=== PATIENT | female | born 1955 | race Caucasian/White ===

== ENCOUNTER 2022-12-10 22:02 | Inpatient (IN) | payer MEDICARE, OTHER ==
[2022-12-10] MEDS ORDERED: SODIUM CHLORIDE 0.9% 1,000 ML IV STA (23:37)
[2022-12-10] MEDS ORDERED: KETOROLAC 15 MG/ML 1 ML VIAL IVP STA (23:37)
[2022-12-10] MEDS ORDERED: ONDANSETRON 4 MG/2 ML VIAL IVP STA (23:37)
[2022-12-11 00:02] LABS: Basophils % (A) 0 %; Eosinophils # (A) 0.1 k/uL (0-0.7); Eosinophils % (A) 1 %; HGB 12.8 gm/dL (11.4-16.0); Lymphocytes # (A) 1.7 k/uL (1.0-4.8); Lymphocytes % (A) 17 %; MCH 31.6 pg (25.0-35.0); MCHC 35.6 g/dL (31.0-37.0); MCV 88.7 fL (80.0-100.0); Mean Platelet Volume 7.9; Monocytes # (A) 0.6 k/uL (0-1.0); Monocytes % (A) 6 %; Neutrophils # (A) 7.4 k/uL (1.3-7.7); Neutrophils % (A) 73 %; Platelet Count 206 k/uL (150-450); RBC 4.06 m/uL (3.80-5.40); RDW 13.2 % (11.5-15.5); WBC 10.2 k/uL (3.8-10.6)
[2022-12-11 00:10] LABS: Appearance,Urine Clear (Clear); Bilirubin,Urine Negative (Negative); Blood,Urine Negative (Negative); Color,Urine Colorless; Glucose,Urine (UA) Negative (Negative); Ketones,Urine Trace (Negative); Leukocyte Esterase,Urine Small (Negative); Nitrite,Urine Negative (Negative); PH, Urine 7.5 (5.0-8.0); Protein,Urine Negative (Negative); RBC,Urine 1 /hpf (0-5); Specific Gravity,Urine 1.004 (1.001-1.035); Urobilinogen,Urine <2.0 mg/dL (<2.0); WBC,Urine 8 /hpf (0-5)
[2022-12-11 00:19] LABS: ALT 17 U/L (4-34); AST 29 U/L (14-36); African American GFR (CKD) >90 (>60 ml/min/1.73 sqM); Alkaline Phosphatase 61 U/L (38-126); Anion Gap 11 mmol/L; Blood Urea Nitrogen 9 mg/dL (7-17); Calcium 8.7 mg/dL (8.4-10.2); Carbon Dioxide 21 mmol/L (22-30); Chloride 84 mmol/L (98-107); Glucose 99 mg/dL (74-99); Lipase 43 U/L (23-300); Non-African American GFR(CKD) >90 (>60 ml/min/1.73 sqM); Potassium 4.3 mmol/L (3.5-5.1); Total Bilirubin 0.8 mg/dL (0.2-1.3); Total Protein 6.4 g/dL (6.3-8.2)
[2022-12-11 00:34] LABS: Sodium 116 mmol/L (137-145)
[2022-12-11] MEDS ORDERED: SODIUM CHLORIDE 0.9% 1,000 ML IV STA (01:18)
--- NOTE | 2022-12-11 04:18 | US ---
EXAM: US Retroperitoneal Limited, Renal CLINICAL HISTORY: ITS.REASON US Reason: hyponatremia TECHNIQUE: Real-time limited ultrasound of the retroperitoneum with image documentation. COMPARISON: No relevant prior studies available. FINDINGS: Right Kidney: 9 x 4.3 x 4.9 cm Left Kidney: 9.5 x 4.6 x 4.1 cm Right Kidney: No hydronephrosis Left Kidney: No hydronephrosis Bladder: anechoic Jets seen: Left only. There is no evidence for hydronephrosis at this point in time. No nephrolithiasis is seen. IMPRESSION: There is no evidence for hydronephrosis at this point in time. No nephrolithiasis is seen.
[2022-12-11 04:55] LABS: ALT 15 U/L (4-34); AST 27 U/L (14-36); African American GFR (CKD) >90 (>60 ml/min/1.73 sqM); Albumin 3.6 g/dL (3.5-5.0); Alkaline Phosphatase 50 U/L (38-126); Anion Gap 7 mmol/L; Blood Urea Nitrogen 8 mg/dL (7-17); Calcium 8.3 mg/dL (8.4-10.2); Carbon Dioxide 23 mmol/L (22-30); Chloride 89 mmol/L (98-107); Glucose 93 mg/dL (74-99); Non-African American GFR(CKD) >90 (>60 ml/min/1.73 sqM); Potassium 4.1 mmol/L (3.5-5.1); Total Bilirubin 0.9 mg/dL (0.2-1.3); Total Protein 5.9 g/dL (6.3-8.2)
[2022-12-11 05:08] LABS: Sodium 119 mmol/L (137-145)
--- NOTE | 2022-12-11 05:24 | ED ---
Female Urogenital HPI - General Chief complaint: Urogenital Stated complaint: anxiety Time Seen by Provider: 12/10/22 23:30 Source: patient Mode of arrival: ambulatory Limitations: no limitations - History of Present Illness Initial comments: Patient is a 67-year-old female who presents to the emergency department for weakness. Patient states "she just doesn't feel good". States on 11/28 she had tumor removal in the bladder and right kidney with Dr. Bunn. States biopsy came back as bladder cancer. She has not been referred to an oncologist yet. S he reports nausea without vomiting and lightheadedness. No chest pain or shortness of breath. She reports mild pain in her right middle back, no injury. She denies fever, chills, abdominal pain, burning with urination, increased urinary frequency/hesitancy, blood in the urine. Patient does note she had a Barrow catheter removed on Sunday. - Related Data Allergies Allergy/AdvReac Type Severity Reaction Status Date / Time prednisone Allergy Rash/Hives Verified 12/10/22 22:23 propoxyphene [From Darvon] Allergy Rapid Verified 12/10/22 22:23 Heart Rate Review of Systems ROS Statement: Those systems with pertinent positive or pertinent negative responses have been documented in the HPI. ROS Other: All systems not noted in ROS Statement are negative. Past Medical History Past Medical History: Asthma, Cancer, COPD, Eye Disorder, Hearing Disorder / Deafness, Osteoarthritis (OA) History of Any Multi-Drug Resistant Organisms: None Reported Past Surgical History: Hysterectomy Additional Past Surgical History / Comment(s): tailbone removal, biopsy Past Psychological History: No Psychological Hx Reported Smoking Status: Current some day smoker Past Alcohol Use History: None Reported Past Drug Use History: None Reported General Exam Limitations: no limitations General appearance: alert, in no apparent distress Head exam: Present: atraumatic, normocephalic, normal inspection Eye exam: Present: normal appearance, PERRL, EOMI. Absent: scleral icterus, conjunctival injection, periorbital swelling Respiratory exam: Present: normal lung sounds bilaterally. Absent: respiratory distress, wheezes, rales, rhonchi, stridor Cardiovascular Exam: Present: regular rate, normal rhythm, normal heart sounds. Absent: systolic murmur, diastolic murmur, rubs, gallop, clicks GI/Abdominal exam: Present: soft, normal bowel sounds. Absent: distended, tenderness, guarding, rebound, rigid Extremities exam: Present: normal inspection, full ROM, tenderness, normal capillary refill. Absent: pedal edema Back exam: Present: normal inspection, full ROM, tenderness. Absent: CVA tenderness (R), CVA tenderness (L), paraspinal tenderness, vertebral tenderness Neurological exam: Present: alert, oriented X3, CN II-XII intact Psychiatric exam: Present: normal affect, normal mood Skin exam: Present: warm, dry, intact, normal color. Absent: rash Course Vital Signs 12/10/22 22:23 Temperature 98.9 F Pulse Rate 75 Respiratory 18 Rate Blood Pressure 164/92 O2 Sat by Pulse 95 Oximetry Medical Decision Making - Medical Decision Making Was pt. sent in by a medical professional or institution (OLAMIDE [place], DIGITAL ASSET COORDINATOR, urgent care, hospital, or care home...) When possible be specific @ -[No] Did you speak to anyone other than the patient for history (EMS, parent, family, police, friend...)? What history was obtained from this source @ -[No] Did you review nursing and triage notes (agree or disagree)? Why? @ -[I reviewed and agree with nursing and triage notes] Were old charts reviewed (outside hosp., previous admission, EMS record, old EKG, old radiological studies, urgent care reports/EKG's, care home records)? Report findings @ -[No old charts were reviewed] Differential Diagnosis (chest pain, altered mental status, abdominal pain women, abdominal pain men, vaginal bleeding, weakness, fever, dyspnea, syncope, headache, dizziness, GI bleed, back pain, seizure, CVA, palpatations, mental health)? @ -Differential Weakness: Hypoglycemia, shock, sepsis, hyponatremia, anemia, infection, VA, ETOH, adverse medicine reaction, overdose, stroke, this is not meant to be an all-inclusive list. EKG interpreted by me (3pts min.). @ -[As above] X-rays interpreted by me (1pt min.). @ -[None done] CT interpreted by me (1pt min.). @ -[None done] U/S interpreted by me (1pt. min.). @ -[None done] What testing was considered but not performed or refused? (CT, X-rays, U/S, labs)? Why? @ -[None] What meds were considered but not given or refused? Why? @ -Offered anxiety medication patient refused. Did you discuss the management of the patient with other professionals (professionals i.e. , PA, DIGITAL ASSET COORDINATOR, lab, RT, psych nurse, delinquency prevention social worker, range operator, teacher, chief medical officer, nurse case management)? Give summary @ -Yes, Dr. Rdz. See hospital course. Was smoking cessation discussed for >3mins.? @ -[No] Was critical care preformed (if so, how long)? @ -[No] Were there social determinants of health that impacted care today? How? (Homelessness, low income, unemployed, alcoholism, drug addiction, transportation, low edu. Level, literacy, decrease access to med. care, residential, rehab)? @ -[No] Was there de-escalation of care discussed even if they declined (Discuss DNR or withdrawal of care, Hospice)? DNR status @ -[No] What co-morbidities impacted this encounter? (DM, HTN, Smoking, COPD, CAD, Cancer, CVA, ARF, Chemo, Hep., AIDS, mental health diagnosis, sleep apnea, morbid obesity)? @ -[None] Was patient admitted / discharged? Hospital course, mention meds given and route, prescriptions, significant lab abnormalities, going to OR and other pertinent info. @ -Patient presenting for weakness and malaise with nausea after recent cancer diagnosis. A&O x 4. Physical exam unremarkable. Laboratory studies obtained and significant for hyponatremia at 116. Patient given normal saline bolus and placed on windows infrastructure engineer. I did speak with Dr. Rdz who recommended continuation of normal saline with fluid restriction. He requested a repeat sodium in 4-5 hours for disposition. Repeat sodium is 119. Patient does not have symptoms of hyponatremia she is hemodynamically stable and will be admitted to medical floor instead of the ICU. Case discussed with Dr. Agrawal who accepts admission. Undiagnosed new problem with uncertain prognosis? @ -[No] Drug Therapy requiring intensive monitoring for toxicity (Heparin, Nitro, Insulin, Cardizem)? @ -[No] Were any procedures done? @ -[No] Diagnosis/symptom? @ -hyponatremia Acute, or Chronic, or Acute on Chronic? @ -acute Uncomplicated (without systemic symptoms) or Complicated (systemic symptoms)? @ -[default] Side effects of treatment? @ -[No] Exacerbation, Progression, or Severe Exacerbation? @ -[No] Poses a threat to life or bodily function? How? (Chest pain, USA, VA, pneumonia, PE, COPD, DKA, ARF, appy, cholecystitis, CVA, Diverticulitis, Homicidal, Suicidal, threat to staff... and all critical care pts) @ -yes Dr. Mayen is by attending - Lab Data Result diagrams: 12/10/22 23:47 12/11/22 04:29 Lab Results 12/10/22 12/10/22 12/10/22 Range/Units 23:30 23:30 23:47 WBC 10.2 (3.8-10.6) k/uL RBC 4.06 (3.80-5.40) m/uL Hgb 12.8 (11.4-16.0) gm/dL Hct 36.0 (34.0-46.0) % MCV 88.7 (80.0-100.0) fL MCH 31.6 (25.0-35.0) pg MCHC 35.6 (31.0-37.0) g/dL RDW 13.2 (11.5-15.5) % Plt Count 206 (150-450) k/uL MPV 7.9 Neutrophils % 73 % Lymphocytes % 17 % Monocytes % 6 % Eosinophils % 1 % Basophils % 0 % Neutrophils # 7.4 (1.3-7.7) k/uL Lymphocytes # 1.7 (1.0-4.8) k/uL Monocytes # 0.6 (0-1.0) k/uL Eosinophils # 0.1 (0-0.7) k/uL Basophils # 0.0 (0-0.2) k/uL Sodium (137-145) mmol/L Potassium (3.5-5.1) mmol/L Chloride (98-107) mmol/L Carbon Dioxide (22-30) mmol/L Anion Gap mmol/L BUN (7-17) mg/dL Creatinine (0.52-1.04) mg/dL Est GFR (CKD-EPI)AfAm (>60 ml/min/1.73 sqM) Est GFR (CKD-EPI)NonAf (>60 ml/min/1.73 sqM) Glucose (74-99) mg/dL Osmolality (280-301) mosm/kg Plasma Lactic Acid George (0.7-2.0) mmol/L Calcium (8.4-10.2) mg/dL Total Bilirubin (0.2-1.3) mg/dL AST (14-36) U/L ALT (4-34) U/L Alkaline Phosphatase (38-126) U/L Total Protein (6.3-8.2) g/dL Albumin (3.5-5.0) g/dL Lipase (23-300) U/L Urine Color Colorless Urine Appearance Clear (Clear) Urine pH 7.5 (5.0-8.0) Ur Specific [place] 1.004 (1.001-1.035) Urine Protein Negative (Negative) Urine Glucose (UA) Negative (Negative) Urine Ketones Trace H (Negative) Urine Blood Negative (Negative) Urine Nitrite Negative (Negative) Urine Bilirubin Negative (Negative) Urine Urobilinogen <2.0 (<2.0) mg/dL Ur Leukocyte Esterase Small H (Negative) Urine RBC 1 (0-5) /hpf Urine WBC 8 H (0-5) /hpf Urine Osmolality 180 (50-1400) mosm/kg 12/10/22 12/10/22 12/10/22 Range/Units 23:47 23:47 23:47 WBC (3.8-10.6) k/uL RBC (3.80-5.40) m/uL Hgb (11.4-16.0) gm/dL Hct (34.0-46.0) % MCV (80.0-100.0) fL MCH (25.0-35.0) pg MCHC (31.0-37.0) g/dL RDW (11.5-15.5) % Plt Count (150-450) k/uL MPV Neutrophils % % Lymphocytes % % Monocytes % % Eosinophils % % Basophils % % Neutrophils # (1.3-7.7) k/uL Lymphocytes # (1.0-4.8) k/uL Monocytes # (0-1.0) k/uL Eosinophils # (0-0.7) k/uL Basophils # (0-0.2) k/uL Sodium 116 L* (137-145) mmol/L Potassium 4.3 (3.5-5.1) mmol/L Chloride 84 L (98-107) mmol/L Carbon Dioxide 21 L (22-30) mmol/L Anion Gap 11 mmol/L BUN 9 (7-17) mg/dL Creatinine 0.43 L (0.52-1.04) mg/dL Est GFR (CKD-EPI)AfAm >90 (>60 ml/min/1.73 sqM) Est GFR (CKD-EPI)NonAf >90 (>60 ml/min/1.73 sqM) Glucose 99 (74-99) mg/dL Osmolality 241 L* (280-301) mosm/kg Plasma Lactic Acid George 0.8 (0.7-2.0) mmol/L Calcium 8.7 (8.4-10.2) mg/dL Total Bilirubin 0.8 (0.2-1.3) mg/dL AST 29 (14-36) U/L ALT 17 (4-34) U/L Alkaline Phosphatase 61 (38-126) U/L Total Protein 6.4 (6.3-8.2) g/dL Albumin 4.0 (3.5-5.0) g/dL Lipase 43 (23-300) U/L Urine Color Urine Appearance (Clear) Urine pH (5.0-8.0) Ur Specific [place] (1.001-1.035) Urine Protein (Negative) Urine Glucose (UA) (Negative) Urine Ketones (Negative) Urine Blood (Negative) Urine Nitrite (Negative) Urine Bilirubin (Negative) Urine Urobilinogen (<2.0) mg/dL Ur Leukocyte Esterase (Negative) Urine RBC (0-5) /hpf Urine WBC (0-5) /hpf Urine Osmolality (50-1400) mosm/kg 12/11/22 Range/Units 04:29 WBC (3.8-10.6) k/uL RBC (3.80-5.40) m/uL Hgb (11.4-16.0) gm/dL Hct (34.0-46.0) % MCV (80.0-100.0) fL MCH (25.0-35.0) pg MCHC (31.0-37.0) g/dL RDW (11.5-15.5) % Plt Count (150-450) k/uL MPV Neutrophils % % Lymphocytes % % Monocytes % % Eosinophils % % Basophils % % Neutrophils # (1.3-7.7) k/uL Lymphocytes # (1.0-4.8) k/uL Monocytes # (0-1.0) k/uL Eosinophils # (0-0.7) k/uL Basophils # (0-0.2) k/uL Sodium 119 L* (137-145) mmol/L Potassium 4.1 (3.5-5.1) mmol/L Chloride 89 L (98-107) mmol/L Carbon Dioxide 23 (22-30) mmol/L Anion Gap 7 mmol/L BUN 8 (7-17) mg/dL Creatinine 0.44 L (0.52-1.04) mg/dL Est GFR (CKD-EPI)AfAm >90 (>60 ml/min/1.73 sqM) Est GFR (CKD-EPI)NonAf >90 (>60 ml/min/1.73 sqM) Glucose 93 (74-99) mg/dL Osmolality (280-301) mosm/kg Plasma Lactic Acid George (0.7-2.0) mmol/L Calcium 8.3 L (8.4-10.2) mg/dL Total Bilirubin 0.9 (0.2-1.3) mg/dL AST 27 (14-36) U/L ALT 15 (4-34) U/L Alkaline Phosphatase 50 (38-126) U/L Total Protein 5.9 L (6.3-8.2) g/dL Albumin 3.6 (3.5-5.0) g/dL Lipase (23-300) U/L Urine Color Urine Appearance (Clear) Urine pH (5.0-8.0) Ur Specific [place] (1.001-1.035) Urine Protein (Negative) Urine Glucose (UA) (Negative) Urine Ketones (Negative) Urine Blood (Negative) Urine Nitrite (Negative) Urine Bilirubin (Negative) Urine Urobilinogen (<2.0) mg/dL Ur Leukocyte Esterase (Negative) Urine RBC (0-5) /hpf Urine WBC (0-5) /hpf Urine Osmolality (50-1400) mosm/kg Disposition Clinical Impression: Hyponatremia Disposition: ADMITTED IP TO THIS HOSP Condition: Stable Referrals: Teresa Subramanian [Primary Care Provider] - 1-2 days
[2022-12-11] MEDS ORDERED: NALOXONE 0.4 MG/ML 1 ML VIAL IV PRN (05:42)
[2022-12-11] MEDS ORDERED: MELATONIN 3 MG TABLET PO PRN (08:42)
[2022-12-11] MEDS ORDERED: HYDROcodone/APAP 5-325MG 1 EACH TAB PO PRN (08:42)
[2022-12-11] MEDS ORDERED: ONDANSETRON 4 MG/2 ML VIAL IVP PRN (08:42)
--- NOTE | 2022-12-11 09:04 | P.HPIM ---
History of Present Illness H&P Date: 12/11/22 Patient is a 67-year-old female with asthma, osteoarthritis, and nicotine dependency who presented to the hospital with complaints of "not feeling good". She had a bladder tumor ressection and right kidney biopsy on 11/28/[address] Nova. In the ER she underwent an extensive evaluation. Initial vital signs were remarkable for hypertension with a blood pressure 164/92. Initial laboratory analysis was remarkable for sodium of 116, chloride 84, carbon dioxide 21, creatinine 0.43, and osmolality of 241. In the ER she was given 1 L of normal saline, Zofran, and Toradol. Renal ultrasound was performed which showed no hydronephrosis. Nephrology was contacted. Arrangements are made for admission. Patient seen and examined at bedside. She had a bladder tumor ressection and right kidney biopsy on 11/28/[address] Nova. She had baires removed on 12/08/22. She diens any difficulty with urination at home.Starting yesterday after breakfast she started to feel off and nauseated which increaed in intensity. Pain and tenderness in her abd and back. She was feeling very weak like she could not stand up. She was feeling dizzy as well. No chest pain or shortness of breath. No fever but did have some chills. She had been eating well till yesterday when she was so nauseated. On discharge home she was sent with toradol, zofran, and keflex. Has been using tylenol at home. Vital signs reviewed General: nontoxic, no distress, appears at stated age Derm: warm, dry Eyes: EOMI, no lid lag, anicteric sclera, pupils equal round reactive to light ENT: Nose and ears atraumatic, no thrush, no pharyngeal erythema Cardiovascular: S1S2 reg, no murmur, positive posterior tibial pulse bilateral, no edema, capillary refill less than 2 seconds Lungs: clear to auscultation bilateral, no rhonchi, no rales, no wheeze, no accessory muscle use Abdominal: soft, nontender to palpation, no guarding, no appreciable organomegaly, normal bowel sounds Ext: no gross muscle atrophy, muscle strength 5 out of 5 in all 4 extremities, no contractures Neuro: CN II-XII grossly intact, light touch intact all 4 extremities, finger to nose within normal limits, Psych: Alert, oriented, appropriate affect Assessment: Hyponatremia- undetermined etiology Bladder tumor with recent resection COPD without exacerbation Arthritis Nicotine dependency Imaging: Renal ultrasound was performed which showed no hydronephrosis. Data Review: Initial laboratory analysis was remarkable for sodium of 116, chloride 84, carbon dioxide 21, creatinine 0.43, and osmolality of 241. Urine Osmolality of 181. Plan: - Admit patient to , mix house tender notified - case discussed with Dr. Rdz and plan will be for fluid restriction, following labs - fall and seizure precautions - BMP now and in 6 hours - Resume home medications of calcium 600 mg daily, PPI, & Symbicort 1 puff twice daily - Maintain baires cath at this time - Dr. Nova notified of admission willdiscuss treatment options with patient regarding biopsy results. - Tylenol 650 mg 4 times daily - [place] 5/325 mg 4 times daily prn pain - BMP and CMC in AM The patient is admitted with an anticipated greater than 2 midnight stay for evaluation of Hyponatremia. Surrogate decision-maker: Son CODE STATUS:Full DVT prophylaxis: SCDs Discussed with: Patient, nursing, Dr. Rdz Anticipated discharge date: [facility] clinical course Anticipated discharge place: [facility] This dictation was prepared using [employer] voice recognition software. Though every attempt is made to correct errors during during dictation some may still exist. Past Medical History Past Medical History: Asthma, Cancer, COPD, Eye Disorder, Hearing Disorder / Deafness, Osteoarthritis (OA) Additional Past Medical History / Comment(s): Glaucoma History of Any Multi-Drug Resistant Organisms: None Reported Past Surgical History: Hysterectomy Additional Past Surgical History / Comment(s): tailbone removal, biopsy Past Psychological History: No Psychological Hx Reported Smoking Status: Current some day smoker Past Alcohol Use History: None Reported Past Drug Use History: None Reported Medications and Allergies Home Medications Medication Instructions Recorded Confirmed Type Acetaminophen [Tylenol Extra 500 mg PO Q6H PRN 12/11/22 12/11/22 History Strength] Brimonidine Tartrate [Alphagan P 1 drops BOTH EYES BID 12/11/22 12/11/22 History 0.2% Ophth Soln] Calcium Carbonate [Calcium] 600 mg PO DAILY 12/11/22 12/11/22 History Cholecalciferol [Vitamin D3 (25 25 mcg PO DAILY 12/11/22 12/11/22 History Mcg = 1000 Iu)] Esomeprazole Magnesium [NexIUM] 40 mg PO DAILY 12/11/22 12/11/22 History Fluticasone Propion/Salmeterol 1 puff INHALATION RT-BID 12/11/22 12/11/22 History [Advair Hfa 45-21 Mcg Inhaler] Latanoprost/Pf [Latanoprost 0.005% 1 drop BOTH EYES HS 12/11/22 12/11/22 History Eye Drop] Multivitamins, Thera [Multivitamin 1 tab PO DAILY 12/11/22 12/11/22 History (formulary)] Ondansetron [Zofran] 4 mg PO Q6H PRN 12/11/22 12/11/22 History Allergies Allergy/AdvReac Type Severity Reaction Status Date / Time prednisone Allergy Rash/Hives Verified 12/11/22 08:13 propoxyphene [From Darvon] Allergy Rapid Verified 12/11/22 08:13 Heart Rate Physical Exam Osteopathic Statement: *. No significant issues noted on an osteopathic structural exam other than those noted in the History and Physical/Consult. Vitals: Vital Signs Temp Pulse Resp BP Pulse Ox 12/11/22 06:00 69 16 147/90 95 12/11/22 05:00 98.8 F 66 16 145/86 96 12/11/22 01:00 73 17 143/100 95 12/10/22 22:23 98.9 F 75 18 164/92 95 Intake and Output 12/10/22 12/11/22 12/11/22 22:59 06:59 14:59 Output Total 1200 Balance -1200 Output: Urine 1200 Uretheral (Baires) 1200 Other: Weight 53.524 kg Results CBC & Chem 7: 12/10/22 23:47 12/11/22 04:29 Labs: Abnormal Lab Results - Last 24 Hours (Table) 12/10/22 12/10/22 12/10/22 Range/Units 23:30 23:47 23:47 Sodium 116 L* (137-145) mmol/L Chloride 84 L (98-107) mmol/L Carbon Dioxide 21 L (22-30) mmol/L Creatinine 0.43 L (0.52-1.04) mg/dL Osmolality 241 L* (280-301) mosm/kg Calcium (8.4-10.2) mg/dL Total Protein (6.3-8.2) g/dL Urine Ketones Trace H (Negative) Ur Leukocyte Esterase Small H (Negative) Urine WBC 8 H (0-5) /hpf 12/11/22 Range/Units 04:29 Sodium 119 L* (137-145) mmol/L Chloride 89 L (98-107) mmol/L Carbon Dioxide (22-30) mmol/L Creatinine 0.44 L (0.52-1.04) mg/dL Osmolality (280-301) mosm/kg Calcium 8.3 L (8.4-10.2) mg/dL Total Protein 5.9 L (6.3-8.2) g/dL Urine Ketones (Negative) Ur Leukocyte Esterase (Negative) Urine WBC (0-5) /hpf
[2022-12-11] MEDS: CALCIUM CARBONATE 500 MG CHEWABLE PO SCH (09:21)
[2022-12-11] MEDS: PANTOPRAZOLE 40 MG TABLET PO SCH (09:21)
[2022-12-11] MEDS: MULTIVITAMINS, THERA 1 EACH TAB PO SCH (09:21)
[2022-12-11] MEDS: BRIMONIDINE TARTRATE 0.2% DROPS 5 ML BTL BOTH EYES SCH ×2 (09:53→22:17)
--- NOTE | 2022-12-11 10:39 | P.NPCON ---
History of Present Illness - Reason for Consult hyponatremia - History of Present Illness Reason for consultation: Hyponatremia History of present illness: Patient is a 67-year-old female seen in consultation for hyponatremia. Patient's sodium level on admission 12/10/2022 at 11:47 PM was 116. Patient was started on normal saline at 75 mL an hour and repeat sodium at 4:30 in the morning was 119. Repeat labs are pending. Patient presented to the hospital due to generalized weakness and not feeling well. Patient states she's been nauseous since yesterday. Patient states she was recently diagnosed with bladder cancer and underwent removal of tumor. Patient's is a 40 catheter was removed on Sunday. This admission Barrow catheter was reinserted. Patient was not noted to have urinary retention. Patient states she also had a kidney biopsy done which came back positive for malignancy. She's being followed by urology for potential treatment options. No hydronephrosis was noted. Patient does admit to taking Toradol for pain. Denies vomiting or diarrhea. Denies history of diabetes. No history of coronary artery disease. Denies personal or family history of renal disease. Not on diuretics. Denies excessive fluid intake. She does admit to back pain. Mild dizziness but denies any falls. No fever or chills. Vital signs are stable. General: No acute distress. HEENT: Head exam is unremarkable. LUNGS: No audible rhonchi or wheezes. HEART: Rate and Rhythm are regular. ABDOMEN: Nontender. EXTREMITITES: No edema. Past Medical History Past Medical History: Asthma, Cancer, COPD, Eye Disorder, Hearing Disorder / Deafness, Osteoarthritis (OA) Additional Past Medical History / Comment(s): Glaucoma History of Any Multi-Drug Resistant Organisms: None Reported Past Surgical History: Hysterectomy Additional Past Surgical History / Comment(s): tailbone removal, biopsy Past Psychological History: No Psychological Hx Reported Smoking Status: Current some day smoker Past Alcohol Use History: None Reported Past Drug Use History: None Reported Medications and Allergies Home Medications Medication Instructions Recorded Confirmed Type Acetaminophen [Tylenol Extra 500 mg PO Q6H PRN 12/11/22 12/11/22 History Strength] Brimonidine Tartrate [Alphagan P 1 drops BOTH EYES BID 12/11/22 12/11/22 History 0.2% Ophth Soln] Calcium Carbonate [Calcium] 600 mg PO DAILY 12/11/22 12/11/22 History Cholecalciferol [Vitamin D3 (25 25 mcg PO DAILY 12/11/22 12/11/22 History Mcg = 1000 Iu)] Esomeprazole Magnesium [NexIUM] 40 mg PO DAILY 12/11/22 12/11/22 History Fluticasone Propion/Salmeterol 1 puff INHALATION RT-BID 12/11/22 12/11/22 History [Advair Hfa 45-21 Mcg Inhaler] Latanoprost/Pf [Latanoprost 0.005% 1 drop BOTH EYES HS 12/11/22 12/11/22 History Eye Drop] Multivitamins, Thera [Multivitamin 1 tab PO DAILY 12/11/22 12/11/22 History (formulary)] Ondansetron [Zofran] 4 mg PO Q6H PRN 12/11/22 12/11/22 History Allergies Allergy/AdvReac Type Severity Reaction Status Date / Time prednisone Allergy Rash/Hives Verified 12/11/22 08:13 propoxyphene [From Darvon] Allergy Rapid Verified 12/11/22 08:13 Heart Rate Physical Exam Vitals: Vital Signs Temp Pulse Resp BP Pulse Ox 12/11/22 06:00 69 16 147/90 95 12/11/22 05:00 98.8 F 66 16 145/86 96 12/11/22 01:00 73 17 143/100 95 12/10/22 22:23 98.9 F 75 18 164/92 95 Intake and Output 12/10/22 12/11/22 12/11/22 22:59 06:59 14:59 Output Total 1200 Balance -1200 Output: Urine 1200 Uretheral ([place]) 1200 Other: Weight 53.524 kg Results - Lab Results Most recent lab results Calcium 8.3 mg/dL (8.4-10.2) L 12/11/22 04:29 12/10/22 23:47 12/11/22 04:29 Assessment and Plan Plan: Assessment: 1. Hypovolemic hyponatremia improving with normal saline. 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 Urine sodium 25 and urine osmolality 180. 2. Bladder cancer status post resection and kidney biopsy. Per patient kidney biopsy was positive for malignancy. She is following with urology. 3. Nausea. Now on Zofran. Plan: Maintain IV fluids. Follow-up repeat labs. Check TSH. 1500 mL fluid restriction. Encourage oral intake, especially protein. Pain control. Thank you for the consultation. I will continue to follow the patient with you during her hospital stay.
[2022-12-11 11:22] LABS: African American GFR (CKD) >90 (>60 ml/min/1.73 sqM); Anion Gap 9 mmol/L; Blood Urea Nitrogen 7 mg/dL (7-17); Calcium 8.3 mg/dL (8.4-10.2); Carbon Dioxide 23 mmol/L (22-30); Chloride 92 mmol/L (98-107); Glucose 119 mg/dL (74-99); Non-African American GFR(CKD) >90 (>60 ml/min/1.73 sqM); Potassium 4.5 mmol/L (3.5-5.1); Sodium 124 mmol/L (137-145)
[2022-12-11] MEDS ORDERED: SODIUM CHLORIDE 0.9% 1,000 ML IV SCH (12:45)
--- NOTE | 2022-12-11 13:02 | P.GSCN ---
History of Present Illness Reason for Consult: Bladder cancer History of present illness: This is a 67 yo female admitted to the hospital with hyponatremia, sodium 116. She had a recent transurethral resection of a bladder tumor on November 26, and biopsy of the right-sided renal pelvis mass. Biopsy of the bladder tumor came back as high-grade T1 bladder cancer, biopsy of the renal pelvis tumor came back as transitional cell carcinoma. She was seen in the office on December 08 catheter was removed at that time. She indicated since the follow-up she has not been feeling well. She indicated she's voiding without any issues, denies any gross hematuria or dysuria. Had a renal bladder ultrasound that showed no hy dronephrosis or abnormality within the bladder. Review of Systems - Constitutional Denies fever, Denies weight loss - EENT Ears, nose, mouth and throat: Denies dysphagia - Cardiovascular Denies chest pain, Denies shortness of breath - Respiratory Denies cough, Denies 7 - Gastrointestinal Reports as per HPI - Neurological Denies headaches, Denies syncope Past Medical History Past Medical History: Asthma, Cancer, COPD, Eye Disorder, Hearing Disorder / Deafness, Osteoarthritis (OA) Additional Past Medical History / Comment(s): Glaucoma History of Any Multi-Drug Resistant Organisms: None Reported Past Surgical History: Hysterectomy Additional Past Surgical History / Comment(s): tailbone removal, biopsy Past Psychological History: No Psychological Hx Reported Smoking Status: Current some day smoker Past Alcohol Use History: None Reported Past Drug Use History: None Reported Medications and Allergies Home Medications Medication Instructions Recorded Confirmed Type Acetaminophen [Tylenol Extra 500 mg PO Q6H PRN 12/11/22 12/11/22 History Strength] Brimonidine Tartrate [Alphagan P 1 drops BOTH EYES BID 12/11/22 12/11/22 History 0.2% Ophth Soln] Calcium Carbonate [Calcium] 600 mg PO DAILY 12/11/22 12/11/22 History Cholecalciferol [Vitamin D3 (25 25 mcg PO DAILY 12/11/22 12/11/22 History Mcg = 1000 Iu)] Esomeprazole Magnesium [NexIUM] 40 mg PO DAILY 12/11/22 12/11/22 History Fluticasone Propion/Salmeterol 1 puff INHALATION RT-BID 12/11/22 12/11/22 History [Advair Hfa 45-21 Mcg Inhaler] Latanoprost/Pf [Latanoprost 0.005% 1 drop BOTH EYES HS 12/11/22 12/11/22 History Eye Drop] Multivitamins, Thera [Multivitamin 1 tab PO DAILY 12/11/22 12/11/22 History (formulary)] Ondansetron [Zofran] 4 mg PO Q6H PRN 12/11/22 12/11/22 History Allergies Allergy/AdvReac Type Severity Reaction Status Date / Time prednisone Allergy Rash/Hives Verified 12/11/22 08:13 propoxyphene [From Darvon] Allergy Rapid Verified 12/11/22 08:13 Heart Rate Surgical - Exam Vital Signs Temp Pulse Resp BP Pulse Ox 98.9 F 75 18 164/92 95 12/10/22 22:23 12/10/22 22:23 12/10/22 22:23 12/10/22 22:23 12/10/22 22:23 - General no distress, no pain - Eyes normal ocular movement, no pale - ENT normal nares, normal mucosa - Respiratory normal expansion, normal respiratory effort - Abdomen Abdomen: soft, non tender - Psychiatric oriented to time, oriented to person, oriented to place Results - Labs 12/10/22 23:47 12/11/22 10:40 Abnormal Lab Results - Last 24 Hours (Table) 12/10/22 12/10/22 12/10/22 Range/Units 23:30 23:30 23:47 Sodium 116 L* (137-145) mmol/L Chloride 84 L (98-107) mmol/L Carbon Dioxide 21 L (22-30) mmol/L Creatinine 0.43 L (0.52-1.04) mg/dL Osmolality (280-301) mosm/kg Calcium (8.4-10.2) mg/dL Total Protein (6.3-8.2) g/dL Urine Ketones Trace H (Negative) Ur Leukocyte Esterase Small H (Negative) Urine WBC 8 H (0-5) /hpf Ur Random Sodium 25 L (40-220) mmol/L 12/10/22 12/11/22 Range/Units 23:47 04:29 Sodium 119 L* (137-145) mmol/L Chloride 89 L (98-107) mmol/L Carbon Dioxide (22-30) mmol/L Creatinine 0.44 L (0.52-1.04) mg/dL Osmolality 241 L* (280-301) mosm/kg Calcium 8.3 L (8.4-10.2) mg/dL Total Protein 5.9 L (6.3-8.2) g/dL Urine Ketones (Negative) Ur Leukocyte Esterase (Negative) Urine WBC (0-5) /hpf Ur Random Sodium (40-220) mmol/L Diabetes panel 12/10/22 12/11/22 Range/Units 23:47 04:29 Sodium 116 L* 119 L* (137-145) mmol/L Potassium 4.3 4.1 (3.5-5.1) mmol/L Chloride 84 L 89 L (98-107) mmol/L Carbon Dioxide 21 L 23 (22-30) mmol/L BUN 9 8 (7-17) mg/dL Creatinine 0.43 L 0.44 L (0.52-1.04) mg/dL Glucose 99 93 (74-99) mg/dL Calcium 8.7 8.3 L (8.4-10.2) mg/dL AST 29 27 (14-36) U/L ALT 17 15 (4-34) U/L Alkaline Phosphatase 61 50 (38-126) U/L Total Protein 6.4 5.9 L (6.3-8.2) g/dL Albumin 4.0 3.6 (3.5-5.0) g/dL Calcium panel 12/10/22 12/11/22 Range/Units 23:47 04:29 Calcium 8.7 8.3 L (8.4-10.2) mg/dL Albumin 4.0 3.6 (3.5-5.0) g/dL Pituitary panel 12/10/22 12/11/22 Range/Units 23:47 04:29 Sodium 116 L* 119 L* (137-145) mmol/L Potassium 4.3 4.1 (3.5-5.1) mmol/L Chloride 84 L 89 L (98-107) mmol/L Carbon Dioxide 21 L 23 (22-30) mmol/L BUN 9 8 (7-17) mg/dL Creatinine 0.43 L 0.44 L (0.52-1.04) mg/dL Glucose 99 93 (74-99) mg/dL Calcium 8.7 8.3 L (8.4-10.2) mg/dL Adrenal panel 12/10/22 12/11/22 Range/Units 23:47 04:29 Sodium 116 L* 119 L* (137-145) mmol/L Potassium 4.3 4.1 (3.5-5.1) mmol/L Chloride 84 L 89 L (98-107) mmol/L Carbon Dioxide 21 L 23 (22-30) mmol/L BUN 9 8 (7-17) mg/dL Creatinine 0.43 L 0.44 L (0.52-1.04) mg/dL Glucose 99 93 (74-99) mg/dL Calcium 8.7 8.3 L (8.4-10.2) mg/dL Total Bilirubin 0.8 0.9 (0.2-1.3) mg/dL AST 29 27 (14-36) U/L ALT 17 15 (4-34) U/L Alkaline Phosphatase 61 50 (38-126) U/L Total Protein 6.4 5.9 L (6.3-8.2) g/dL Albumin 4.0 3.6 (3.5-5.0) g/dL Assessment and Plan Assessment: 67-year-old female with history of high-grade T1 bladder cancer, 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 She status post TURBT on November 26. The hospital with hyponatremia. From urology standpoint she is voiding well without any issues. Renal U/S WNL -rediscussed the pathology with her and her daughter, she has a follow-up arranged for December 18, advised her to keep follow up at that point we'll make definitive decesion on how to proceed with treatment of her bladder and renal tumor
[2022-12-11 15:08] LABS: African American GFR (CKD) >90 (>60 ml/min/1.73 sqM); Anion Gap 6 mmol/L; Blood Urea Nitrogen 8 mg/dL (7-17); Calcium 8.4 mg/dL (8.4-10.2); Carbon Dioxide 25 mmol/L (22-30); Chloride 93 mmol/L (98-107); Glucose 92 mg/dL (74-99); Non-African American GFR(CKD) >90 (>60 ml/min/1.73 sqM); Potassium 4.5 mmol/L (3.5-5.1); Sodium 124 mmol/L (137-145)
[2022-12-11] MEDS ORDERED: SODIUM CHLORIDE 0.45% 1,000 ML IV SCH (15:15)
[2022-12-11] MEDS: ACETAMINOPHEN TAB 325 MG TAB PO PRN (16:14)
[2022-12-11] MEDS: SYMBICORT 80-4.5 MCG INHALER INHALATION SCH (21:09)
[2022-12-11] MEDS ORDERED: DEXTROSE 5% IN WATER 250 ML IV ONE (22:10)
[2022-12-11] MEDS: LATANOPROST 0.005% OPHTH DROPS 2.5 ML BTL BOTH EYES SCH (22:17)
[2022-12-11] MEDS: DEXTROSE 5% IN WATER 1,000 ML IV SCH (22:18)
[2022-12-12] MEDS ORDERED: DESMOPRESSIN ACETATE 4 MCG/ML VIAL (MDV) SQ STA (02:46)
[2022-12-12] MEDS: ACETAMINOPHEN TAB 325 MG TAB PO PRN (03:24)
[2022-12-12] MEDS: DEXTROSE 5% IN WATER 1,000 ML IV SCH (03:30)
[2022-12-12 06:32] LABS: African American GFR (CKD) >90 (>60 ml/min/1.73 sqM); Anion Gap 6 mmol/L; Blood Urea Nitrogen 8 mg/dL (7-17); Calcium 7.9 mg/dL (8.4-10.2); Carbon Dioxide 27 mmol/L (22-30); Chloride 93 mmol/L (98-107); Glucose 125 mg/dL (74-99); Non-African American GFR(CKD) >90 (>60 ml/min/1.73 sqM); Potassium 4.2 mmol/L (3.5-5.1); Sodium 126 mmol/L (137-145)
[2022-12-12] MEDS: SYMBICORT 80-4.5 MCG INHALER INHALATION SCH ×2 (08:07→21:26)
[2022-12-12] MEDS: MULTIVITAMINS, THERA 1 EACH TAB PO SCH (08:34)
[2022-12-12] MEDS: CALCIUM CARBONATE 500 MG CHEWABLE PO SCH (08:34)
[2022-12-12] MEDS: BRIMONIDINE TARTRATE 0.2% DROPS 5 ML BTL BOTH EYES SCH ×2 (08:34→20:10)
[2022-12-12] MEDS: PANTOPRAZOLE 40 MG TABLET PO SCH (08:34)
[2022-12-12 09:04] LABS: HCT 37.4 % (37.2-46.3); HGB 12.6 g/dL (12.0-15.0); MCH 30.3 pg (27.0-32.0); MCHC 33.7 g/dL (32.0-37.0); MCV 89.9 fL (80.0-97.0); Mean Platelet Volume 9.9 fL (9.5-12.2); NRBC Per 100 WBC 0 /100 WBCS (0.0-0.0); Platelet Count 198 X 10*3/uL (140-440); RBC 4.16 X 10*6/uL (4.10-5.20); RDW 13.2 % (11.5-14.5); WBC 6.27 X 10*3/uL (4.50-10.00)
--- NOTE | 2022-12-12 10:12 | P.PN ---
Subjective Patient is seen in follow-up for hyponatremia. Received a dose of DDAVP as well as D5W last night was filled rapid correction of hyponatremia. Sodium level 125 as of this morning. Oral intake is good. No nausea vomiting. Vital signs are stable. General: No acute distress. HEENT: Head exam is unremarkable. LUNGS: No audible rhonchi or wheezes. HEART: Rate and Rhythm are regular. ABDOMEN: Nontender. EXTREMITITES: No edema. Objective - Vital Signs Vital signs: Vital Signs Temp 97.9 F 12/12/22 07:09 Pulse 63 12/12/22 07:09 Resp 18 12/12/22 07:09 BP 128/81 12/12/22 07:09 Pulse Ox 94 L 12/12/22 07:09 FiO2 Intake & Output 12/11/22 12/12/22 12/12/22 18:59 06:59 18:59 Intake Total 450 Output Total 980 2350 Balance -530 -2350 Weight 53.524 kg Intake: Oral 450 Output: Urine 980 2350 Uretheral (Barrow) 2200 Other: Voiding Method Indwelling Catheter - Labs CBC & Chem 7: 12/12/22 05:39 12/12/22 07:21 Labs: Abnormal Lab Results - Last 24 Hours (Table) 12/11/22 12/11/22 12/11/22 Range/Units 10:40 14:40 19:42 Sodium 124 L 124 L 127 L (137-145) mmol/L Chloride 92 L 93 L (98-107) mmol/L Creatinine 0.51 L (0.52-1.04) mg/dL Glucose 119 H (74-99) mg/dL Calcium 8.3 L (8.4-10.2) mg/dL 12/11/22 12/12/22 12/12/22 Range/Units 23:54 02:00 05:39 Sodium 126 L 129 L 126 L (137-145) mmol/L Chloride 93 L (98-107) mmol/L Creatinine 0.47 L (0.52-1.04) mg/dL Glucose 125 H (74-99) mg/dL Calcium 7.9 L (8.4-10.2) mg/dL 12/12/22 Range/Units 07:21 Sodium 125 L (137-145) mmol/L Chloride (98-107) mmol/L Creatinine (0.52-1.04) mg/dL Glucose (74-99) mg/dL Calcium (8.4-10.2) mg/dL Assessment and Plan Plan: Assessment: 1. Hypovolemic hyponatremia improved with normal saline. 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 Urine sodium 25 and urine osmolality 180. TSH normal. Received DDAVP and D5W overnight. Sodium rapid correction of hypon atremia. Sodium level 125 this morning. 2. Bladder cancer status post TURBT and kidney biopsy. Per patient kidney biopsy was positive for malignancy. Urology following. 3. Nausea. Now on Zofran. Resolved. Plan: Encourage oral intake, especially protein. Repeat labs in the morning. Okay to DC Barrow catheter from nephrology standpoint.
--- NOTE | 2022-12-12 10:34 | P.PN ---
Subjective Patient is a 67-year-old female with asthma, osteoarthritis, and nicotine dependency who presented to the hospital with complaints of "not feeling good". She had a bladder tumor ressection and right kidney biopsy on 11/28/[address] Nova. In the ER she underwent an extensive evaluation. Initial vital signs were remarkable for hypertension with a blood pressure 164/92. Initial laboratory analysis was remarkable for sodium of 116, chloride 84, carbon dioxide 21, creatinine 0.43, and osmolality of 241. In the ER she was given 1 L of normal saline, Zofran, and Toradol. Renal ultrasound was performed which showed no hydronephrosis. Nephrology was contacted. Arrangements are made for admission. Her fluids were optimized and sodium was closely monitored. She was seen by Dr. Nova who will follow in the outapatient seeting to determined a course of action for her transitional cell carcinoma of the right renal pelvis. Patient seen and examined at bedside. No chest pain, SOB, nausea, or vomiting. Feeling much better than yesterday. Vital signs reviewed General: nontoxic, no distress, appears at stated age Cardiovascular: S1S2 reg, no murmur, positive posterior tibial pulse bilateral, Lungs: CTA bilateral, no rhonchi, no rales , no accessory muscle use Ext: no gross muscle atrophy, no edema, no contractures Neuro: CN II-XI grossly intact, no focal neuro deficits Psych: Alert, oriented, appropriate affect Assessment: Hyponatremia- undetermined etiology Bladder tumor with recent TURBT and transitional cell carcinoma of the right renal pelvis COPD without exacerbation Arthritis Nicotine dependency Imaging: No new imaging Data Review: Labs reviewed and remarkable for sodium of 125, chloride 93, Cr 0.47, glucose 125 VS reviewed - Temp 97.9, pulse 63, respirations 18, and blood pressure 128/82 and 94% on RA Plan: - await further nephrology recs - consider D/C of baires if okay with nephrology, it is okay with urology - She received 1 dose of DDAP - off IV fluids - Follow sodium closely - D/C seizure precautions - Conitnue with symbicort, tums, MVI DVT prophylaxis: SCDs Discussed with: Patient, nursing Anticipated discharge date: Pending clincial course Anticipated discharge place: Pending clinical course This dictation was prepared using [employer] voice recognition software. Though every attempt is made to correct errors during during dictation some may still exist. Objective - Vital Signs Vital signs: Vital Signs Temp 97.9 F 12/12/22 07:09 Pulse 63 12/12/22 07:09 Resp 18 12/12/22 07:09 BP 128/81 12/12/22 07:09 Pulse Ox 94 L 12/12/22 07:09 FiO2 Intake & Output 12/11/22 12/12/22 12/12/22 18:59 06:59 18:59 Intake Total 450 Output Total 980 2350 Balance -530 -2350 Weight 53.524 kg Intake: Oral 450 Output: Urine 980 2350 Uretheral (Baires) 2200 Other: Voiding Method Indwelling Catheter - Labs CBC & Chem 7: 12/12/22 05:39 12/12/22 07:21 Labs: Abnormal Lab Results - Last 24 Hours (Table) 12/11/22 12/11/22 12/11/22 Range/Units 10:40 14:40 19:42 Sodium 124 L 124 L 127 L (137-145) mmol/L Chloride 92 L 93 L (98-107) mmol/L Creatinine 0.51 L (0.52-1.04) mg/dL Glucose 119 H (74-99) mg/dL Calcium 8.3 L (8.4-10.2) mg/dL 12/11/22 12/12/22 12/12/22 Range/Units 23:54 02:00 05:39 Sodium 126 L 129 L 126 L (137-145) mmol/L Chloride 93 L (98-107) mmol/L Creatinine 0.47 L (0.52-1.04) mg/dL Glucose 125 H (74-99) mg/dL Calcium 7.9 L (8.4-10.2) mg/dL 12/12/22 Range/Units 07:21 Sodium 125 L (137-145) mmol/L Chloride (98-107) mmol/L Creatinine (0.52-1.04) mg/dL Glucose (74-99) mg/dL Calcium (8.4-10.2) mg/dL
[2022-12-12] MEDS: LATANOPROST 0.005% OPHTH DROPS 2.5 ML BTL BOTH EYES SCH (20:11)
[2022-12-13 06:38] LABS: African American GFR (CKD) >90 (>60 ml/min/1.73 sqM); Anion Gap 8 mmol/L; Blood Urea Nitrogen 12 mg/dL (7-17); Calcium 8.4 mg/dL (8.4-10.2); Carbon Dioxide 26 mmol/L (22-30); Chloride 95 mmol/L (98-107); Glucose 96 mg/dL (74-99); Magnesium 1.8 mg/dL (1.6-2.3); Non-African American GFR(CKD) >90 (>60 ml/min/1.73 sqM); Potassium 4.8 mmol/L (3.5-5.1); Sodium 129 mmol/L (137-145)
[2022-12-13] MEDS: PANTOPRAZOLE 40 MG TABLET PO SCH (06:53)
[2022-12-13] MEDS: CALCIUM CARBONATE 500 MG CHEWABLE PO SCH (06:53)
[2022-12-13] MEDS: MULTIVITAMINS, THERA 1 EACH TAB PO SCH (06:53)
[2022-12-13] MEDS: BRIMONIDINE TARTRATE 0.2% DROPS 5 ML BTL BOTH EYES SCH (06:53)
[2022-12-13] MEDS: SYMBICORT 80-4.5 MCG INHALER INHALATION SCH (08:05)
[2022-12-13 09:26] VITALS: BP 133/82; PULSE 63; RESP 18; TEMP 97.7
--- NOTE | 2022-12-13 10:16 | P.DS ---
Providers Date of admission: 12/11/22 07:40 Expected date of discharge: 12/13/22 Attending physician: Harish Agrawal MD Consults: 12/11/22 07:04 Consult Physician Routine Consulting Provider: Pollo Rdz Consult Reason/Comments: Hyponatremia Do you want consulting provider notified?: Yes 12/11/22 09:01 Consult Physician Routine Consulting Provider: Vinny Nova Consult Reason/Comments: Bladder Tumor Do you want consulting provider notified?: Yes Primary care physician: [facility] Course: Discharge Diagnosis: Hyponatremia, due to hypovolemia and SIADH from pain and nausea Bladder tumor with recent TURBT and transitional cell carcinoma of the right renal pelvis COPD without exacerbation Arthritis Nicotine dependency Hospital Course: Patient is a 67-year-old female with asthma, osteoarthritis, and nicotine dependency who presented to the hospital with complaints of "not feeling good". She had a bladder tumor ressection and right kidney biopsy on 11/28/[address] Nova. In the ER she underwent an extensive evaluation. Initial vital signs were remarkable for hypertension with a blood pressure 164/92. Initial laboratory analysis was remarkable for sodium of 116, chloride 84, carbon dioxide 21, creatinine 0.43, and osmolality of 241. In the ER she was given 1 L of normal saline, Zofran, and Toradol. Renal ultrasound was performed which showed no hydronephrosis. Nephrology was contacted. Arrangements are made for admission. Her fluids were optimized and sodium was closely monitored. She was seen by Dr. Nova who will follow in the outapatient seeting to determined a course of action for her transitional cell carcinoma of the right renal pelvis. Her sodium improved and she was determined stable for discharge. Follow-up: Dr. Rdz in 2 weeks, Dr. Nova on 12/18/22, Dr. Alysa JOSÉ in 2-3 days, repeat labs in 3 days. Sodium chlorid tabe 1 gram daily. Patient seen and examined at bedside. Doing well, no pain, nausea is resolved. She is worried about recurrence with he next procedure for the cancer. We discussed makeing sure anesthersia is aware of what happened and discussing with her primary to determine if a repeat sodium level 1-2 days after the procedure is appropriate. Vital signs reviewed and stable. General: nontoxic, no distress, appears at stated age Derm: warm, dry Head: atraumatic, normocephalic, symmetric Cardiovascular: S1S2 reg, no murmur, positive posterior tibial pulse bilateral, Lungs: CTA bilateral, no rhonchi, no rales , no accessory muscle use Abdominal: soft, nontender to palpation, no guarding, no appreciable organomegaly Ext: no gross muscle atrophy, no edema, no contractures Psych: Alert, oriented, appropriate affect A total of 35 minutes of time were spent preparing this complex discharge summary. Patient was discharged on 12/13/22. This dictation was prepared using [employer] voice recognition software. Though every attempt is made to correct errors during during dictation some may still exist. Patient Condition at Discharge: Stable Plan - Discharge Summary Discharge Rx Participant: No New Discharge Prescriptions: New RX: Sodium Chloride Tab 1 gm PO DAILY #30 tablet Continue RX: Latanoprost/Pf [Latanoprost 0.005% Eye Drop] 1 drop BOTH EYES HS RX: Esomeprazole Magnesium [NexIUM] 40 mg PO DAILY RX: Acetaminophen [Tylenol Extra Strength] 500 mg PO Q6H PRN PRN Reason: Fever And/ Or Pain RX: Brimonidine Tartrate [Alphagan P 0.2% Ophth Soln] 1 drops BOTH EYES BID RX: Multivitamins, Thera [Multivitamin (formulary)] 1 tab PO DAILY RX: Cholecalciferol [Vitamin D3 (25 Mcg = 1000 Iu)] 25 mcg PO DAILY RX: Ondansetron [Zofran] 4 mg PO Q6H PRN PRN Reason: Nausea And Vomiting RX: Fluticasone Propion/Salmeterol [Advair Hfa 45-21 Mcg Inhaler] 1 puff INHALATION RT-BID RX: Calcium Carbonate [Calcium] 600 mg PO DAILY Discharge Medication List RX: Acetaminophen [Tylenol Extra Strength] 500 mg PO Q6H PRN 12/11/22 [History] RX: Brimonidine Tartrate [Alphagan P 0.2% Ophth Soln] 1 drops BOTH EYES BID 12/11/22 [History] RX: Calcium Carbonate [Calcium] 600 mg PO DAILY 12/11/22 [History] RX: Cholecalciferol [Vitamin D3 (25 Mcg = 1000 Iu)] 25 mcg PO DAILY 12/11/22 [History] RX: Esomeprazole Magnesium [NexIUM] 40 mg PO DAILY 12/11/22 [History] RX: Fluticasone Propion/Salmeterol [Advair Hfa 45-21 Mcg Inhaler] 1 puff INHALATION RT-BID 12/11/22 [History] RX: Latanoprost/Pf [Latanoprost 0.005% Eye Drop] 1 drop BOTH EYES HS 12/11/22 [History] RX: Multivitamins, Thera [Multivitamin (formulary)] 1 tab PO DAILY 12/11/22 [History] RX: Ondansetron [Zofran] 4 mg PO Q6H PRN 12/11/22 [History] RX: Sodium Chloride Tab 1 gm PO DAILY #30 tablet 12/13/22 [Rx] Follow up Appointment(s)/Referral(s): Vinny Nova MD [STAFF PHYSICIAN] - 12/18/22 (as scheduled) Pollo Rdz DO [STAFF PHYSICIAN] - 2 Weeks (office not asnwering Please call to schedule appointment ) Teresa Subramanian [Primary Care Provider] - 12/15/22 9:45 am Ambulatory/Diagnostic Orders: Basic Metabolic Panel [LAB.AMB] Time Frame: 3 Days, Location: None Selected Patient Instructions/Handouts: Hyponatremia (DC) Activity/Diet/Wound Care/Special Instructions: Activity: as tolerated Diet: regular Special Instructions: Blood work in 2-3 days please to recheck your sodium level Discharge Disposition: HOME SELF-CARE
--- NOTE | 2022-12-13 11:01 | P.PN ---
Subjective Patient is seen in follow-up for hyponatremia. Received a dose of DDAVP as well as D5W last night was filled rapid correction of hyponatremia. Sodium level 129 as of this morning. Oral intake is good. No nausea vomiting. Vital signs are stable. General: No acute distress. HEENT: Head exam is unremarkable. LUNGS: No audible rhonchi or wheezes. HEART: Rate and Rhythm are regular. ABDOMEN: Nontender. EXTREMITITES: No edema. Objective - Vital Signs Vital signs: Vital Signs Temp 97.7 F 12/13/22 08:05 Pulse 63 12/13/22 08:05 Resp 18 12/13/22 08:05 BP 133/82 12/13/22 08:05 Pulse Ox 95 12/13/22 08:05 FiO2 Intake & Output 12/12/22 12/13/22 12/13/22 18:59 06:59 18:59 Output Total 300 Balance -300 Output: Urine 300 Uretheral (Barrow) 300 Other: Voiding Method Indwelling Catheter # Voids 1 - Labs CBC & Chem 7: 12/12/22 05:39 12/13/22 06:20 Labs: Abnormal Lab Results - Last 24 Hours (Table) 12/13/22 Range/Units 06:20 Sodium 129 L (137-145) mmol/L Chloride 95 L (98-107) mmol/L Creatinine 0.50 L (0.52-1.04) mg/dL Assessment and Plan Plan: Assessment: 1. Hypovolemic hyponatremia improved with normal saline. 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 Urine sodium 25 and urine osmolality 180. TSH normal. Received DDAVP and D5W overnight. Sodium rapid correction of hyponatremia. Sodium level 129 this morning. 2. Bladder cancer status post TURBT and kidney biopsy. Per patient kidney biopsy was positive for malignancy. Urology following. 3. Nausea. Now on Zofran. Resolved. Plan: Encourage oral intake, especially protein. Add sodium chloride tab once daily. Repeat BMP in 2-3 days postdischarge. Follow up outpatient in 1 week.
== END 2022-12-13 11:17 | disposition home or self-care (01) | DRG 644 ==
LOC: EC 22:02 → 5NMEDONC 12-11 07:40 → 3SCARD 12-11 08:42 → 4SSUR 12-11 18:23
PROVIDERS: ADMIT Internal Medicine; ATTEND Internal Medicine
DX: E22.2 Syndrome of inappropriate secretion of antidiuretic hormone (principal); C65.1 Malignant neoplasm of right renal pelvis; C67.9 Malignant neoplasm of bladder, unspecified; E86.1 Hypovolemia; F17.210 Nicotine dependence, cigarettes, uncomplicated; F41.1 Generalized anxiety disorder; T39.395A Adverse effect of other nonsteroidal anti-inflammatory drugs [NSAID], initial encounter; J44.9 Chronic obstructive pulmonary disease, unspecified; M19.90 Unspecified osteoarthritis, unspecified site; H91.90 Unspecified hearing loss, unspecified ear; H40.9 Unspecified glaucoma; I10 Essential (primary) hypertension; R53.1 Weakness; F41.9 Anxiety disorder, unspecified; Z79.51 Long term (current) use of inhaled steroids; Z90.710 Acquired absence of both cervix and uterus; Z88.8 Allergy status to other drugs, medicaments and biological substances; X58.XXXA Exposure to other specified factors, initial encounter
CPT/HCPCS: 36415; 76770; 80048; 80053; 81001; 83605; 83690; 83735; 83930; 83935; 84132; 84295; 84300; 84443; 85025; 85027; 94640; 96361; 96374; 96375; 96376; 99285

== ENCOUNTER → 2023-01-02 | Outpatient (CLI) | payer MEDICARE, OTHER ==
[2023-01-02 15:06] LABS: Basophils # (A) 0.08 X 10*3/uL (0.00-0.10); Basophils % (A) 0.9 %; Eosinophils # (A) 0.17 X 10*3/uL (0.04-0.35); Eosinophils % (A) 1.8 %; HCT 42.6 % (37.2-46.3); HGB 13.7 g/dL (12.0-15.0); Immature Grans, Automated 0.4 %; Lymphocytes # (A) 2.03 X 10*3/uL (0.90-5.00); Lymphocytes % (A) 22.1 %; MCH 30.7 pg (27.0-32.0); MCHC 32.2 g/dL (32.0-37.0); MCV 95.5 fL (80.0-97.0); Mean Platelet Volume 10.2 fL (9.5-12.2); Monocytes % (A) 8.7 %; NRBC Per 100 WBC 0 /100 WBCS (0.0-0.0); Neutrophils # (A) 6.08 X 10*3/uL (1.80-7.70); Neutrophils % (A) 66.1 %; Platelet Count 226 X 10*3/uL (140-440); RBC 4.46 X 10*6/uL (4.10-5.20)
[2023-01-02 15:31] LABS: African American GFR (CKD) 103.7 (60.0-200.0); BUN/Creat Ratio 23.97 Ratio (12.00-20.00); Blood Urea Nitrogen 16.8 mg/dL (9.0-27.0); Calcium 9.3 mg/dL (8.7-10.3); Carbon Dioxide 27.7 mmol/L (20.0-27.5); Non-African American GFR(CKD) 89.5 (60.0-200.0); Potassium 4.6 mmol/L (3.5-5.5)
[2023-01-02 15:32] LABS: Appearance,Urine Clear (Clear); Bilirubin,Urine Negative (Negative); Blood,Urine Negative (Negative); Color,Urine Yellow (Yellow); Ketones,Urine Negative (Negative); Nitrite,Urine Negative (Negative); Specific Gravity,Urine 1.007 (1.001-1.030); Urobilinogen,Urine 0.2 (0.2,1.0)
[2023-01-02 15:36] LABS: Bacteria,Urine None Seen /HPF (None Seen)
== END | disposition home or self-care (01) ==
LOC: LABPAT 09:16
PROVIDERS: ATTEND Urology
DX: Z01.812 Encounter for preprocedural laboratory examination (principal); C67.9 Malignant neoplasm of bladder, unspecified; C64.1 Malignant neoplasm of right kidney, except renal pelvis; R31.29 Other microscopic hematuria
CPT/HCPCS: 80048; 81001; 85025; 87086

== ENCOUNTER → 2023-01-04 | Outpatient (CLI) | payer MEDICARE, OTHER | END | disposition home or self-care (01) | LOC: LABWHC1 08:12 | PROVIDERS: ATTEND Urology | DX: Z01.818 Encounter for other preprocedural examination (principal) | CPT/HCPCS: 93005 ==

== ENCOUNTER 2023-01-09 10:55 | Day surgery (SDC) | payer MEDICARE, OTHER ==
[2023-01-03 09:30] VITALS: BMI 20.2
--- NOTE | 2023-01-09 08:35 | P.HPIHPCON ---
History of Present Illness H&P Date: 01/09/23 This is a 67-year-old female with history of bladder cancer, right sided transitional cell carcinoma involving a right-sided renal pelvis. She underwent TURBT back in November, pathology came back as high-grade T1 bladder cancer. Discussed with her given this finding I recommend proceeding with a repeat resection. Discussed with her the risk which includes but not limited to bleeding, infection, and bladder perforation. Of note at time of TURBT retrograde pyelogram was performed which showed evidence of a right-sided renal pelvis mass, biopsy of the mass showed transitional cell carcinoma. I discussed with her option for that include nephroureterectomy versus laser ablation. She agreed to proceed with laser ablation of the renal pelvis tumor. Aware of the risk of bleeding infection, and high risk of recurrence. I discussed also risk of renal pelvis perforation injury to the kidney. Discussed also the need of close surveillance postoperatively. She understood all the risk and agreed to proceed Consent for Procedure: I have explained the operation/procedure to the patient, including the risks, benefits, side effects, alternative therapies (including not receiving the proposed treatment or service), the likelihood of the patient achieving his/her goals, and potential recuperation problems for the procedure/sedation/analgesia, as well as any blood products, if indicated. I also explained to the patient the risks, benefits and side effects of the alternatives, as well as the risks related to not receiving the proposed procedure, care, treatment, or services. Past Medical History Past Medical History: Asthma, Cancer, COPD, Eye Disorder, GERD/Reflux, Hearing Disorder / Deafness, Musculoskeletal Disorder, Osteoarthritis (OA) Additional Past Medical History / Comment(s): Glaucoma, Cataracts. hard of hearing. Recent bladder cancer, had surgery. Current right kidney tumor. Osteoporosis, Degenerative Disc Disease. Migraines. History of Any Multi-Drug Resistant Organisms: None Reported Past Surgical History: Hysterectomy Additional Past Surgical History / Comment(s): Tailbone removal, biopsy of kidney and bladder tumor removal. Past Anesthesia/Blood Transfusion Reactions: Postoperative Nausea & Vomiting (PONV) Additional Past Anesthesia/Blood Transfusion Reaction / Comment(s): Severe PONV, which lead to hyponatremia after last surgery. Past Psychological History: Anxiety Smoking Status: Former smoker Past Alcohol Use History: None Reported Additional Past Alcohol Use History / Comment(s): Quit smoking 11/07/2022, had smoked for 50 yrs, 1-2 cigarettes daily, if that. Past Drug Use History: None Reported - Past Family History Sister(s) Family Medical History: Cancer Additional Family Medical History / Comment(s): Lung cancer, . Medications and Allergies Home Medications Medication Instructions Recorded Confirmed Type Acetaminophen [Tylenol Extra 500 mg PO Q6H PRN 12/11/22 01/03/23 History Strength] Brimonidine Tartrate [Alphagan P 1 drops BOTH EYES BID 12/11/22 01/03/23 History 0.2% Ophth Soln] Calcium Carbonate [Calcium] 600 mg PO DAILY 12/11/22 01/03/23 History Cholecalciferol [Vitamin D3 (25 25 mcg PO DAILY 12/11/22 01/03/23 History Mcg = 1000 Iu)] Esomeprazole Magnesium [NexIUM] 40 mg PO QAM 12/11/22 01/03/23 History Fluticasone Propion/Salmeterol 1 puff INHALATION BID 12/11/22 01/03/23 History [Advair Hfa 45-21 Mcg Inhaler] Latanoprost/Pf [Latanoprost 0.005% 1 drop BOTH EYES HS 12/11/22 01/03/23 History Eye Drop] Multivitamins, Thera [Multivitamin 1 tab PO DAILY 12/11/22 01/03/23 History (formulary)] Ondansetron [Zofran] 4 mg PO Q6H PRN 12/11/22 01/03/23 History Sodium Chloride Tab 1 gm PO TID 01/03/23 01/03/23 History Allergies Allergy/AdvReac Type Severity Reaction Status Date / Time prednisone Allergy Rash/Hives Verified 01/03/23 09:04 propoxyphene [From Darvon] Allergy Rapid Verified 01/03/23 09:04 Heart Rate Surgical - Exam - General no distress, no pain - ENT normal nares, normal mucosa - Respiratory normal expansion, normal respiratory effort - Abdomen Abdomen: soft, non tender Assessment and Plan Assessment: OR for TURBT with right-sided ureteroscopy, laser ablation and stent insertion
[~2023-01-09 10:55] MED LIST: HYDROmorphone 0.5 MG/0.5 ML SYRINGE IVP PRN; LIDOCAINE 1% (10MG/ML) FOR IV START INTRADERMA PRN; MIDAZOLAM 2 MG/2 ML VIAL IV PRN; ONDANSETRON 4 MG/2 ML VIAL IVP ONE
[2023-01-09 11:57] VITALS: RESP 16
[2023-01-09] MEDS: LACTATED RINGERS 1,000 ML IV SCH (12:05)
[2023-01-09] MEDS ORDERED: NEOSTIGMINE 1 MG/ML 10 ML VIAL ONE (12:47)
[2023-01-09] MEDS ORDERED: LIDOCAINE 2% INJ 20 MG/ML (2 ML VIAL) ONE (12:47)
[2023-01-09] MEDS ORDERED: SUCCINYLCHOLINE CHLORIDE 200 MG/10 ML VIAL IV ONE (12:47)
[2023-01-09] MEDS ORDERED: PHENYLEPHRINE-0.9% NACL SYG 1,000 MCG/10 ML SYRINGE ONE (12:47)
[2023-01-09] MEDS ORDERED: ROCURONIUM 10 MG/ML (5 ML VIAL) IV ONE (12:47)
[2023-01-09] MEDS ORDERED: GLYCOPYRROLATE 0.2 MG/ML 2 ML VIAL ONE (12:47)
[2023-01-09] MEDS ORDERED: PROPOFOL 10 MG/ML 20 ML VIAL IV ONE (12:47)
[2023-01-09] MEDS ORDERED: MIDAZOLAM 2 MG/2 ML VIAL ONE (12:47)
[2023-01-09] MEDS ORDERED: fentaNYL (PF) 50 MCG/ML 2 ML AMP ONE (12:47)
[2023-01-09] MEDS ORDERED: HYDROcodone/APAP 5-325MG 1 EACH TAB PO PRN (12:52)
[2023-01-09] MEDS ORDERED: IOPAMIDOL-370 100ML BTL MISCELLANE ONE (13:16)
--- NOTE | 2023-01-09 14:02 | P.OP ---
Date of Procedure: 01/09/23 Preoperative Diagnosis: Bladder cancer, right-sided transitional cell carcinoma Postoperative Diagnosis: Same Procedure(s) Performed: Cystoscopy, TURBT (large), right-sided ureteroscopy, biopsy of the right renal pelvis tumor, laser ablation renal pelvis tumor and stent insertion Implants: 6-Equatorial [place]an by 24 cm stent in the right ureter Anesthesia: MAXIME Surgeon: Vinny Nova Estimated Blood Loss (ml): 25 Pathology: other (Bladder mass, right-sided renal cytology, right-sided renal tumor) Condition: stable Disposition: PACU Indications for Procedure: This is a 67-year-old female with history of bladder cancer, right sided transitional cell carcinoma involving a right-sided renal pelvis. She underwent TURBT back in November, pathology came back as high-grade T1 bladder cancer. Discussed with her given this finding I recommend proceeding with a repeat resection. Discussed with her the risk which includes but not limited to bleeding, infection, and bladder perforation. Of note at time of TURBT retrograde pyelogram was performed which showed evidence of a right-sided renal pelvis mass, biopsy of the mass showed transitional cell carcinoma. I discussed with her option for that include nephroureterectomy versus laser ablation. She agreed to proceed with laser ablation of the renal pelvis tumor. Aware of the risk of bleeding infection, and high risk of recurrence. I discussed also risk of renal pelvis perforation injury to the kidney. Discussed also the need of close surveillance postoperatively. She understood all the risk and agreed to proceed Operative Findings: Right-sided renal pelvis tumor, no evidence of recurrence within the bladder Description of Procedure: Patient brought to the operating room, general anesthesia was induced. She was prepped and draped in sterile fashion a placement dorsal lithotomy position. Resectoscope fitted with 25-Equatorial [place]an sheath was inserted per urethra, cystoscopy was performed which showed no evidence of any papillary lesions within the bladder. Using the bipolar resectoscope the previous scar along the left lateral wall was resected down to muscle. The area of resection was thoroughly fulgurated. Total area of resection was 5 cm. The specimen was irrigated out and sent to pathology. There was no evidence of bleeding or bladder perforation. At this time attention was carried to the right ureteral orifice, the right ureteral orifice was intubated with a a sensor wire. Next under fluoroscopy 1113 Equ[place] access sheath was passed over the wire into the proximal ureter. Next a flexible ureteroscope was inserted through the access sheath, I attempted to advance the scope into the kidney but there was evidence of looping of the ureter. I advanced a wire through the scope, and I was able to navigate the scope over the wire into the kidney. renoscopy was performed which showed a large tumor involving the renal pelvis. Using the stone basket and multiple biopsies were taken of the tumor, renal cytology was also obtained. Using the holmium laser the tumor was ablated down completely. There was no evidence of any additional lesions, or evidence of renal pelvis perforation. Pullback ureteroscopy was performed which showed no injury to the ureter or any ureteral tumors, as ureteroscope was withdrawn and a sensor wire was advanced through. Next a ureteral stent was passed over the wire, the proximal curl was visualized on fluoroscopy and the distal curl was was was using the cystoscope. A 20-Equ[place] B[place] was placed with return of clear urine. Patient tolerated procedure well was taken to recovery in stable condition
[2023-01-09] MEDS ORDERED: droPERidol 5 MG/2 ML VIAL IVP ONE (14:21)
[2023-01-09] MEDS ORDERED: LACTATED RINGERS 1,000 ML IV ONE (14:47)
[2023-01-09] MEDS: SODIUM CHLORIDE 0.9% 1,000 ML IV SCH ×2 (15:42→15:49)
[2023-01-09] MEDS: ACETAMINOPHEN TAB 325 MG TAB PO PRN ×2 (15:47→19:56)
[2023-01-09] MEDS: SODIUM CHLORIDE TAB 1 GM TAB PO SCH ×2 (15:48→21:04)
--- NOTE | 2023-01-09 15:51 | FL ---
Intraoperative/procedural fluoroscopic services were provided. Total fluoroscopy time is 3.29 minutes with a total of 3 submitted images to PACS. Please see the operative/procedural note for further det ails. DAP: [id number] mGym2
[2023-01-09] MEDS: ONDANSETRON 4 MG TAB PO PRN (18:22)
[2023-01-09] MEDS: SYMBICORT 80-4.5 MCG INHALER INHALATION SCH (20:17)
[2023-01-09] MEDS ORDERED: LATANOPROST 0.005% OPHTH DROPS 2.5 ML BTL BOTH EYES SCH (21:00)
[2023-01-09] MEDS: BRIMONIDINE TARTRATE 0.2% DROPS 5 ML BTL BOTH EYES SCH (21:04)
[2023-01-10] MEDS: ONDANSETRON 4 MG TAB PO PRN (04:54)
[2023-01-10] MEDS: ACETAMINOPHEN TAB 325 MG TAB PO PRN ×2 (04:54→08:48)
[2023-01-10] MEDS ORDERED: PANTOPRAZOLE 40 MG TABLET PO SCH (07:30)
[2023-01-10] MEDS: LACTATED RINGERS 1,000 ML IV SCH (07:38)
[2023-01-10 07:49] VITALS: BP 107/67; PULSE 63; TEMP 98.2
[2023-01-10 07:53] LABS: African American GFR (CKD) >90 (>60 ml/min/1.73 sqM); Anion Gap 7 mmol/L; Blood Urea Nitrogen 16 mg/dL (7-17); Carbon Dioxide 23 mmol/L (22-30); Chloride 102 mmol/L (98-107); Glucose 69 mg/dL (74-99); Non-African American GFR(CKD) >90 (>60 ml/min/1.73 sqM); Potassium 4.5 mmol/L (3.5-5.1); Sodium 132 mmol/L (137-145)
[2023-01-10] MEDS: SODIUM CHLORIDE TAB 1 GM TAB PO SCH (08:01)
[2023-01-10] MEDS: SODIUM CHLORIDE 0.9% 1,000 ML IV SCH (08:06)
[2023-01-10] MEDS: SYMBICORT 80-4.5 MCG INHALER INHALATION SCH (08:09)
--- NOTE | 2023-01-10 09:10 | P.DS ---
Providers Date of admission: The patient is 67. She underwent cystoscopy, rebiopsy of a previous bladder tumor site, right ureteroscopy with laser ablation of a renal pelvic tumor and stent insertion. The patient had postoperative nausea and was kept in the hospital overnight. She feels better this morning. Her nausea is diminished. She has taken Tylenol for pain. She has a history of hyponatremia. Her sodium this morning was 132. She does take oral sodium at home. He feels well enough to go home. She is given a prescription of Zofran. She'll take Tylenol for pain. She'll go home with an indwelling catheter. She'll follow-up with next week for catheter, stent removal and pathology discussion. Her condition is good Attending physician: Vinny Nova MD Primary care physician: Teresa Subramanian Plan - Discharge Summary Discharge Rx Participant: Yes New Discharge Prescriptions: No Action Latanoprost/Pf [Latanoprost 0.005% Eye Drop] 1 drop BOTH EYES HS Esomeprazole Magnesium [NexIUM] 40 mg PO QAM Acetaminophen [Tylenol Extra Strength] 500 mg PO Q6H PRN PRN Reason: Fever And/ Or Pain Brimonidine Tartrate [Alphagan P 0.2% Ophth Soln] 1 drops BOTH EYES BID Multivitamins, Thera [Multivitamin (formulary)] 1 tab PO DAILY Cholecalciferol [Vitamin D3 (25 Mcg = 1000 Iu)] 25 mcg PO DAILY Ondansetron [Zofran] 4 mg PO Q6H PRN PRN Reason: Nausea And Vomiting Fluticasone Propion/Salmeterol [Advair Hfa 45-21 Mcg Inhaler] 1 puff INHALATION BID Calcium Carbonate [Calcium] 600 mg PO DAILY Sodium Chloride Tab 1 gm PO TID Discharge Medication List Acetaminophen [Tylenol Extra Strength] 500 mg PO Q6H PRN 12/11/22 [History] Brimonidine Tartrate [Alphagan P 0.2% Ophth Soln] 1 drops BOTH EYES BID 12/11/22 [History] Calcium Carbonate [Calcium] 600 mg PO DAILY 12/11/22 [History] Cholecalciferol [Vitamin D3 (25 Mcg = 1000 Iu)] 25 mcg PO DAILY 12/11/22 [History] Esomeprazole Magnesium [NexIUM] 40 mg PO QAM 12/11/22 [History] Fluticasone Propion/Salmeterol [Advair Hfa 45-21 Mcg Inhaler] 1 puff INHALATION BID 12/11/22 [History] Latanoprost/Pf [Latanoprost 0.005% Eye Drop] 1 drop BOTH EYES HS 12/11/22 [History] Multivitamins, Thera [Multivitamin (formulary)] 1 tab PO DAILY 12/11/22 [History] Ondansetron [Zofran] 4 mg PO Q6H PRN 12/11/22 [History] Sodium Chloride Tab 1 gm PO TID 01/03/23 [History] Follow up Appointment(s)/Referral(s): Vinny Nova MD [STAFF PHYSICIAN] - 1 Week Discharge Disposition: HOME SELF-CARE
[2023-01-10] MEDS: BRIMONIDINE TARTRATE 0.2% DROPS 5 ML BTL BOTH EYES SCH (10:45)
== END 2023-01-10 12:09 | disposition home or self-care (01) ==
LOC: OR 10:55 → 5NMEDONC 14:10 → OR 01-10 12:09
PROVIDERS: ATTEND Urology
DX: C65.1 Malignant neoplasm of right renal pelvis (principal); Z85.51 Personal history of malignant neoplasm of bladder; N30.00 Acute cystitis without hematuria; J44.9 Chronic obstructive pulmonary disease, unspecified; M19.90 Unspecified osteoarthritis, unspecified site; H91.90 Unspecified hearing loss, unspecified ear; Z86.69 Personal history of other diseases of the nervous system and sense organs; M81.0 Age-related osteoporosis without current pathological fracture; G43.909 Migraine, unspecified, not intractable, without status migrainosus; Z98.890 Other specified postprocedural states; F41.9 Anxiety disorder, unspecified; Z87.891 Personal history of nicotine dependence; Z79.899 Other long term (current) drug therapy; Z88.8 Allergy status to other drugs, medicaments and biological substances; Z88.6 Allergy status to analgesic agent
CPT/HCPCS: 94640 ×2; 88108; 88305; 80048; 88342; 88341; 52356; C2625; C1758 ×4; C1769 ×3; J2250; J0330; J2710; J0690 ×3; J2405; J3010; J2370; J2704; Q9967; J1790; J2001

== ENCOUNTER → 2023-05-29 | Outpatient (CLI) | payer MEDICARE, OTHER ==
[2023-05-29 16:18] LABS: Basophils # (A) 0.06 X 10*3/uL (0.00-0.10); Basophils % (A) 0.7 %; Eosinophils # (A) 0.08 X 10*3/uL (0.04-0.35); HCT 41.6 % (37.2-46.3); HGB 13.2 d/dL (12.0-15.0); Lymphocytes # (A) 1.68 X 10*3/uL (0.90-5.00); Lymphocytes % (A) 20.5 %; MCH 29.7 pg (27.0-32.0); MCHC 31.7 d/dL (32.0-37.0); MCV 93.7 FL (80.0-97.0); Mean Platelet Volume 10.3 FL (9.5-12.2); Monocytes # (A) 0.66 X 10*3/uL (0.20-1.00); Monocytes % (A) 8.1 %; NRBC Per 100 WBC 0 X 10*3/uL (0.00-0.01); Neutrophils # (A) 5.68 X 10*3/uL (1.80-7.70); Neutrophils % (A) 69.5 %; Platelet Count 218 X 10*3/uL (140-440); RBC 4.44 X 10*6/uL (4.10-5.20); RDW 13.7 % (11.5-14.5); WBC 8.18 X 10*3/uL (4.50-10.00)
[2023-05-29 17:39] LABS: Appearance,Urine Clear (Clear); Bilirubin,Urine Negative (Negative); Blood,Urine Negative (Negative); Color,Urine Yellow (Yellow); Ketones,Urine Negative (Negative); Nitrite,Urine Negative (Negative); PH, Urine 7.5; Specific Gravity,Urine 1.007 (1.001-1.030); Urobilinogen,Urine 0.2 E.U./DL
[2023-05-29 17:49] LABS: BUN/Creat Ratio 18.75 Ratio (12.00-20.00); Calcium 9.7 mg/dL (8.7-10.3); Carbon Dioxide 27.7 mmol/L (21.6-31.8); Chloride 101 mmol/L (96-109); Glucose 116 mg/dL (70-110); Potassium 5.1 mmol/L (3.5-5.5); Sodium 139 mmol/L (135-145)
== END | disposition home or self-care (01) ==
LOC: LABPAT 09:12
PROVIDERS: ATTEND Urology
DX: Z01.812 Encounter for preprocedural laboratory examination (principal); C67.9 Malignant neoplasm of bladder, unspecified; R31.29 Other microscopic hematuria
CPT/HCPCS: 36415; 80048; 81003; 85025; 87086

== ENCOUNTER 2023-06-05 10:53 | Day surgery (SDC) | payer MEDICARE, OTHER ==
--- NOTE | 2023-06-04 17:07 | P.HPIHPCON ---
History of Present Illness H&P Date: 06/04/23 Chief Complaint: Bladder cancer, right-sided transitional cell carcinoma This is a 68-year-old female with history of high-grade T1 bladder cancer diagnosed back in November 2022 underwent transurethral resection of a bladder tumor, at that time on ureteroscopy there was also evidence of a right sided transitional cell carcinoma lesion involving the renal pelvis, she is status post laser ablation of the tumor on December 2022. She subsequently underwent BCG. Underwent a surveillance cystoscopy which showed evidence of multiple recurrences within the bladder. Discussed that given this finding the next step would be to proceed with surgical resection of a bladder tumor. Aware of the risk which includes but not limited to bleeding, infection, bladder perforation. Discussed with him we'll also do a right-sided ureteroscopy at the same time to evaluate the ureter and the renal collecting system for any residual tumors. She understood all the risk and agreed proceed Consent for Procedure: I have explained the operation/procedure to the patient, including the risks, benefits, side effects, alternative therapies (including not receiving the proposed treatment or service), the likelihood of the patient achieving his/her goals, and potential recuperation problems for the procedure/sedation/analgesia, as well as any blood products, if indicated. I also explained to the patient the risks, benefits and side effects of the alternatives, as well as the risks related to not receiving the proposed procedure, care, treatment, or services. Past Medical History Past Medical History: Asthma, Cancer, COPD, Eye Disorder, Hearing Disorder / Deafness, Osteoarthritis (OA) Additional Past Medical History / Comment(s): Glaucoma, bladder and rt kidney ca History of Any Multi-Drug Resistant Organisms: None Reported Past Surgical History: Hysterectomy, Orthopedic Surgery Additional Past Surgical History / Comment(s): tailbone removal, biopsy of kidney and tumor removal on the bladder. polyps from colon, cyst aspirated on breast, lymph nodes and nodule from rt breast, lft knee arthroscopy x2, Past Anesthesia/Blood Transfusion Reactions: Postoperative Nausea & Vomiting (PONV) Additional Past Anesthesia/Blood Transfusion Reaction / Comment(s): Severe PONV, which lead to hyponatremia after last surgery. family hx of problems with bp after anesthesia Smoking Status: Current some day smoker, Former smoker - Past Family History Sister(s) Family Medical History: Cancer Additional Family Medical History / Comment(s): Lung cancer, . Medications and Allergies Home Medications Medication Instructions Recorded Confirmed Type Acetaminophen [Tylenol Extra 500 mg PO Q6H PRN 12/11/22 05/31/23 History Strength] Brimonidine Tartrate [Alphagan P 1 drops BOTH EYES BID 12/11/22 05/31/23 History 0.2% Ophth Soln] Calcium Carbonate [Calcium] 600 mg PO DAILY 12/11/22 05/31/23 History Cholecalciferol [Vitamin D3 (25 25 mcg PO DAILY 12/11/22 05/31/23 History Mcg = 1000 Iu)] Esomeprazole Magnesium [NexIUM] 40 mg PO QAM 12/11/22 05/31/23 History Fluticasone Propion/Salmeterol 1 puff INHALATION BID 12/11/22 05/31/23 History [Advair Hfa 45-21 Mcg Inhaler] Latanoprost/Pf [Latanoprost 0.005% 1 drop BOTH EYES HS 12/11/22 05/31/23 History Eye Drop] Multivitamins, Thera [Multivitamin 1 tab PO DAILY 12/11/22 05/31/23 History (formulary)] Ondansetron [Zofran] 4 mg PO Q6H PRN 12/11/22 05/31/23 History Sodium Chloride Tab 1 gm PO TID 01/03/23 05/31/23 History Albuterol Nebulized [Ventolin 2.5 mg INHALATION BID 05/31/23 05/31/23 History Nebulized] Ventolin (Unk) 2 puff INHALATION BID PRN 05/31/23 05/31/23 History Melatonin 3 mg PO HS 06/01/23 06/01/23 History Allergies Allergy/AdvReac Type Severity Reaction Status Date / Time prednisone Allergy Rash/Hives Verified 05/31/23 08:37 propoxyphene [From Darvon] Allergy Rapid Verified 05/31/23 08:37 Heart Rate Surgical - Exam - General no distress, no pain - Eyes normal ocular movement, no pale - ENT normal nares, normal mucosa - Respiratory normal expansion, normal respiratory effort - Abdomen Abdomen: soft, non tender Assessment and Plan Assessment: OR for TURBT, right-sided ureteroscopy, possible laser ablation of tumor and stent insertion
[~2023-06-05 10:53] MED LIST changes: -MIDAZOLAM 2 MG/2 ML VIAL IV PRN
[2023-06-05] MEDS: LACTATED RINGERS 1,000 ML IV SCH (11:24)
[2023-06-05] MEDS ORDERED: LIDOCAINE 1% INJ 10MG/ML (20 ML MDV) ONE (12:39)
[2023-06-05] MEDS ORDERED: PHENYLEPHRINE-0.9% NACL SYG 1,000 MCG/10 ML SYRINGE ONE (12:39)
[2023-06-05] MEDS ORDERED: PROPOFOL 10 MG/ML 20 ML VIAL IV ONE (12:39)
[2023-06-05] MEDS ORDERED: fentaNYL (PF) 50 MCG/ML 2 ML AMP ONE (12:39)
[2023-06-05] MEDS ORDERED: MIDAZOLAM 2 MG/2 ML VIAL ONE (12:39)
[2023-06-05] MEDS ORDERED: ePHEDrine 50 MG/ML 1 ML VIAL ONE (12:39)
[2023-06-05] MEDS ORDERED: ACETAMINOPHEN TAB 500 MG TAB PO PRN (14:06)
[2023-06-05] MEDS ORDERED: ONDANSETRON 4 MG TAB PO PRN (14:06)
[2023-06-05] MEDS ORDERED: ALBUTEROL NEBULIZED 2.5 MG/3 ML INHALATION PRN (14:06)
--- NOTE | 2023-06-05 14:06 | P.OP ---
Date of Procedure: 06/05/23 Preoperative Diagnosis: Bladder cancer, right transitional cell carcinoma Postoperative Diagnosis: Same Procedure(s) Performed: Cystoscopy, TURBT(large), right retrograde pyelogram, ureteroscopy, laser ablation of a renal tumor, stent insertion Implants: 6-Macedonian by 24 cm stent left on a string and taped to the catheter Anesthesia: MAXIME Surgeon: Vinny Nova Estimated Blood Loss (ml): 25 Pathology: other (Bladder tumor, right renal cytology) Condition: stable Disposition: PACU Indications for Procedure: This is a 68-year-old female with history of high-grade T1 bladder cancer diagnosed back in November 2022 underwent transurethral resection of a bladder tumor, at that time on ureteroscopy there was also evidence of a right sided transitional cell carcinoma lesion involving the renal pelvis, she is status post laser ablation of the tumor on December 2022. She subsequently underwent BCG. Underwent a surveillance cystoscopy which showed evidence of multiple recurrences within the bladder. Discussed that given this finding the next step would be to proceed with surgical resection of a bladder tumor. Aware of the risk which includes but not limited to bleeding, infection, bladder perforation. Discussed with him we'll also do a right-sided ureteroscopy at the same time to evaluate the ureter and the renal collecting system for any residual tumors. She understood all the risk and agreed proceed Operative Findings: More than 10 papillary tumors throughout the bladder were resected. Total area of resection was greater than 8 cm. Half a centimeter tumor in the right renal pelvis that was laser ablated Description of Procedure: Patient brought to the operating room, general anesthesia was induced. She was prepped and draped in sterile fashion and placed a dorsal lithotomy position. Resectoscope fitted the 25-Macedonian sheath was inserted per urethra, cystoscopy was performed which showed greater than 10 papillary tumors in the bladder. The papillary tumors were resected down to muscle, total area of resection was 8 cm, the tumor edges was fulgurated, repeat cystoscopy showed no additional tumors, any evidence of bleeding or evidence of bladder perforation, the tumors were i rrigated out and sent to pathology. At this time attention was carried to the right ureteral orifice, a cystoscope fitted with 22-Macedonian sheath was inserted per urethra, the right ureteral orifice was intubated with an open-ended catheter, retrograde pyelogram was performed which showed no filling defect along the ureter or the collecting system. At this time a sensor wire was advanced through the catheter and the catheter was removed with the wire in place. Next a 1113 [place] access sheath was passed over the wire into the proximal ureter. Flexible ureteroscope was inserted through the access sheath, renoscopy was performed which showed a half a centimeter tumor in the renal pelvis and no additional tumors within the kidney. Renal cytology was obtained. Using the holmium laser the tumor was ablated. Repeat renoscopy showed no evidence of bleeding or any additional tumors, pullback ureteroscopy was performed which showed no tumor was along the ureter. As the ureteroscope was w ithdrawn and a sensor wire was advanced through. Next a ureteral stent was passed over the wire, the proximal curl was visualized on fluoroscopy and the distal curl was incised using cystoscope. Stent was left on a string and taped to the patient catheter. Catheter was irrigated without any difficulty. Patient tolerated procedure was taken to recovery stable condition
[2023-06-05] MEDS ORDERED: Acetaminophen-Codeine 300-30mg TAB PO PRN (14:07)
[2023-06-05] MEDS ORDERED: ONDANSETRON 4 MG/2 ML VIAL IVP ONE (14:13)
--- NOTE | 2023-06-05 14:26 | FL ---
Intraoperative/procedural fluoroscopic services were provided for right-sided cysto with mural stent placement. Total fluoroscopy time is 18 seconds with a total of 8 submitted images to PACS. Total DAP [id number] mGym2. Please see the operative note for further details.
[2023-06-05] MEDS ORDERED: droPERidol 5 MG/2 ML VIAL IVP ONE (14:34)
[2023-06-05] MEDS ORDERED: LACTATED RINGERS 1,000 ML IV ONE (14:51)
[2023-06-05] MEDS: SODIUM CHLORIDE 0.9% 1,000 ML IV SCH (15:26)
[2023-06-05] MEDS: SODIUM CHLORIDE TAB 1 GM TAB PO SCH ×2 (16:23→23:47)
[2023-06-05] MEDS ORDERED: SCOPOLAMINE 1 MG/72 HR PATCH TRANSDERM STA (17:31)
[2023-06-05] MEDS ORDERED: KETOROLAC 15 MG/ML 1 ML VIAL IVP PRN (17:31)
[2023-06-05] MEDS: BRIMONIDINE TARTRATE 0.2% DROPS 5 ML BTL BOTH EYES SCH (20:45)
[2023-06-05] MEDS ORDERED: LATANOPROST 0.005% OPHTH DROPS 2.5 ML BTL BOTH EYES SCH (21:00)
[2023-06-05] MEDS ORDERED: MELATONIN 3 MG TABLET PO SCH (21:00)
[2023-06-05] MEDS: SYMBICORT 80-4.5 MCG INHALER INHALATION SCH (22:13)
[2023-06-05] MEDS: ALBUTEROL NEBULIZED 2.5 MG/3 ML INHALATION SCH (22:13)
[2023-06-06 06:27] LABS: African American GFR (CKD) >90 (>60 ml/min/1.73 sqM); Anion Gap 4 mmol/L; Blood Urea Nitrogen 18 mg/dL (7-17); Calcium 8.4 mg/dL (8.4-10.2); Carbon Dioxide 26 mmol/L (22-30); Chloride 107 mmol/L (98-107); Glucose 82 mg/dL (74-99); Non-African American GFR(CKD) >90 (>60 ml/min/1.73 sqM); Potassium 4.3 mmol/L (3.5-5.1); Sodium 137 mmol/L (137-145)
[2023-06-06] MEDS ORDERED: PANTOPRAZOLE 40 MG TABLET PO SCH (07:30)
[2023-06-06] MEDS: ALBUTEROL NEBULIZED 2.5 MG/3 ML INHALATION SCH (07:38)
[2023-06-06] MEDS: SYMBICORT 80-4.5 MCG INHALER INHALATION SCH (07:38)
[2023-06-06 08:03] VITALS: BP 102/68; PULSE 55; RESP 17; TEMP 98
[2023-06-06] MEDS: LACTATED RINGERS 1,000 ML IV SCH (08:26)
[2023-06-06] MEDS: BRIMONIDINE TARTRATE 0.2% DROPS 5 ML BTL BOTH EYES SCH (08:48)
[2023-06-06] MEDS: SODIUM CHLORIDE TAB 1 GM TAB PO SCH (08:50)
--- NOTE | 2023-06-06 09:12 | P.DS ---
Providers Attending physician: Vinny Nova MD Primary care physician: [place] Hospital Course: This patient underwent a turbt and a ureteroscopy with laser destruction of a small right ureteral tumor by Dr nova yesterday. She had an uneventful post operative course. She will be d/cd and fu with Dr nova in the office Her condition is good Patient Condition at Discharge: Good Plan - Discharge Summary Discharge Rx Participant: No New Discharge Prescriptions: No Action Latanoprost/Pf [Latanoprost 0.005% Eye Drop] 1 drop BOTH EYES HS Esomeprazole Magnesium [NexIUM] 40 mg PO QAM Acetaminophen [Tylenol Extra Strength] 500 mg PO Q6H PRN PRN Reason: Fever And/ Or Pain Brimonidine Tartrate [Alphagan P 0.2% Ophth Soln] 1 drops BOTH EYES BID Albuterol Nebulized [Ventolin Nebulized] 2.5 mg INHALATION BID Ventolin (Unk) 2 puff INHALATION BID PRN PRN Reason: Wheezing Melatonin 3 mg PO HS Multivitamins, Thera [Multivitamin (formulary)] 1 tab PO DAILY Cholecalciferol [Vitamin D3 (25 Mcg = 1000 Iu)] 25 mcg PO DAILY Ondansetron [Zofran] 4 mg PO Q6H PRN PRN Reason: Nausea And Vomiting Fluticasone Propion/Salmeterol [Advair Hfa 45-21 Mcg Inhaler] 1 puff INHALATION BID Calcium Carbonate [Calcium] 600 mg PO DAILY Sodium Chloride Tab 1 gm PO TID Discharge Medication List Acetaminophen [Tylenol Extra Strength] 500 mg PO Q6H PRN 12/11/22 [History] Brimonidine Tartrate [Alphagan P 0.2% Ophth Soln] 1 drops BOTH EYES BID 12/11/22 [History] Calcium Carbonate [Calcium] 600 mg PO DAILY 12/11/22 [History] Cholecalciferol [Vitamin D3 (25 Mcg = 1000 Iu)] 25 mcg PO DAILY 12/11/22 [History] Esomeprazole Magnesium [NexIUM] 40 mg PO QAM 12/11/22 [History] Fluticasone Propion/Salmeterol [Advair Hfa 45-21 Mcg Inhaler] 1 puff INHALATION BID 12/11/22 [History] Latanoprost/Pf [Latanoprost 0.005% Eye Drop] 1 drop BOTH EYES HS 12/11/22 [History] Multivitamins, Thera [Multivitamin (formulary)] 1 tab PO DAILY 12/11/22 [History] Ondansetron [Zofran] 4 mg PO Q6H PRN 12/11/22 [History] Sodium Chloride Tab 1 gm PO TID 01/03/23 [History] Albuterol Nebulized [Ventolin Nebulized] 2.5 mg INHALATION BID 05/31/23 [H istory] Ventolin (Unk) 2 puff INHALATION BID PRN 05/31/23 [History] Melatonin 3 mg PO HS 06/01/23 [History] Follow up Appointment(s)/Referral(s): Vinny Nova MD [STAFF PHYSICIAN] - 1 Week Discharge Disposition: HOME SELF-CARE
[2023-06-06] MEDS: SODIUM CHLORIDE 0.9% 1,000 ML IV SCH (11:40)
== END 2023-06-06 13:35 | disposition home or self-care (01) ==
LOC: OR 10:53 → 5NMEDONC 14:08 → OR 06-06 13:35
PROVIDERS: ATTEND Urology
DX: N30.90 Cystitis, unspecified without hematuria (principal); J44.9 Chronic obstructive pulmonary disease, unspecified; M19.90 Unspecified osteoarthritis, unspecified site; Z98.890 Other specified postprocedural states; Z90.710 Acquired absence of both cervix and uterus; Z87.891 Personal history of nicotine dependence; Z80.1 Family history of malignant neoplasm of trachea, bronchus and lung; Z79.51 Long term (current) use of inhaled steroids; Z79.899 Other long term (current) drug therapy; Z88.0 Allergy status to penicillin
CPT/HCPCS: 94640 ×4; 88108; 88305; 80048; 88312; 88307; 52240; 52332; C2625; C1758; C1769; J0690; J2405; J1885; J1790

== ENCOUNTER → 2023-09-13 | Outpatient (CLI) | payer MEDICARE, OTHER ==
[2023-09-13 10:47] LABS: African American GFR (CKD) >90 (>60 ml/min/1.73 sqM); Blood Urea Nitrogen 17 mg/dL (7-17); Non-African American GFR(CKD) >90 (>60 ml/min/1.73 sqM)
--- NOTE | 2023-09-14 14:57 | CT ---
EXAMINATION TYPE: CT chest w con DATE OF EXAM: 09/13/2023 COMPARISON: 03/03/2023 PET/CT HISTORY: nodule, history of bladder CA CT DLP: 128.8 mGycm, Automated exposure control for dose reduction was used. CONTRAST: Performed injected with 100 mL of Isovue 300. TECHNIQUE: Axial images were obtained at 5 mm thick sections. Reconstructed images are reviewed on [employer] computer in the coronal plane. FINDINGS: Portion of the thyroid visualized is normal. There is a groundglass opacity measuring 2.6 cm in the posterior lateral superior segment right lower lobe. This is enlarged from 2.1 cm on the PET/CT of 03/03/2023. Tiny central nodule may be developing measuring 0.3 cm. Neoplasm cannot be excluded. This would likely be below the threshold of detectabi lity by PET CT. No enlarged mediastinal or hilar adenopathy is evident. The ascending aorta diameter at the level o f the main pulmonary artery is 3.6 cm. The main pulmonary artery diameter at the bifurcation is 2.[address] sections are obtained through the upper abdomen. There is a 2 cm cyst within the right lob e liver IMPRESSION: 1. Suspicious enlarging groundglass opacity posterolateral right lung. Tiny nodule may be developing centrally. Metastatic disease should be considered.
== END | disposition home or self-care (01) ==
LOC: RADCTMAIN 09:57
PROVIDERS: ATTEND Internal Medicine Hematology & Oncology
DX: R91.8 Other nonspecific abnormal finding of lung field (principal); C50.411 Malignant neoplasm of upper-outer quadrant of right female breast; C65.1 Malignant neoplasm of right renal pelvis; C67.9 Malignant neoplasm of bladder, unspecified; E11.9 Type 2 diabetes mellitus without complications; M12.9 Arthropathy, unspecified; M10.9 Gout, unspecified; Z71.3 Dietary counseling and surveillance
CPT/HCPCS: 82565; 84520; 71260; 36415; Q9967

== ENCOUNTER → 2023-11-06 | Outpatient (CLI) | payer MEDICARE, OTHER ==
[2023-11-06 11:35] LABS: African American GFR (CKD) >90 (>60 ml/min/1.73 sqM); Blood Urea Nitrogen 23 mg/dL (7-17); Non-African American GFR(CKD) >90 (>60 ml/min/1.73 sqM)
--- NOTE | 2023-11-12 15:54 | CT ---
EXAMINATION TYPE: CT urogram wo/w con CT DLP: 1443 mGycm, Automated exposure control for dose reduction was used. DATE OF EXAM: 11/07/2023 9:14 AM COMPARISON: . PET/CT skull to mid thigh from 03/03/2023 CLINICAL INDICATION:Female, 68 years old with history of C67.9 MALIGNANT NEOPLASM OF BLADDER, UNSPECI FIED; PHH, bladder and kidney cancer TECHNIQUE: Urogram with imaging of the abdomen and pelvis. Coronal and sagittal reformats were performed. 2D and 3D reconstructions are performed to assist visualization of the urinary tract on a separate workstat ion. Contrast used:100 mL of Isovue 300 with IV Contrast, Oral contrast used: None. FINDINGS: LOWER CHEST: No significant findings on today's exam. GENITOURINARY: RIGHT KIDNEY AND URETER: No calculi. No hydronephrosis or hydroureter. No renal mass or other lesions . No urothelial lesions: no filling defect, dilation, stricture or wall thickening. LEFT KIDNEY AND URETER: No calculi. No hydronephrosis or hydroureter. No renal mass or other lesions. No urothelial lesions: no filling defect, dilation, stricture or wall thickening. URINARY BLADDER: Unremarkable. No masses are identified. Bilateral ureteral jets are demonstrated. P hleboliths are seen in the pelvis. REPRODUCTIVE: Unremarkable. ABDOMEN LIVER: Simple liver cyst, otherwise unremarkable.. GALLBLADDER AND BILE DUCTS: Unremarkable PANCREAS: Unremarkable. SPLEEN: Unremarkable. ADRENAL GLANDS: Unremarkable. STOMACH AND BOWEL: PICC line. No evidence of bowel obstruction. PERITONEUM: No evidence of pneumoperitoneum, free fluid, or adenopathy. VASCULATURE: No evidence of aortic aneurysm. MUSCULOSKELETAL: No acute osseous abnormalities LYMPH NODES: No gross evidence for lymphadenopathy. SOFT TISSUE/ABDOMINAL WALL: Unremarkable 3-D images confirm the 2-D findings. IMPRESSION: 1. No evidence of urolithiasis or renal/urothelial neoplasm.
== END | disposition home or self-care (01) ==
LOC: RADCTMAIN 10:50
PROVIDERS: ATTEND Urology
DX: C67.9 Malignant neoplasm of bladder, unspecified (principal); C64.9 Malignant neoplasm of unspecified kidney, except renal pelvis
CPT/HCPCS: 82565; 84520; 74178; 36415; 74400; Q9967

== ENCOUNTER → 2024-01-11 | Outpatient (CLI) | payer MEDICARE, OTHER ==
[2024-01-11 12:27] LABS: African American GFR (CKD) >90 (>60 ml/min/1.73 sqM); Blood Urea Nitrogen 35 mg/dL (7-17); Non-African American GFR(CKD) >90 (>60 ml/min/1.73 sqM)
--- NOTE | 2024-01-11 13:56 | CT ---
FINDINGS: Lung bases are clear. On the pre-IV contrast images, there are no renal calcifications or ureteral calcifications. There a re no gallstones. The gallbladder is normal and there is no distention or biliary ductal dilatation. There are no focal masses within the liver, pancreas, spleen or adrenal glands and there is no organo megaly. Kidneys excrete contrast promptly and symmetrically and there is no solid renal mass. There is a sugg estion of mild chronic left-sided hydronephrosis. There is a filling defect within the posterior and medial aspect of the left renal pelvis suspicious for neoplasm possibly a transitional cell carcinoma. There are no right-sided filling defects or fill ing defects within the urinary bladder. The bowel loops are normal in caliber and there is no dilatation or obstruction. No inflammatory silverio ges are identified in the bowel wall or mesentery. There is no free intraperitoneal air or fluid. There is no pelvic mass, free fluid, abscess or adenopathy. The osseous structures are intact. IMPRESSION: Filling defect within the medial and posterior aspect of the left renal pelvis suspicious for neoplas m. Further evaluation is warranted.
== END | disposition home or self-care (01) ==
LOC: RADCTMAIN 11:57
PROVIDERS: ATTEND Urology
DX: R93.41 Abnormal radiologic findings on diagnostic imaging of renal pelvis, ureter, or bladder (principal); R31.0 Gross hematuria
CPT/HCPCS: 82565; 84520; 74178; 74400; Q9967

== ENCOUNTER → 2024-01-22 | Outpatient (CLI) | payer MEDICARE, OTHER ==
[2024-01-22 14:54] LABS: Basophils # (A) 0.06 X 10*3/uL (0.00-0.10); Basophils % (A) 0.6 %; Eosinophils # (A) 0.08 X 10*3/uL (0.04-0.35); Eosinophils % (A) 0.8 %; HCT 41.7 % (37.2-46.3); HGB 13.7 g/dL (12.0-15.0); Lymphocytes # (A) 1.66 X 10*3/uL (0.90-5.00); Lymphocytes % (A) 17.2 %; MCH 30.6 pg (27.0-32.0); MCHC 32.9 g/dL (32.0-37.0); MCV 93.3 FL (80.0-97.0); Monocytes # (A) 0.83 X 10*3/uL (0.20-1.00); Monocytes % (A) 8.6 %; NRBC Per 100 WBC 0 X 10*3/uL (0.00-0.01); Neutrophils # (A) 6.98 X 10*3/uL (1.80-7.70); Neutrophils % (A) 72.4 %; Platelet Count 218 X 10*3/uL (140-440); RBC 4.47 X 10*6/uL (4.10-5.20); RDW 14.6 % (11.5-14.5); WBC 9.65 X 10*3/uL (4.50-10.00)
[2024-01-22 15:01] LABS: BUN/Creat Ratio 36.57 Ratio (12.00-20.00); Blood Urea Nitrogen 25.6 mg/dL (9.0-27.0); Calcium 9.6 mg/dL (8.7-10.3); Carbon Dioxide 26.1 mmol/L (21.6-31.8); Chloride 100 mmol/L (96-109); Glucose 128 mg/dL (70-110); Potassium 4.6 mmol/L (3.5-5.5); Sodium 138 mmol/L (135-145)
[2024-01-22 16:46] LABS: Appearance,Urine Clear (Clear); Bilirubin,Urine Negative (Negative); Blood,Urine Negative (Negative); Color,Urine Yellow (Yellow); Ketones,Urine Negative (Negative); Nitrite,Urine Negative (Negative); PH, Urine 5.5; Specific Gravity,Urine 1.008 (1.001-1.030); Urobilinogen,Urine 0.2 E.U./DL
== END | disposition home or self-care (01) ==
LOC: LABWHC1 09:34
PROVIDERS: ATTEND Urology
DX: Z01.812 Encounter for preprocedural laboratory examination (principal); C67.9 Malignant neoplasm of bladder, unspecified
CPT/HCPCS: 36415; 80048; 81003; 85025; 87086

== ENCOUNTER 2024-01-29 10:08 | Day surgery (SDC) | payer MEDICARE, OTHER ==
[2024-01-25 14:15] VITALS: BMI 19.7
--- NOTE | 2024-01-28 08:00 | P.HPIHPCON ---
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 had recurrence in May 2023 underwent subsequent laser ablation the left side. She did develop a recurrence post BCG in the bladder, subsequently underwent repeat inducation BCG surveillance cystoscopy showed no recurrence. CT urogram showed evidence of a filling defect in the left renal pelvis. Discussed with her given this finding I do recommend proceeding with a bilateral ureteroscopy to evaluate the left and the right kidney given her previous history of right TCC. Discussed also if there is recurrence in the bladder we will proceed with TURBT. She is aware of the risk which includes but not limited to bleeding, infection, bladder perforation, injury to the ureter, cancer recurrence and the need for additional treatment. Consent for Procedure: I have explained the operation/procedure to the patient, including the risks, benefits, side effects, alternative therapies (including not receiving the proposed treatment or service), the likelihood of the patient achieving his/her goals, and potential recuperation problems for the procedure/sedation/analgesia, as well as any blood products, if indicated. I also explained to the patient the risks, benefits and side effects of the alternatives, as well as the risks related to not receiving the proposed procedure, care, treatment, or services. Past Medical History Past Medical History: Asthma, Cancer, COPD, Eye Disorder, Hearing Disorder / Deafness, Osteoarthritis (OA) Additional Past Medical History / Comment(s): Glaucoma, kidney and bladder cancer with BCG tx History of Any Multi-Drug Resistant Organisms: None Reported Past Surgical History: Hysterectomy Additional Past Surgical History / Comment(s): tailbone removal, right kidney tumor removed x1 and bladder tumor removed x2 Past Anesthesia/Blood Transfusion Reactions: No Reported Reaction Additional Past Anesthesia/Blood Transfusion Reaction / Comment(s): Severe PONV, which leads to hyponatremia Past Psychological History: Anxiety Smoking Status: Former smoker Past Alcohol Use History: None Reported Additional Past Alcohol Use History / Comment(s): Quit smoking 11/07/2022, had smoked for 50 yrs, 1-2 cigarettes daily, if that. Past Drug Use History: None Reported - Past Family History Sister(s) Family Medical History: Cancer Additional Family Medical History / Comment(s): Lung cancer, . Medications and Allergies Home Medications Medication Instructions Recorded Confirmed Type Brimonidine Tartrate [Alphagan P 1 drops BOTH EYES BID 12/11/22 01/25/24 History 0.2% Ophth Soln] Esomeprazole Magnesium [NexIUM] 40 mg PO QAM 12/11/22 01/25/24 History Fluticasone Propion/Salmeterol 2 puff INHALATION BID 12/11/22 01/25/24 History [Advair Hfa 45-21 Mcg Inhaler] Latanoprost/Pf [Latanoprost 0.005% 1 drop BOTH EYES HS 12/11/22 01/25/24 History Eye Drop] Ondansetron [Zofran] 4 mg PO Q6H PRN 12/11/22 01/25/24 History Sodium Chloride Tab 1 gm PO TID 01/03/23 01/25/24 History Ventolin (Unk) 2 puff INHALATION BID PRN 05/31/23 01/25/24 History Allergies Allergy/AdvReac Type Severity Reaction Status Date / Time prednisone Allergy Rash/Hives Verified 01/25/24 14:04 propoxyphene [From Darvon] Allergy Rapid Verified 01/25/24 14:04 Heart Rate Surgical - Exam - General no distress, no pain - Eyes normal ocular movement, no pale - ENT normal nares, normal mucosa - Respiratory normal expansion, normal respiratory effort - Abdomen Abdomen: soft, non tender Assessment and Plan Assessment: OR for cysto, bilateral ureteroscopy, possible laser ablation, possible TURBT
[2024-01-29] MEDS: IV FLUID CONTINUATION 1,000 ML IV ONE (10:45)
[2024-01-29] MEDS: LACTATED RINGERS 1,000 ML BAG IV STA (10:50)
[2024-01-29] MEDS: ONDANSETRON 4 MG/2 ML VIAL IVP STA (10:57)
[2024-01-29] MEDS: DEXAMETHASONE SOD PHOSPHATE 4 MG/ML 1 ML VIAL IVP STA (11:00)
[2024-01-29] MEDS ORDERED: WATER FOR INJECTION, STERILE 10 ML VIAL IV ONE (11:20)
[2024-01-29] MEDS ORDERED: ePHEDrine 50 MG/ML 1 ML VIAL ONE (11:20)
[2024-01-29] MEDS ORDERED: fentaNYL (PF) 50 MCG/ML 2 ML AMP ONE (11:20)
[2024-01-29] MEDS ORDERED: diphenhydrAMINE 50 MG/ML 1 ML VIAL ONE (11:20)
[2024-01-29] MEDS ORDERED: PROPOFOL 10 MG/ML 20 ML VIAL IV ONE (11:20)
[2024-01-29] MEDS ORDERED: MIDAZOLAM 2 MG/2 ML VIAL ONE (11:20)
[2024-01-29] MEDS ORDERED: LIDOCAINE 1% INJ 10MG/ML (20 ML MDV) ONE (11:20)
[2024-01-29] MEDS ORDERED: ONDANSETRON 4 MG TAB PO PRN (11:24)
[2024-01-29] MEDS: IOPAMIDOL-370 100ML BTL MISCELLANE ONE (12:32)
--- NOTE | 2024-01-29 13:23 | FL ---
Fluoroscopy INDICATION: Pain FINDINGS: Fluoroscopy time: 80.6 seconds. Total dose area product (DAP) in uGy*m?, mGy*cm? (or similar): 0.34408 Images obtained: 8. IMPRESSION: 1. Documentation of fluoroscopy.
[2024-01-29] MEDS: SODIUM CHLORIDE 0.9% 1,000 ML IV SCH (13:49)
[2024-01-29] MEDS: droPERidol 5 MG/2 ML VIAL IVP ONE (14:00)
--- NOTE | 2024-01-29 14:08 | P.OP ---
Date of Procedure: 01/29/24 Preoperative Diagnosis: Bladder cancer, bilateral transitional cell carcinoma Postoperative Diagnosis: Same Procedure(s) Performed: Cystoscopy, bilateral ureteroscopy, retrograde pyelogram, tumor laser ablation, stent insertion and vaginal mass biopsy Implants: 6 Anguillan by 24 cm stents in the bilateral ureters Anesthesia: MAXIME Surgeon: Vinny Nova Estimated Blood Loss (ml): 10 Pathology: other (Left renal pelvic mass biopsy, left renal cytology, vaginal mass) Condition: stable Disposition: PACU Indications for Procedure: This is a 69-year-old female with history of high-grade T1 bladder cancer diagnosed back in November 2022 underwent transurethral resection of a bladder tumor, at that time on ureteroscopy there was also evidence of a right sided transitional cell carcinoma lesion involving the renal pelvis, she is status post laser ablation of the tumor on December 2022. had recurrence in May 2023 underwent subsequent laser ablation the left side. She did develop a recurrence post BCG in the bladder, subsequently underwent repeat inducation BCG surveillance cystoscopy showed no recurrence. CT urogram showed evidence of a filling defect in the left renal pelvis. Discussed with her given this finding I do recommend proceeding with a bilateral ureteroscopy to evaluate the left and the right kidney given her previous history of right TCC. Discussed also if there is recurrence in the bladder we will proceed with TURBT. She is aware of the risk which includes but not limited to bleeding, infection, bladder perforation, injury to the ureter, cancer recurrence and the need for additional treatment. Operative Findings: Large mass within the left renal pelvis, measured approximately 2 cm, 2 satellite lesions in the right lower pole each measuring approximately half a centimeter along the posterior vaginal canal at the vaginal introitus papillary appearing lesion was biopsied that measured 2 cm Description of Procedure: Patient brought to the operating room, general anesthesia was induced. She was prepped and draped in sterile fashion placed in dorsolithotomy position. Cystoscopy fitted with a 21 Anguillan sheath was inserted per urethra, cystoscopy was performed showed no abnormality within the bladder, attention was then carried to the left ureteral orifice which was intubated with an open-ended catheter, retrograde pyelogram was performed which showed a filling defect in the left renal pelvis. At this time a sensor wire was advanced through the catheter and the catheter was removed with the wire in place. Next under fluoroscopy 1113 Anguillan access sheath was passed over the wire and into the proximal ureter. Next a flexible ureteroscope was inserted through the access sheath, renoscopy was performed which showed a large mass in the renal pelvis that measured 2 centimeters, this was a solitary lesion, no additional lesions were seen within the rest of the kidney.. Mass was edematous in feature with evidence of hypervascularity. Using the Piranha forceps multiple biopsies was taken of the mass, renal cytology was also obtained. At this time using the holmium laser the tumor was completely ablated. At this time a sensor wire was advanced through the ureteroscope, pullback ureteroscopy was performed which showed no evidence of any additional lesions along the course of the ureter or injury to the ureter. As ureteroscope was withdrawn a sensor wire was advanced through. Next a ureteral stent was passed over the wire, the proximal curl was visualized on fluoroscopy and the distal curl was sized using the cystoscope. Attention was then carried to the right side, this cystoscope was reinserted, the right ureteral first was in identified and intubated with an open-ended catheter, retrograde pyelogram was performed showed no filling defect along the course of the ureter or any filling defects in the renal pelvis of the calyces. At this time a sensor wire was advanced through the catheter and the catheter was removed with the wire in place. Of note the right kidney was low-lying kidney in the pelvis . At this time the flexible ureteroscope was advanced over the wire and into the kidney, renoscopy was performed which showed 2 small papillary lesion along the right lower pole of the kidney, both lesions were ablated using the holmium laser, repeat renoscopy showed no additional lesions or evidence of any other abnormality within the kidney. Pullback ureteroscopy was performed showed no injury to the ureter or any ureteral lesions, as ureteroscope was withdrawn a sensor wire was advanced through. Next ureteral stent was passed over the wire, the proximal curl was visualized on fluoroscopy and the distal curl was visualized using the cystoscope. The bladder was emptied at the end of the case. At this time it was noticed along the posterior vaginal canal at the vaginal introitus 2 cm papillary appearing lesion was seen, it was not completely consistent with transitional cell carcinoma, but did appear abnormal. In addition there was the significant vaginal atrophy which limited evaluation slightly. using the Metzenbaum scissors, a portion of the lesion was excised and sent to pathology. Area of biopsy was closed using 2-0 Vicryl in [id number] fashion. There was no evidence of bleeding at the conclusion of the biopsy. At this point the patient was awakened from anesthesia and taken to recovery in stable condition
[2024-01-29] MEDS: SODIUM CHLORIDE TAB 1 GM TAB PO SCH (18:36)
[2024-01-29] MEDS: SYMBICORT 80-4.5 MCG INHALER INHALATION SCH (19:51)
[2024-01-29] MEDS: HYDROcodone/APAP 5-325MG 1 EACH TAB PO PRN (20:41)
[2024-01-29] MEDS: BRIMONIDINE TARTRATE 0.2% DROPS 5 ML BTL BOTH EYES SCH (20:42)
[2024-01-29] MEDS: LATANOPROST 0.005% OPHTH DROPS 2.5 ML BTL BOTH EYES SCH (20:42)
[2024-01-30] MEDS: ALBUTEROL HFA INHALER INHALATION PRN (08:31)
[2024-01-30] MEDS: PANTOPRAZOLE 40 MG TABLET PO SCH (08:51)
[2024-01-30] MEDS: ACETAMINOPHEN TAB 325 MG TAB PO PRN (10:02)
[2024-01-30 10:26] LABS: BUN/Creat Ratio 23.57 Ratio (12.00-20.00); Blood Urea Nitrogen 16.5 mg/dL (9.0-27.0); Calcium 8.8 mg/dL (8.7-10.3); Chloride 102 mmol/L (96-109); Glucose 81 mg/dL (70-110); Potassium 4.3 mmol/L (3.5-5.5); Sodium 138 mmol/L (135-145)
[2024-01-30 13:37] VITALS: BP 102/65; PULSE 65; RESP 18; TEMP 97.8
--- NOTE | 2024-01-30 20:58 | P.DS ---
Providers Attending physician: Vinny Nova MD Primary care physician: [facility] Course: This is 69 yo female that underwent bilateral ureteroscopy with laser ablation, see op note dated 01/28 for surgery details. Patient was admitted to the hospital post operatively due to nausea. She did well post operatively. She was discharged home on POD #1, At time of discharge he was tolerating a diet, ambulating and pain was controlled. Patient Condition at Discharge: Good Plan - Discharge Summary Discharge Rx Participant: No New Discharge Prescriptions: New Cephalexin [Keflex] 500 mg PO Q6HR 1 Days #4 cap No Action Latanoprost/Pf [Latanoprost 0.005% Eye Drop] 1 drop BOTH EYES HS Esomeprazole Magnesium [NexIUM] 40 mg PO QAM Brimonidine Tartrate [Alphagan P 0.2% Ophth Soln] 1 drops BOTH EYES BID Ventolin (Unk) 2 puff INHALATION BID PRN PRN Reason: Wheezing Ondansetron [Zofran] 4 mg PO Q6H PRN PRN Reason: Nausea And Vomiting Fluticasone Propion/Salmeterol [Advair Hfa 45-21 Mcg Inhaler] 2 puff INHALATION BID Sodium Chloride Tab 1 gm PO TID Discharge Medication List Brimonidine Tartrate [Alphagan P 0.2% Ophth Soln] 1 drops BOTH EYES BID 12/11/22 [History] Esomeprazole Magnesium [NexIUM] 40 mg PO QAM 12/11/22 [History] Fluticasone Propion/Salmeterol [Advair Hfa 45-21 Mcg Inhaler] 2 puff INHALATION BID 12/11/22 [History] Latanoprost/Pf [Latanoprost 0.005% Eye Drop] 1 drop BOTH EYES HS 12/11/22 [History] Ondansetron [Zofran] 4 mg PO Q6H PRN 12/11/22 [History] Sodium Chloride Tab 1 gm PO TID 01/03/23 [History] Ventolin (Unk) 2 puff INHALATION BID PRN 05/31/23 [History] Cephalexin [Keflex] 500 mg PO Q6HR 1 Days #4 cap 01/30/24 [Rx] Follow up Appointment(s)/Referral(s): Vinny Nova MD [STAFF PHYSICIAN] - 02/06/24 3:20 pm Patient Instructions/Handouts: *Surgery [facility] - Cystoscopy Discharge Instructions Discharge Disposition: HOME SELF-CARE
== END 2024-01-30 14:40 | disposition home or self-care (01) ==
LOC: OR 10:08 → 6NMEDSUR 12:55 → OR 01-30 14:40
PROVIDERS: ATTEND Urology
DX: C67.9 Malignant neoplasm of bladder, unspecified (principal); C64.2 Malignant neoplasm of left kidney, except renal pelvis; D28.1 Benign neoplasm of vagina; N76.1 Subacute and chronic vaginitis; J44.9 Chronic obstructive pulmonary disease, unspecified; Z88.8 Allergy status to other drugs, medicaments and biological substances; Z79.51 Long term (current) use of inhaled steroids; Z79.899 Other long term (current) drug therapy; Z87.891 Personal history of nicotine dependence; Z88.3 Allergy status to other anti-infective agents; Z88.5 Allergy status to narcotic agent
CPT/HCPCS: 94640 ×3; 88108; 88305; 80048; 74420; 52354; 52332; 57100; C2625; C1758; C1769; J1100; J0690; J2405; Q9967; J1790

== ENCOUNTER → 2024-05-26 | Outpatient (CLI) | payer MEDICARE, OTHER ==
[2024-05-26 19:05] LABS: Basophils # (A) 0.03 X 10*3/uL (0.00-0.10); Basophils % (A) 0.5 %; Eosinophils # (A) 0.09 X 10*3/uL (0.04-0.35); Eosinophils % (A) 1.4 %; HCT 43.6 % (37.2-46.3); HGB 14.2 g/dL (12.0-15.0); Lymphocytes % (A) 17.4 %; MCH 30.9 pg (27.0-32.0); MCHC 32.6 g/dL (32.0-37.0); Mean Platelet Volume 10.4 FL (9.5-12.2); Monocytes # (A) 0.57 X 10*3/uL (0.20-1.00); NRBC Per 100 WBC 0 X 10*3/uL (0.00-0.01); Neutrophils # (A) 4.52 X 10*3/uL (1.80-7.70); Neutrophils % (A) 71.2 %; Platelet Count 216 X 10*3/uL (140-440); RBC 4.59 X 10*6/uL (4.10-5.20); RDW 14.1 % (11.5-14.5); WBC 6.34 X 10*3/uL (4.50-10.00)
[2024-05-26 19:21] LABS: BUN/Creat Ratio 37.57 Ratio (12.00-20.00); Blood Urea Nitrogen 26.3 mg/dL (9.0-27.0); Chloride 102 mmol/L (96-109); Glucose 103 mg/dL (70-110); Sodium 142 mmol/L (135-145)
[2024-05-26 19:22] LABS: Calcium 9.6 mg/dL (8.7-10.3)
[2024-05-26 20:28] LABS: Appearance,Urine Clear (Clear); Bilirubin,Urine Negative (Negative); Blood,Urine Negative (Negative); Color,Urine Yellow (Yellow); Ketones,Urine Negative (Negative); Nitrite,Urine Negative (Negative); PH, Urine 6.5; Specific Gravity,Urine 1.015 (1.001-1.030); Urobilinogen,Urine 0.2 E.U./DL
== END | disposition home or self-care (01) ==
LOC: LABPAT 12:55
PROVIDERS: ATTEND Urology
DX: Z01.812 Encounter for preprocedural laboratory examination (principal); C67.1 Malignant neoplasm of dome of bladder; C64.1 Malignant neoplasm of right kidney, except renal pelvis; C64.2 Malignant neoplasm of left kidney, except renal pelvis
CPT/HCPCS: 36415; 80048; 81003; 85025; 87086

== ENCOUNTER 2024-06-03 12:29 | Day surgery (SDC) | payer MEDICARE, OTHER ==
--- NOTE | 2024-06-03 08:33 | P.HPIHPCON ---
History of Present Illness H&P Date: 06/03/24 Chief Complaint: Bladder cancer, bilateral transitional cell carcinoma This is a 69-year-old female with history of high-grade T1 bladder cancer diagnosed back in November 2022 underwent transurethral resection of a bladder tumor, at that time on ureteroscopy there was also evidence of a right sided transitional cell carcinoma lesion involving the renal pelvis, she is status post laser ablation of the tumor on December 2022. had recurrence in May 2023 underwent subsequent laser ablation that side. She did develop a recurrence post BCG in the bladder, subsequently underwent repeat inducation BCG surveillance cystoscopy showed no recurrence, he has not had any further rec urrences within the bladder. She subsequently developed another recurrence in the kidney on the right side in January, an additional 2 cm left-sided renal pelvis tumor. She was referred to [facility] and evaluated by Dr. Trevino, patient was not interested in proceeding with bilateral nephro ureterectomy. She also was evaluated by Dr. Simsm with medical oncology, and seemed not a candidate for any chemo or immunotherapy at this time. Discussed with her at this point I recommend continued upper tract surveillance with ureteroscopy's. At this time she presents with bilateral diagnostic ureteroscopy with possible laser ablation and stent placement. Discussed we will also evaluate the bladder and if there is evidence of tumor within the bladder then we will proceed with a TURBT. She is aware of the risk which includes but not limited to bleeding, infection, bladder perforation, injury to the ureter, cancer recurrence and the need for additional treatment. Consent for Procedure: I have explained the operation/procedure to the patient, including the risks, benefits, side effects, alternative therapies (including not receiving the proposed treatment or service), the likelihood of the patient achieving his/her goals, and potential recuperation problems for the procedure/sedation/analgesia, as well as any blood products, if indicated. I also explained to the patient the risks, benefits and side effects of the alternatives, as well as the risks related to not receiving the proposed procedure, care, treatment, or services. Past Medical History Past Medical History: Asthma, Cancer, COPD, Eye Disorder, Hearing Disorder / Deafness, Osteoarthritis (OA), Renal Disease Additional Past Medical History / Comment(s): Glaucoma, bladder and kidney cancer History of Any Multi-Drug Resistant Organisms: None Reported Past Surgical History: Hysterectomy, Orthopedic Surgery Additional Past Surgical History / Comment(s): tailbone removal, biopsy of kidney and tumor removal on the bladder. lft knee arthrosopy Past Anesthesia/Blood Transfusion Reactions: Postoperative Nausea & Vomiting (PONV) Additional Past Anesthesia/Blood Transfusion Reaction / Comment(s): Severe PONV, which lead to hyponatremia after last surgery. no blood tx hx Smoking Status: Current some day smoker, Former smoker - Past Family History Sister(s) Family Medical History: Cancer Additional Family Medical History / Comment(s): Lung cancer, . Medications and Allergies Home Medications Medication Instructions Recorded Confirmed Type RX: Brimonidine Tartrate [Alphagan 1 drops BOTH EYES BID 12/11/22 05/28/24 History P 0.2% Ophth Soln] RX: Esomeprazole Magnesium [NexIUM] 40 mg PO QAM 12/11/22 05/28/24 History RX: Fluticasone Propion/Salmeterol 2 puff INHALATION BID 12/11/22 05/28/24 History [Advair Hfa 45-21 Mcg Inhaler] RX: Latanoprost/Pf [Latanoprost 1 drop BOTH EYES HS 12/11/22 05/28/24 History 0.005% Eye Drop] RX: Sodium Chloride Tab 1 gm PO TID 01/03/23 05/28/24 History Ventolin (Unk) 2 puff INHALATION BID PRN 05/31/23 05/28/24 History Calcium Vit D3 (Unk) 1 tab PO DAILY 05/28/24 05/28/24 History Calcium(Unk) 1 tab PO DAILY 05/28/24 05/28/24 History Multivitamins, Thera [Multivitamin 1 tab PO DAILY 05/28/24 05/28/24 History (formulary)] Allergies Allergy/AdvReac Type Severity Reaction Status Date / Time prednisone Allergy Rash/Hives Verified 05/28/24 14:12 propoxyphene [From Darvon] Allergy Rapid Verified 05/28/24 14:12 Heart Rate Assessment and Plan Assessment: OR for cystoscopy, bilateral ureteroscopy, possible laser ablation, with stent insertion and possible TURBT
[~2024-06-03 12:29] MED LIST changes: -ONDANSETRON 4 MG/2 ML VIAL IVP ONE; +fentaNYL (PF) 50 MCG/ML 2 ML AMP IV PRN
[2024-06-03] MEDS: IV FLUID CONTINUATION 1,000 ML IV ONE (12:47)
[2024-06-03] MEDS: DEXAMETHASONE SOD PHOSPHATE 4 MG/ML 1 ML VIAL IV ONE (13:20)
[2024-06-03] MEDS: ONDANSETRON 4 MG/2 ML VIAL IVP ONE (13:21)
[2024-06-03] MEDS: LACTATED RINGERS 1,000 ML IV SCH (13:21)
[2024-06-03] MEDS ORDERED: MIDAZOLAM 2 MG/2 ML VIAL ONE (13:59)
[2024-06-03] MEDS ORDERED: LIDOCAINE 1% INJ 10MG/ML (20 ML MDV) ONE (13:59)
[2024-06-03] MEDS ORDERED: SUCCINYLCHOLINE CHLORIDE 200 MG/10 ML VIAL IV ONE (13:59)
[2024-06-03] MEDS ORDERED: PROPOFOL 10 MG/ML 20 ML VIAL IV ONE (13:59)
[2024-06-03] MEDS ORDERED: fentaNYL (PF) 50 MCG/ML 2 ML AMP ONE (13:59)
[2024-06-03] MEDS ORDERED: ePHEDrine 50 MG/ML 1 ML VIAL ONE (13:59)
[2024-06-03] MEDS ORDERED: PHENYLEPHRINE-0.9% NACL SYG 1,000 MCG/10 ML SYRINGE ONE (13:59)
[2024-06-03] MEDS ORDERED: ALBUTEROL NEBULIZED 2.5 MG/3 ML INHALATION PRN (14:05)
[2024-06-03] MEDS ORDERED: HYDROcodone/APAP 5-325MG 1 EACH TAB PO PRN (14:05)
--- NOTE | 2024-06-03 15:16 | P.OP ---
Date of Procedure: 06/03/24 Preoperative Diagnosis: bilateral transational cell carcinoma, bladder cancer Postoperative Diagnosis: Same Procedure(s) Performed: TURBT (small), bilateral ureteroscopy with laser ablation of renal tumor Implants: none Anesthesia: MAXIME Surgeon: Vinny Nova Estimated Blood Loss (ml): 5 Pathology: other (bladder tumor) Condition: stable Disposition: PACU Indications for Procedure: This is a 69-year-old female with history of high-grade T1 bladder cancer diagnosed back in November 2022 underwent transurethral resection of a bladder tumor, at that time on ureteroscopy there was also evidence of a right sided transitional cell carcinoma lesion involving the renal pelvis, she is status post laser ablation of the tumor on December 2022. had recurrence in May 2023 underwent subsequent laser ablation that side. She did develop a recurrence post BCG in the bladder, subsequently underwent repeat inducation BCG surveillance cystoscopy showed no recurrence, he has not had any further recurrences within the bladder. She subsequently developed another recurrence in the kidney on the right side in January, an additional 2 cm left-sided renal pelvis tumor. She was referred to [facility] and evaluated by Dr. Trevino, patient was not interested in proceeding with bilateral nephro ureterectomy. She also was evaluated by Dr. Simms with medical oncology, and seemed not a candidate for any chemo or immunotherapy at this time. Discussed with her at th is point I recommend continued upper tract surveillance with ureteroscopy's. At this time she presents with bilateral diagnostic ureteroscopy with possible laser ablation and stent placement. Discussed we will also evaluate the bladder and if there is evidence of tumor within the bladder then we will proceed with a TURBT. She is aware of the risk which includes but not limited to bleeding, infection, bladder perforation, injury to the ureter, cancer recurrence and the need for additional Operative Findings: 1 cm tumor along the bladder dome, half a centimeter tumor in the right renal pelvis, half a centimeter tumor in the left upper fall Description of Procedure: Brought to the operating room, general anesthesia was induced patient was prepped and draped in sterile fashion placed in dorsolithotomy position. Ostomy for the 22 Malay sheath was inserted per urethra, cystoscopy was performed which showed a 1 cm tumor along the bladder dome, no additional abnormalities within the bladder. At this time I switched to the resectoscope. Using the bipolar resectoscope the tumor was resected down, the area of resection was thoroughly fulgurated, total area of resection was 1 cm. The tumor specimen was irrigated out and sent to pathology. There was no evidence of bladder perforation. At this point attention was carried to the left ureteral orifice which was intubated with a sensor wire, the wire was advanced under fluoroscopy into the kidney. Next a flexible ureteroscope was advanced over the wire, a complete renoscopy was performed which showed a half a centimeter papillary lesion along the left upper pole. Using the holmium laser the lesion was ablated, repeat renoscopy showed no additional tumors or any other abnor malities. Pullback ureteroscopy was performed which showed no tumors along the ureter or any injury to the ureter. This time the cystoscope was reinserted and a sensor wire was advanced through the cystoscope and up the right ureteral orifice, the wire was advanced under fluoroscopy into the kidney. Next a flexible ureteroscope was backloaded over the wire and advanced over the wire into the kidney, renoscopy was performed which showed a half a centimeter papillary tumor along the renal pelvis, using the holmium laser that lesion was ablated, repeat renoscopy showed no additional tumors or injury to the kidney or any other abnormalities within the kidney. Pullback ureteroscopy was performed showed no injury to the ureter or any ureteral tumors, there was no ureteral edema on either side thus a stent was not placed. The bladder was emptied at the end of the case. Patient tolerated procedure well and taken to recovery in stable condition
--- NOTE | 2024-06-03 15:30 | FL ---
EXAMINATION TYPE: FL guidance operating room DATE OF EXAM: 06/03/2024 3:15 PM COMPARISON: Pre Operative Images if available both CT/MRI or plain film CLINICAL INDICATION: Female, 69 years old with history of Cysto for bilateral kidney stones; TECHNIQUE: FL guidance operating room, multiple fluoroscopic images provided for procedure. Total fluoroscopy time: 22.1 seconds Total submitted images to PACS: 3 DAP: 0.6276 mGym2 Gycm2 uGym2 cGycm2 or equivalent. FINDINGS: Multiple intraoperative fluoroscopic images were taken during cystogram. No immediate intraoperative complication. Multilevel degeneration changes throughout the spine. IMPRESSION: 1. No evidence for intraoperative complication. 2. Please see the operative/procedural note for further details. [facility], , 06/03/2024 3:27 PM
[2024-06-03] MEDS: SODIUM CHLORIDE 0.9% 1,000 ML IV SCH (17:00)
[2024-06-03] MEDS: SODIUM CHLORIDE TAB 1 GM TAB PO SCH (17:45)
[2024-06-03] MEDS: SYMBICORT 80-4.5 MCG INHALER INHALATION SCH (21:12)
[2024-06-03] MEDS: HEPARIN SODIUM,PORCINE 5,000 UNIT/ML 1 ML VIAL SQ SCH (21:28)
[2024-06-03] MEDS: LATANOPROST 0.005% OPHTH DROPS 2.5 ML BTL BOTH EYES SCH (21:49)
[2024-06-03] MEDS: BRIMONIDINE TARTRATE 0.2% DROPS 5 ML BTL BOTH EYES SCH (21:49)
[2024-06-03] MEDS: ACETAMINOPHEN TAB 325 MG TAB PO PRN (21:49)
[2024-06-04 02:36] VITALS: RESP 18
[2024-06-04] MEDS: PANTOPRAZOLE 40 MG TABLET PO SCH (06:41)
[2024-06-04] MEDS: MULTIVITAMINS, THERA 1 EACH TAB PO SCH (08:33)
[2024-06-04 08:37] VITALS: BP 131/84; PULSE 72; TEMP 98
[2024-06-04 08:48] LABS: Blood Urea Nitrogen 16.8 mg/dL (9.0-27.0); Calcium 8.3 mg/dL (8.7-10.3); Chloride 106 mmol/L (96-109); Glucose 100 mg/dL (70-110); Potassium 4.3 mmol/L (3.5-5.5); Sodium 140 mmol/L (135-145)
== END 2024-06-04 12:37 | disposition home or self-care (01) ==
LOC: OR 12:29 → 4SSUR 16:29 → OR 06-04 12:37
PROVIDERS: ATTEND Urology
CPT/HCPCS: 80048; 88305; 94640

== ENCOUNTER 2024-07-03 12:59 | Day surgery (SDC) | payer MEDICARE, OTHER ==
[~2024-07-03 12:59] MED LIST changes: +LACTATED RINGERS 1,000 ML IV SCH; +MIDAZOLAM 2 MG/2 ML VIAL IV PRN; -fentaNYL (PF) 50 MCG/ML 2 ML AMP IV PRN; +fentaNYL (PF) 50 MCG/ML 2 ML AMP IVP PRN
--- NOTE | 2024-07-03 13:43 | CT ---
EXAMINATION TYPE: CT Chest wo ION protocol DATE OF EXAM: 07/03/2024 COMPARISON: CT chest 09/13/2023, PET/CT 05/05/2024, 03/03/2023 CLINICAL INDICATION: Female, 69 years old with history of ion robot bronchoscopy; [facility], Ion bronchosco py TECHNIQUE: CT scan of the thorax is performed without IV contrast. CT DLP: 183.70 mGycm Automated exposure control for dose reduction was used. FINDINGS: LUNGS: No pleural effusion or pneumothorax. Stable linear scarring within the left lower lobe. Minima l centrilobular emphysematous changes. Minimal linear atelectasis within the medial aspect of the rig ht middle lobe. Minimal linear atelectasis within the right lower lobe. Similar size but more solid a ppearing spiculated nodular density within the peripheral right lower lobe measuring up to 1.7 cm (se gonzález 4, image 135). Demonstrated some mild FDG activity in prior PET/CT. The tracheobronchial tree is patent. MEDIASTINUM: Lack of IV contrast is noted to limit evaluation for mediastinal and especially hilar ad enopathy. There are no definitive greater than 1 cm hilar or mediastinal lymph nodes. No cardiomega ly. Trace pericardial effusion. Mild atherosclerotic calcification of the aorta and its branches. OTHER: Stable hepatic 2.3 cm cyst. Mild multilevel degenerative disc disease. No aggressive osseous l esion. IMPRESSION: Stable size but more solid-appearing peripheral right lower lobe 1.7 cm nodular spiculated density co ncerning for primary malignancy versus less likely infectious/inflammatory process. [facility], , 07/03/2024 1:41 PM
[2024-07-03] MEDS: IV FLUID CONTINUATION 1,000 ML IV ONE ×3 (14:04→16:58)
[2024-07-03] MEDS: LACTATED RINGERS 1,000 ML IV SCH (14:28)
[2024-07-03] MEDS: ONDANSETRON 4 MG/2 ML VIAL IVP ONE (14:28)
[2024-07-03] MEDS ORDERED: SUCCINYLCHOLINE CHLORIDE 200 MG/10 ML VIAL IV ONE (14:42)
[2024-07-03] MEDS ORDERED: GLYCOPYRROLATE 0.2 MG/ML 2 ML VIAL ONE (14:42)
[2024-07-03] MEDS ORDERED: ePHEDrine 50 MG/ML 1 ML VIAL ONE (14:42)
[2024-07-03] MEDS ORDERED: ROCURONIUM 10 MG/ML (5 ML VIAL) IV ONE (14:42)
[2024-07-03] MEDS ORDERED: PROPOFOL 10 MG/ML 20 ML VIAL IV ONE (14:42)
[2024-07-03] MEDS ORDERED: diphenhydrAMINE 50 MG/ML 1 ML VIAL ONE (14:42)
[2024-07-03] MEDS ORDERED: NEOSTIGMINE 1 MG/ML 10 ML VIAL ONE (14:42)
[2024-07-03] MEDS ORDERED: LIDOCAINE 1% INJ 10MG/ML (20 ML MDV) ONE (14:42)
[2024-07-03] MEDS ORDERED: MIDAZOLAM 2 MG/2 ML VIAL ONE (14:42)
[2024-07-03] MEDS ORDERED: LIDOCAINE 4% LTA KIT (4 ML) TOPICAL ONE (14:42)
[2024-07-03] MEDS ORDERED: PHENYLEPHRINE 10 MG/ML VIAL ONE (14:42)
--- NOTE | 2024-07-03 15:56 | P.PCN ---
Date of Procedure: 07/03/24 Operative Findings: Date of Procedure: 07/03/24 Operative Findings: Preoperative Diagnosis: Right lower lobe pulmonary nodule Postoperative Diagnosis: Right lower lobe pulmonary nodule Normal endobronchial ultrasound Procedure(s) Performed: Flexible bronchoscopy Robotic-assisted bronchoscopy and addition to radial ultrasound evaluation of the right lower lobe pulmonary nodule Robotic-assisted transbronchial needle aspirate, transbronchial biopsies of the right lower lobe pulmonary nodule in addition to a bronchioloalveolar lavage Endobronchial ultrasound Dr. Watt Anesthesia: MAXIME Surgeon: Brianda Bassett Estimated Blood Loss (ml): 0 Pathology: other Condition: stable Disposition: same day Operative Findings: A physical exam was performed. Informed consent was obtained from the patient after explaining all the risks (pneumothorax, life threatening bleeding, infection and adverse effects due to medications), benefits and alternatives to the procedure which the patient appeared to understand and so stated. The patient was connected to the monitoring devices. General anesthesia was induced and the patient was intubated by anesthesia. A final timeout was performed and the procedure confirmed by the attending staff bronchoscopist. The bronchoscope was inserted and the airway examined. The flexible bronchoscope was removed and the robotic bronchoscope was inserted. Registration was completed. I next guided the robotic bronchoscope using the navigation system into the right lower lobe superior segment. Once in proper position, the bronchoscope was frozen. The radial EBUS probe was placed through the bronchoscope and confirmed abnormal u/s images vs normal lung. A needle was placed through the working channel and under fluoroscopic guidance. This point, the position of the catheter and the needle was confirmed using pounding technology. The needle was confirmed to be within the opacity using to the and 3D imaging. We sampled the area thought to have the mass twice. We then used a cloud biopsy pattern with ultrasound confirmation for 2 additional passes with the needle. Rapid onsite evaluation of the samples were done and abnormal cells identified. With regular ultrasound and within a week and a U/S evaluation was then used to reconfirm location. Forceps were next introduced through working channel and extended the appropriate distance and 3 transbronchial biopsies were performed using fluoroscopic guidance. The u/s probe was then reinserted to confirm location. When confirmed this process was repeated for a total of 8 transbronchial biopsies. After reassessment with EBUS, a brush was placed through the extendable working channel for 1 pass with fluoroscopic guidance. U/S evaluation was then used to confirm location. 40ml of saline was then instilled into the area of the lesion. The robotic bronchoscope was removed and the airway inspected with a flexible bronchoscope and 10 ml of effluent from the BAL was collected. The aspirate was bloody and ultimately declotted and based on that, the sample was discarded. The robot was disconnected and endobronchial ultrasound was inserted. A careful evaluation of the mediastinal stations was done and there was no pathologic mphadenopathy identified. As such, no biopsies were obtained from the mediastinal lymph nodes/stations. Endobronchial ultrasound was removed. Flex. bronchoscope was inserted and regular suctioning was done. At the completion of the procedure, no residual secretions or bloody material within the airway. The bronchoscope was removed. The patient was extubated. FINDINGS: 1.The airways appeared normal 2 Successful navigation, ultrasonographic identification, and biopsies of right lower lobe pulmonary nodule 3.The the radial ultrasound view was Concentric 4 [facility] Beam imaging was used to confirm catheter and needle placement 5 endobronchial ultrasound was within normal limits. RECOMMENDATIONS: Await pathology and cytology results The referring physician will be alerted to the results when available. The patient was advised to follow up with the referring physician with the biopsy results Patient will be called with results.
[2024-07-03 16:12] VITALS: TEMP 96.9
[2024-07-03 16:28] VITALS: RESP 16
--- NOTE | 2024-07-03 16:41 | FL ---
EXAMINATION TYPE: FL bronchoscopy DATE OF EXAM: 07/03/2024 4:09 PM COMPARISON: Pre Operative Images if available both CT/MRI or plain film CLINICAL INDICATION: Female, 69 years old with history of ABNORMAL LUNG FINDINGS; TECHNIQUE: FL bronchoscopy, multiple fluoroscopic images provided for procedure. Total fluoroscopy time: 2min 13 seconds Total submitted images to PACS: 6 DAP: 2.6618 mGym2 Gycm2 uGym2 cGycm2 or equivalent. FINDINGS: ION bronchoscopy images demonstrate bronchoscope terminating in the lung. No immediate complications identified, no pneumothorax identified. IMPRESSION: 1. No evidence for intraoperative complication. 2. Please see the operative/procedural note for further details. [facility], , 07/03/2024 4:39 PM
--- NOTE | 2024-07-03 16:59 | XR ---
EXAMINATION TYPE: XR chest 1V DATE OF EXAM: 07/03/2024 4:36 PM COMPARISON: Chest radiographs from 06/03/2015 CLINICAL INDICATION: Female, 69 years old with history of post bx; [facility] TECHNIQUE: XR chest 1V Frontal view of the chest. FINDINGS: Lungs/Pleura: There is flattening of the diaphragm with increased lucency of the lungs. No evidence o f pneumothorax, pleural effusion or focal consolidation. Pulmonary vascularity: Unremarkable. Heart/mediastinum: Cardiomediastinal silhouette is unremarkable. Musculoskeletal: No acute osseous pathology. Other findings: None Lines/Tubes: IMPRESSION: 1. No acute cardiopulmonary disease process. 2. COPD changes. [facility], , 07/03/2024 4:56 PM
[2024-07-03 17:34] VITALS: BP 125/74; PULSE 74
== END 2024-07-03 17:39 | disposition home or self-care (01) ==
LOC: ORWHC2ENDO 12:59
PROVIDERS: ATTEND Internal Medicine Critical Care Medicine
DX: R91.1 Solitary pulmonary nodule (principal); J44.89 Other specified chronic obstructive pulmonary disease; J45.40 Moderate persistent asthma, uncomplicated; K21.9 Gastro-esophageal reflux disease without esophagitis; Z79.899 Other long term (current) drug therapy; Z87.891 Personal history of nicotine dependence; Z85.51 Personal history of malignant neoplasm of bladder; Z88.5 Allergy status to narcotic agent; Z88.8 Allergy status to other drugs, medicaments and biological substances
CPT/HCPCS: 87070; 87205; 87116; 87102; 87206; 71045; 71250; 31628; 31629; 31623; 31624; J2250; J0330; J1200; J2710; J2405; J2003; J2704; J2371; J1596; S2900; 88108; 88173; 88305; 88341; 88342

== ENCOUNTER → 2024-07-29 | Outpatient (CLI) | payer MEDICARE, OTHER ==
[2024-07-29 08:30] LABS: Basophils # (A) 0.1 k/uL (0-0.2); Basophils % (A) 1 %; Eosinophils # (A) 0.1 k/uL (0-0.7); Eosinophils % (A) 1 %; HCT 43.5 % (34.0-46.0); Lymphocytes # (A) 1.4 k/uL (1.0-4.8); Lymphocytes % (A) 16 %; MCH 30.3 pg (25.0-35.0); MCHC 32.1 g/dL (31.0-37.0); MCV 94.3 fL (80.0-100.0); Mean Platelet Volume 7.3; Monocytes # (A) 0.6 k/uL (0-1.0); Monocytes % (A) 6 %; Neutrophils # (A) 6.6 k/uL (1.3-7.7); Neutrophils % (A) 74 %; Platelet Count 268 k/uL (150-450); RBC 4.61 m/uL (3.80-5.40); RDW 13.1 % (11.5-15.5); WBC 8.9 k/uL (3.8-10.6)
[2024-07-29 08:43] LABS: Partial Thromboplastin Time 24.4 sec (22.0-30.0); Prothrombin Time 10.8 sec (10.0-12.5)
[2024-07-29 08:47] LABS: African American GFR (CKD) >90 (>60 ml/min/1.73 sqM); Anion Gap 9 mmol/L; Blood Urea Nitrogen 26 mg/dL (7-17); Carbon Dioxide 30 mmol/L (22-30); Chloride 97 mmol/L (98-107); Glucose 104 mg/dL (74-99); Non-African American GFR(CKD) >90 (>60 ml/min/1.73 sqM); Potassium 4.9 mmol/L (3.5-5.1); Sodium 136 mmol/L (137-145)
[2024-07-29 09:14] LABS: Appearance,Urine Clear (Clear); Bilirubin,Urine Negative (Negative); Blood,Urine Negative (Negative); Color,Urine Colorless; Glucose,Urine (UA) Negative (Negative); Ketones,Urine Negative (Negative); Leukocyte Esterase,Urine Small (Negative); Mucus,Urine Rare /hpf; Nitrite,Urine Negative (Negative); Protein,Urine Negative (Negative); RBC,Urine 4 /hpf (0-5); Specific Gravity,Urine 1.007 (1.001-1.035); Urobilinogen,Urine <2.0 mg/dL (<2.0); WBC,Urine 24 /hpf (0-5)
== END | disposition home or self-care (01) ==
LOC: LAB 07:50
PROVIDERS: ATTEND Thoracic Surgery (Cardiothoracic Vascular Surgery)
DX: Z01.812 Encounter for preprocedural laboratory examination (principal); C34.31 Malignant neoplasm of lower lobe, right bronchus or lung; E86.0 Dehydration; R58 Hemorrhage, not elsewhere classified; Z79.899 Other long term (current) drug therapy
CPT/HCPCS: 36415; 80051; 81001; 82565; 82947; 84520; 85025; 85610; 85730; 86850; 86900; 86901; 87086

== ENCOUNTER 2024-08-07 09:14 | Inpatient (IN) | payer MEDICARE, OTHER ==
[~2024-08-07 09:14] MED LIST changes: -HYDROmorphone 0.5 MG/0.5 ML SYRINGE IVP PRN; -LACTATED RINGERS 1,000 ML IV SCH; -MIDAZOLAM 2 MG/2 ML VIAL IV PRN; +ONDANSETRON 4 MG/2 ML VIAL IVP PRN; -fentaNYL (PF) 50 MCG/ML 2 ML AMP IVP PRN
[2024-08-07] MEDS: MIDAZOLAM 2 MG/2 ML VIAL IVP ONE (10:06)
[2024-08-07] MEDS: IV FLUID CONTINUATION 1,000 ML IV ONE (10:20)
[2024-08-07] MEDS: LACTATED RINGERS 1,000 ML IV SCH (10:20)
[2024-08-07] MEDS: ONDANSETRON 4 MG/2 ML VIAL IVP ONE (10:22)
[2024-08-07] MEDS: fentaNYL (PF) 50 MCG/ML 2 ML AMP IVP ONE (10:54)
[2024-08-07] MEDS ORDERED: ROPIVACAINE 5 MG/ML 30 ML VIAL ONE (11:54)
[2024-08-07] MEDS ORDERED: PROPOFOL 10 MG/ML 20 ML VIAL IV ONE (11:54)
[2024-08-07] MEDS ORDERED: ROCURONIUM 10 MG/ML (5 ML VIAL) IV ONE (11:54)
[2024-08-07] MEDS ORDERED: WATER FOR INJECTION, STERILE 10 ML VIAL IV ONE (11:54)
[2024-08-07] MEDS ORDERED: MIDAZOLAM 2 MG/2 ML VIAL ONE (11:54)
[2024-08-07] MEDS ORDERED: GLYCOPYRROLATE 0.2 MG/ML 2 ML VIAL ONE (11:54)
[2024-08-07] MEDS ORDERED: LIDOCAINE 1% INJ 10MG/ML (20 ML MDV) ONE (11:54)
[2024-08-07] MEDS ORDERED: HYDROmorphone (PF) 1 MG/ML ONE (11:54)
[2024-08-07] MEDS ORDERED: SUCCINYLCHOLINE CHLORIDE 200 MG/10 ML VIAL IV ONE (11:54)
[2024-08-07] MEDS ORDERED: PHENYLEPHRINE-0.9% NACL SYG 1,000 MCG/10 ML SYRINGE ONE (11:54)
[2024-08-07] MEDS ORDERED: KETAMINE HCL IN 0.9 % NACL 50 MG/5 ML SYRINGE ONE (11:54)
[2024-08-07] MEDS ORDERED: fentaNYL (PF) 50 MCG/ML 2 ML AMP ONE (11:54)
[2024-08-07] MEDS ORDERED: SODIUM CHLORIDE 0.9% (PF) 10 ML VIAL ONE (11:54)
[2024-08-07] MEDS ORDERED: NEOSTIGMINE 1 MG/ML 10 ML VIAL ONE (11:54)
[2024-08-07] MEDS ORDERED: ePHEDrine 50 MG/ML 1 ML VIAL ONE (11:54)
[2024-08-07] MEDS: BUPIVACAINE (PF) 0.5% 30 ML VIAL SQ ONE ×2 (12:28→14:15)
[2024-08-07] MEDS: LACTATED RINGERS 1,000 ML IV ONE (13:48)
--- NOTE | 2024-08-07 15:09 | XR ---
EXAMINATION TYPE: XR chest 1V portable DATE OF EXAM: 08/07/2024 2:49 PM COMPARISON: 07/03/2024 CLINICAL INDICATION: Female, 69 years old with history of post right lower lobectomy, , FINDINGS: Heart mildly enlarged. Apically directed right-sided chest tube in place. No appreciable pneumothorax . There is blunting of the right costophrenic angle suggesting trace effusion. Patchy opacity noted a t the left lower lung. Atherosclerotic arch calcifications. IMPRESSION: 1. Right-sided chest tube. No appreciable pneumothorax. Trace right pleural effusion. 2. Some patchy atelectasis versus early infiltrate at the left base. [facility], , 08/07/2024 3:07 PM
--- NOTE | 2024-08-07 15:18 | P.CNPUL ---
History of Present Illness Consult date: 08/07/24 Requesting physician: Christ Murrell Reason for consult: other (Postoperative pulmonary management) Chief complaint: Pulmonary adenocarcinoma History of present illness: This is a pleasant 69-year-old female with a known history of smoking, chronic obstructive pulmonary disease, bladder cancer with metastasis to the kidney and was receiving BCG irrigations of the bladder. A screening CT scan of the chest revealed evidence of a 1.5 cm spiculated lesion in the right upper lobe. This was PET scan positive. She had undergone biopsies that was proven pulmonary adenocarcinoma. She was brought in today electively for a robotic assisted thoracoscopic right lower lobectomy. She is seen today in consultation in the recovery room. She is arousable. She is maintaining good O2 saturations in the 90s on a nonrebreather mask. Right sided chest tube is in place. Positive leak. He is afebrile. Hemodynamically stable. She will be educated regarding the use of the incentive spirometer. X-ray reveals a right sided chest tube in place. No significant pneumothorax noted. She has lactated Ringer's at 20 mL/h. Dilaudid for pain control. Zofran for nausea. Review of Systems REVIEW OF SYSTEMS: CONSTITUTIONAL: Denies any recent significant weight loss or weight gain. EYES: Denies change in vision. EARS, NOSE, MOUTH, THROAT: Denies headaches, denies sore throat. CARDIOVASCULAR: Positive for surgical site right sided chest pain, no palpitations or syncopal episodes. RESPIRATORY: Denies shortness of breath, cough, congestion or hemoptysis. GASTROINTESTINAL: Denies change in appetite, denies abdominal pain GENITOURINARY: Denies hematuria, denies infections. MUSKULOSKELETAL: Denies pain, denies swelling. INTEGUMENTARY: Denies rash, denies eczema. NEUROLOGICAL: Denies recent memory loss, no recent seizure activity. PSYCHIATRIC: Denies anxiety, denies depression. HEMATOLOGIC/LYMPHATIC: Denies anemia, denies enlarged lymph nodes. Past Medical History Past Medical History: Asthma, Cancer, COPD, Eye Disorder, GERD/Reflux, Hearing Disorder / Deafness, Osteoarthritis (OA), Renal Disease Additional Past Medical History / Comment(s): Glaucoma, bladder and kidney cancer. sodium issues- maintaining normal levels (Takes supplement). pt states kidneys are functioning well. long standing spot on rll. - had more uptake with last pet scan History of Any Multi-Drug Resistant Organisms: None Reported Past Surgical History: Hysterectomy, Orthopedic Surgery Additional Past Surgical History / Comment(s): tailbone removal, biopsy of kidney and tumor removal on the bladder. lft knee arthrosopy, TURBT, BIILATERAL URETEROSCOPY W/ LASER ABLATION OF RENAL TUMOR Past Anesthesia/Blood Transfusion Reactions: Postoperative Nausea & Vomiting (PONV) Additional Past Anesthesia/Blood Transfusion Reaction / Comment(s): Severe PONV, which lead to hyponatremia after last surgery. basically just nausea not alot of vomiting. lack of appetite. no blood tx hx Past Psychological History: Anxiety Smoking Status: Former smoker Past Alcohol Use History: None Reported Additional Past Alcohol Use History / Comment(s): Quit smoking 11/07/2022, had smoked for 50 yrs, 1-2 cigarettes daily, . Past Drug Use History: None Reported - Past Family History Sister(s) Family Medical History: Cancer Additional Family Medical History / Comment(s): Lung cancer, . Father Family Medical History: Coronary Artery Disease (CAD), Diabetes Mellitus Mother Family Medical History: Diabetes Mellitus, Thyroid Disorder Medications and Allergies Home Medications Medication Instructions Recorded Confirmed Type Brimonidine Tartrate [Alphagan P 1 drops BOTH EYES BID 12/11/22 08/07/24 History 0.2% Ophth Soln] Esomeprazole Magnesium [NexIUM] 40 mg PO QAM 12/11/22 08/07/24 History Fluticasone Propion/Salmeterol 2 puff INHALATION BID 12/11/22 08/07/24 History [Advair Hfa 45-21 Mcg Inhaler] Latanoprost/Pf [Latanoprost 0.005% 1 drop BOTH EYES HS 12/11/22 08/07/24 History Eye Drop] Sodium Chloride Tab 1 gm PO TID 01/03/23 08/07/24 History Calcium Carbonate/Vitamin D3 1 each PO BID 05/28/24 08/07/24 History [Calcium 600-Vit D3 10 mcg (400 Iu)] Multivitamins, Thera [Multivitamin 1 tab PO DAILY 05/28/24 08/07/24 History (formulary)] Acetaminophen [Tylenol Extra 500 - 1,000 mg PO Q6H PRN 08/01/24 08/07/24 History Strength] Albuterol Inhaler [Ventolin Hfa 1 - 2 puff INHALATION Q6H PRN 08/01/24 08/07/24 History Inhaler] Albuterol Nebulized [Ventolin 2.5 mg INHALATION Q6H PRN 08/01/24 08/07/24 History Nebulized] Bacillus Calmette-Gurin (Bcg) 1 dose INTRAVESIC DIRECTED 08/01/24 08/07/24 History Denosumab [Prolia] 60 mg SQ Q180D 08/01/24 08/07/24 History Ciprofloxacin HCl [Cipro] 250 mg PO Q12HR 08/04/24 08/07/24 History Melatonin 4 - 5 mg PO HS 08/04/24 08/07/24 History polyethylene glycoL 3350 [Miralax] 17 gm PO DAILY PRN 08/05/24 08/07/24 History Allergies Allergy/AdvReac Type Severity Reaction Status Date / Time prednisone Allergy severe Verified 08/07/24 09:45 Rash/Hives,irregular heart rate,anxiety propoxyphene [From Darvon] Allergy severe Verified 08/07/24 09:45 body rash Physical Exam Vitals: Vital Signs Temp Pulse Resp BP Pulse Ox 08/07/24 11:00 84 14 130/77 97 08/07/24 09:50 98 F 103 H 14 138/88 94 L Intake and Output 08/07/24 08/07/24 08/07/24 06:59 14:59 22:59 Intake Total 2150 Output Total 225 Balance 1925 Intake: IV 2150 Output: Urine 200 Estimated Blood Loss 25 Other: Weight 51.6 kg GENERAL EXAM: Arousable, 69-year-old female, on a nonrebreather mask, in no apparent distress. HEAD: Normocephalic. EYES: Normal reaction of pupils, equal size. NOSE: Clear with pink turbinates. THROAT: No erythema or exudates. NECK: No masses, no JVD. CHEST: No chest wall deformity. Right sided chest tube secured in place to Pleur-evac, positive leak LUNGS: Equal air entry with no crackles, wheeze, rhonchi or dullness. CVS: S1 and S2 normal with no audible murmur, regular rhythm. ABDOMEN: No hepatosplenomegaly, normal bowel sounds, no guarding or rigidity. SPINE: No scoliosis or deformity SKIN: No rashes CENTRAL NERVOUS SYSTEM: No focal deficits, tone is normal in all 4 extremities. EXTREMITIES: There is no peripheral edema. No clubbing, no cyanosis. Peripheral pulses are intact. Results - Diagnostic Findings Chest x-ray: image reviewed Assessment and Plan Assessment: PET positive pulmonary adenocarcinoma of the right lower lobe. Status post robotic assisted right lower lobectomy. 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 Status post transurethral resection of the bladder tumor Chronic tobacco dependence Plan: The patient was seen and evaluated Chest x-ray, labs and medications reviewed Titrate down the FiO2 as tolerated Right sided chest tube with positive leak To be placed on wall suction Assure hourly use of the incentive spirometer Increase her activity as tolerated We will continue to follow and make further recommendations based on her clinical status I have personally seen and examined the patient, performed the documentation and the assessment and plan as written. Number of minutes spent on the visit: 20 Dictation was produced using [employer] dictation software. Please excuse any grammatical, word or spelling errors.
--- NOTE | 2024-08-07 15:23 | P.OP ---
Date of Procedure: 08/07/24 Preoperative Diagnosis: Lung cancer right lower lobe Postoperative Diagnosis: Same Procedure(s) Performed: Robotic assisted thoracoscopic right lower lobectomy with mediastinal lymph node dissection Anesthesia: MAXIME Surgeon: Christ Murrell Pump Oiler #1: Phil Driscoll Estimated Blood Loss (ml): 25 IV fluids (ml): 1,800 Urine output (ml): 250 Pathology: other (Right upper lobe, lymph node stations L4, L9, L8, level 7, L10, L11) Condition: stable Disposition: PACU Indications for Procedure: 69-year-old female with right lower lobe mass consistent with carcinoma Operative Findings: Peripheral mass in the superior segment of the right lower lobe puckering the overlying pleura. Lymph nodes grossly anthracotic. Fissures incomplete Description of Procedure: Patient was brought to the operating room and placed supine on the table. General anesthesia was induced. She was intubated with a double-lumen endotracheal tube. This was positioned with fiberoptic bronchoscopy. No endobronchial lesions were noted. Patient was turned in the left lateral decubitus position. The right chest was sterilely prepped and draped. Initial incision was made in the posterior axillary line over the 10th interspace. 8 mm port was placed and the video thoracoscope was placed. After assuring placement in the pleural space CO2 insufflation was begun. 2 12 mm ports were placed in the same interspace 1 anterior 1 posterior. A second 8 mm port was placed posteriorly in the sixth interspace. Working port was placed anteriorly at the level of the diaphragm. The robot was docked. Fissures were incomplete. We were able to develop the greater fissure down to the level of the pulmonary artery and identify the superior segmental branch of the pulmonary artery as well as the basilar branch of the pulmonary artery both of these were dissected out and ligated and divided with robotic vascular stapler loads. The inferior pulmonary ligament was taken down. Dissection was carried superiorly to the azygos vein. We encircled the inferior pulmonary vein and ligated and divided it with a robotic vascular stapler. Dissection was carried superiorly and the R9, R8 and level 7 lymph nodes were all dissected out, collected and sent for permanent section. Dissection was carried onto the bronchus intermedius and the takeoff of the upper lobe bronchus was identified. Intrabronchial lymph node at this level was resected and sent as R11 lymph node. Dissection was now carried distally along the bronchus intermedius and the takeoff of the middle lobe b ranch was clearly identified. Lymph nodes were resected from this region and sent as R11 lymph nodes. The right lower lobe bronchus was encircled. It was ligated and divided with a green robotic stapler being careful to not interfere with the air supply to the middle lobe bronchus. Fissure between the lower lobe and middle lobe was taken with a single firing of a blue 30 mm robotic stapler. The fissure between the lower lobe and the upper lobe required 2 firings of the same staple load. The lobectomy specimen was now completely freed. It was placed in an Endo Catch bag and retracted inferiorly in the pleural space. Hilum was checked and noted to be hemostatic with no residual adenopathy. Dissection was carried out superiorly at the level of the azygos vein and the R10 lymph nodes were dissected and sent for permanent section. We now open the paratracheal region superior to the azygos vein and discovered very limited adenopathy but resected and sent it as R4 lymph node. Robot was now undocked. Working ports incision was enlarged and the specimen was removed in an Endo Catch bag. It was sent for permanent section. Lung was inflated under direct visualization with water overlying the hilum and minimal air leak was noted from the fissures. There was no leak from the bronchial stump. Chest was irrigated out and then suctioned free. A 28 Kyrgyz chest tube was placed through separate stab incision and positioned posterior apically. It was secured with 0 Ethibond suture. Lung was again inflated under thoracoscopic visualization and then the thoracoscope was removed. The incisions were closed with layers of Vicryl suture. The patient was turned supine extubated and transferred to recovery in stable condition.
[2024-08-07] MEDS: HYDROmorphone 0.5 MG/0.5 ML SYRINGE IVP PRN (15:26)
[2024-08-07] MEDS ORDERED: hydrALAZINE HCL 20 MG/ML 1 ML VIAL IVP PRN (15:42)
[2024-08-07 17:18] LABS: Glucose,Whole Blood 128 mg/dL (70-110)
[2024-08-07] MEDS ORDERED: bisacodyL 10 MG SUPP RECTAL PRN (17:22)
[2024-08-07] MEDS ORDERED: IPRATROPIUM-ALBUTEROL 3 ML NEB IH PRN (17:22)
[2024-08-07] MEDS: DEXTROSE 5%-0.45% NACL 1,000 ML IV SCH (17:41)
[2024-08-07] MEDS: HEPARIN SODIUM,PORCINE 5,000 UNIT/ML 1 ML VIAL SQ SCH (18:01)
[2024-08-07] MEDS: KETOROLAC 15 MG/ML 1 ML VIAL IVP SCH (18:06)
[2024-08-07] MEDS: ONDANSETRON 4 MG/2 ML VIAL IVP PRN (19:37)
[2024-08-07] MEDS: IPRATROPIUM-ALBUTEROL 3 ML NEB IH SCH (20:00)
[2024-08-07] MEDS: SODIUM CHLORIDE TAB 1 GM TAB PO SCH (20:05)
[2024-08-07] MEDS: MELATONIN 5 MG TABLET PO SCH (20:12)
[2024-08-07] MEDS: CALCIUM CARB-VIT D 500 MG-5 MCG TAB PO SCH (20:12)
[2024-08-07] MEDS: LATANOPROST 0.005% OPHTH DROPS 2.5 ML BTL BOTH EYES SCH (20:13)
[2024-08-07] MEDS: BRIMONIDINE TARTRATE 0.2% DROPS 5 ML BTL BOTH EYES SCH (20:13)
--- NOTE | 2024-08-07 21:08 | P.ANPRN ---
Procedure Note - Anesthesia - Invasive Line Right Arterial Line Time Out Performed: Yes Date of Procedure: 08/07/24 Time of Procedure: 06:59 Location of Patient: PreOp Preparation: Sterile Prep, Sterile Dressing Arterial Line Location: Briachial Ultrasound Used: No Purpose - Visualization and Identification of Vasculature: No Image Stored and Saved: No Narrative: Invasive line placement per sterile protocol utilized.
[2024-08-07] MEDS: SYMBICORT 80-4.5 MCG INHALER INHALATION SCH (21:13)
[2024-08-07] MEDS: traMADol 50 MG TAB PO PRN (23:19)
[2024-08-08 03:03] LABS: Basophils % (A) 0 %; Eosinophils # (A) 0.1 k/uL (0-0.7); Eosinophils % (A) 1 %; HCT 39.3 % (34.0-46.0); HGB 12.6 gm/dL (11.4-16.0); Hypochromasia Slight; Lymphocytes # (A) 1.1 k/uL (1.0-4.8); Lymphocytes % (A) 8 %; MCH 30.7 pg (25.0-35.0); MCV 95.9 fL (80.0-100.0); Mean Platelet Volume 7.5; Monocytes # (A) 0.8 k/uL (0-1.0); Monocytes % (A) 6 %; Neutrophils # (A) 12.3 k/uL (1.3-7.7); Neutrophils % (A) 85 %; Platelet Count 245 k/uL (150-450); RDW 13.2 % (11.5-15.5); WBC 14.5 k/uL (3.8-10.6)
[2024-08-08 03:16] LABS: African American GFR (CKD) >90 (>60 ml/min/1.73 sqM); Anion Gap 4 mmol/L; Blood Urea Nitrogen 24 mg/dL (7-17); Calcium 8.2 mg/dL (8.4-10.2); Carbon Dioxide 23 mmol/L (22-30); Chloride 107 mmol/L (98-107); Glucose 132 mg/dL (74-99); Non-African American GFR(CKD) >90 (>60 ml/min/1.73 sqM); Potassium 4.8 mmol/L (3.5-5.1); Sodium 134 mmol/L (137-145)
--- NOTE | 2024-08-08 07:55 | P.PN ---
Subjective Progress Note Date: 08/08/24 Principal diagnosis: Lung cancer right lower lobe, biopsy-proven adenocarcinoma. Previous medical history of bladder and bilateral kidney cancer since 2021 without chemo or radiation, currently receiving BCG treatments, chronic hyponatremia, asthma, previous tobacco dependence, COPD POD #1 robotic assisted thoracoscopic right lower lobectomy with mediastinal lymph node dissection The patient was seen and examined this morning sitting up in recliner in the intensive care unit, although she is a 3 S. overflow patient. She does complain of some right sided expected postoperative pain, denies shortness of breath. Remains in sinus rhythm, hemodynamically stable, oxygen saturation in the mid 90s on room air. She is able to achieve 1500 mL on incentive spirometry. Right pleural chest tube present to continuous wall suction, positive airleak with expiration. Lab work, chest x-ray reviewed. Discussed with Dr. Murrell this morning. No other new concerns. Objective - Vital Signs Vital signs: Vital Signs Temp 98.0 F 08/08/24 04:00 Pulse 75 08/08/24 04:00 Resp 16 08/08/24 04:00 BP 117/98 08/08/24 04:00 Pulse Ox 95 08/08/24 04:00 FiO2 Intake & Output 08/07/24 08/08/24 08/08/24 18:59 06:59 18:59 Intake Total 2450 500 Output Total 475 740 Balance 1974 - Weight 51.6 kg 52.5 kg Intake: IV 2450 500 Dextrose 5%-0.45% NaCl 1, 50 500 000 ml @ 50 mls/hr IV . Q20H [facility] Rx#:[id number] Output: Drainage 340 Right Chest 340 Urine 450 400 Estimated Blood Loss 25 Other: Voiding Method Indwelling Catheter - Exam CONSTITUTIONAL: Appears comfortable, cooperative, no acute distress RESPIRATORY: Lungs sounds diminished bilaterally. Respirations even, nonlabored. Currently on room air with oxygen saturation 95%. Able to achieve 1500 mL on incentive spirometry. Strong cough. CARDIOVASCULAR: S1, S2 present. Regular rate and rhythm, sinus rhythm on telemetry. Palpable peripheral pulses bilaterally. No edema present. No calf pain or tenderness noted. SCDs present. GASTROINTESTINAL: Abdomen soft, nontender, nondistended. Active bowel sounds present 4 quadrants. Tolerating diet. Positive flatus GENITOURINARY: [place] was present this morning, discontinued, due to void INTEGUMENTARY: Skin is warm and dry with evidence of good perfusion. Thoracic incision well approximated and covered with dry intact dressing. NEUROLOGIC: Cranial nerves II through XII intact MUSKULOSKELETAL: Able to move all extremities, strength equal bilaterally, gait normal PSYCHIATRIC: Alert and oriented to person place and time, appropriate affect, intact judgment and insight INVASIVE LINES AND TUBES: Right pleural chest tube present and connected to wall suction, air leak present with expiration, 210 mL serosanguineous drainage overnight, 500 mL since surgery - Allied health notes Allied health notes reviewed: nursing - Labs CBC & Chem 7: 08/08/24 02:36 08/08/24 02:36 Labs: Abnormal Lab Results - Last 24 Hours (Table) 08/07/24 08/08/24 08/08/24 Range/Units 17:17 02:36 02:36 WBC 14.5 H (3.8-10.6) k/uL Neutrophils # 12.3 H (1.3-7.7) k/uL Sodium 134 L (137-145) mmol/L BUN 24 H (7-17) mg/dL Glucose 132 H (74-99) mg/dL POC Glucose (mg/dL) 128 H (70-110) mg/dL Calcium 8.2 L (8.4-10.2) mg/dL - Imaging and Cardiology Chest x-ray: image reviewed Assessment and Plan Assessment: Lung cancer right lower lobe, biopsy-proven adenocarcinoma, status post robotic assisted thoracoscopic right lower lobectomy with mediastinal lymph node dissection History of bladder and bilateral kidney cancer since 2021 without chemo or radiation, currently receiving BCG treatments Chronic hyponatremia Asthma Previous tobacco dependence, preoperative FEV1 82% of predicted Plan: Chest tube placed to waterseal, will repeat chest x-ray about noon Encourage incentive spirometry 10 times every hour while awake. Bronchodilators per pulmonology Will monitor daily labs and x-rays Increase activity as tolerated Continue home medications Pain control per current medication regimen GI/DVT prophylaxis More recommendations to follow
--- NOTE | 2024-08-08 08:17 | XR ---
EXAMINATION TYPE: XR chest 1V DATE OF EXAM: 08/08/2024 COMPARISON: 08/07/2024 CLINICAL INDICATION: Female, 69 years old with history of post right lower lobectomy; TECHNIQUE: Single frontal view of the chest is obtained. FINDINGS: Apically directed right-sided chest tube redemonstrated. There is a trace right apical pne umothorax measuring 8 mm. A lateral right basilar component is also noted measuring up to 1.4 cm. Nei ther were seen previously. Heart borderline enlarged. Hyperinflation. Some patchy retrocardiac opacit y with clearing of the previous lateral left basilar opacity. IMPRESSION: 1. Right-sided chest tube in place. There is now a small right-sided pneumothorax visualized measurin g 8 mm at the apex and 1.4 cm at the lateral base. 2. Background COPD and borderline cardiomegaly. 3. Some shifting opacities at the left base, probably atelectasis. [facility], , 08/08/2024 8:14 AM
[2024-08-08] MEDS: PANTOPRAZOLE 40 MG TABLET PO SCH (08:30)
[2024-08-08] MEDS: MULTIVITAMINS, THERA 1 EACH TAB PO SCH (08:30)
--- NOTE | 2024-08-08 12:18 | P.PN ---
Subjective Progress Note Date: 08/08/24 Principal diagnosis: Let us post robotic assisted right lower lobectomy postoperative day #1 This is a pleasant 69-year-old female with a known history of smoking, chronic obstructive pulmonary disease, bladder cancer with metastasis to the kidney and was receiving BCG irrigations of the bladder. A screening CT scan of the chest revealed evidence of a 1.5 cm spiculated lesion in the right upper lobe. This was PET scan positive. She had undergone biopsies that was proven pulmonary adenocarcinoma. She was brought in today electively for a robotic assisted thoracoscopic right lower lobectomy. She is seen today in consultation in the recovery room. She is arousable. She is maintaining good O2 saturations in the 90s on a nonrebreather mask. Right sided chest tube is in place. Positive leak. He is afebrile. Hemodynamically stable. She will be educated regarding the use of the incentive spirometer. X-ray reveals a right sided chest tube in place. No significant pneumothorax noted. She has lactated Ringer's at 20 mL/h. Dilaudid for pain control. Zofran for nausea. Patient was evaluated today on 08/08/2024, patient is now postoperative day #1, remains in the ICU as an overflow, sitting up in the recliner, does not seem to be in any distress, does have some vague postoperative pain, expected, she is in sinus rhythm, hemodynamically stable, achieving 1500 cc on incentive spirometry. Right-sided pleural chest tube remains in place, it is on wall suction, positive air leak with expiration noted. Overall the patient is doing great and as good as expected. WBC count is 14.5 hemoglobin is 12.6 electrolytes are normal renal profile is normal Objective - Vital Signs Vital signs: Vital Signs Temp 98.1 F 08/08/24 08:00 Pulse 72 08/08/24 11:20 Resp 14 08/08/24 08:00 BP 112/71 08/08/24 08:00 Pulse Ox 95 08/08/24 08:00 FiO2 Intake & Output 08/07/24 08/08/24 08/08/24 18:59 06:59 18:59 Intake Total 2450 500 Output Total 475 740 Balance 1974 Weight 51.6 kg 52.5 kg Intake: IV 2450 500 Dextrose 5%-0.45% NaCl 1, 50 500 000 ml @ 50 mls/hr IV . Q20H [facility] Rx#:[id number] Output: Drainage 340 Right Chest 340 Urine 450 400 Estimated Blood Loss 25 Other: Voiding Method Indwelling Catheter - Exam GENERAL EXAM: 69-year-old female in no distress HEAD: Normocephalic. Atraumatic EYES: Normal reaction of pupils, equal size. NOSE: Clear with pink turbinates. THROAT: No erythema or exudates. NECK: No masses, no JVD. CHEST: No chest wall deformity. Right sided chest tube secured in place to Pleur-evac, positive leak LUNGS: Equal air entry with no crackles, wheeze, rhonchi or dullness. CVS: S1 and S2 normal with no audible murmur, regular rhythm. ABDOMEN: No hepatosplenomegaly, normal bowel sounds, no guarding or rigidity. SKIN: No rashes CENTRAL NERVOUS SYSTEM: Alert oriented x 3 no focal deficit EXTREMITIES: No clubbing edema or cyanosis. - Labs CBC & Chem 7: 08/08/24 02:36 08/08/24 02:36 Labs: Abnormal Lab Results - Last 24 Hours (Table) 08/07/24 08/08/24 08/08/24 Range/Units 17:17 02:36 02:36 WBC 14.5 H (3.8-10.6) k/uL Neutrophils # 12.3 H (1.3-7.7) k/uL Sodium 134 L (137-145) mmol/L BUN 24 H (7-17) mg/dL Glucose 132 H (74-99) mg/dL POC Glucose (mg/dL) 128 H (70-110) mg/dL Calcium 8.2 L (8.4-10.2) mg/dL Assessment and Plan Assessment: Pression: Recently diagnosed right lower lobe adenocarcinoma, status post robotic assisted thoracoscopic right lower lobectomy with mediastinal lymph node dissection postoperative day #1 History of bladder and bilateral kidney cancer since 2021 without chemo or radiation, currently receiving BCG treatments Chronic hyponatremia Asthma Previous tobacco dependence, preoperative FEV1 82% of predicted Recommendation: Continue to monitor on 3 S. patient could be transferred out of the ICU once a b ed is available Continue incentive spirometry Chest tube to waterseal Increase activity as tolerated Resume home meds and bronchodilators Continue GI and DVT prophylaxis Will continue to follow Time with Patient: Less than 30
[2024-08-08] MEDS: ACETAMINOPHEN TAB 500 MG TAB PO PRN (12:23)
--- NOTE | 2024-08-08 12:26 | XR ---
EXAMINATION TYPE: XR chest 1V portable DATE OF EXAM: 08/08/2024 COMPARISON: 08/07/2024 CLINICAL INDICATION: Female, 69 years old with history of chest tube water seal;eval lobectomy; TECHNIQUE: Single frontal view of the chest is obtained. FINDINGS: There is a right-sided chest tube with the tip in the region of the lung apex. There is development o f a small 5% right apical pneumothorax. There is increasing small right pleural effusion. There is a small focal infiltrate in the right lung base which is stable. The left lung is essentially clear. The heart and pulmonary vasculature are normal. The osseous structures are intact. IMPRESSION: 1. Development of a small approximately 5% right apical pneumothorax. 2. No change in the right chest tube. 3. Mild increase in the small right pleural effusion and persistent small right lower lobe infiltrate /atelectasis. [facility], , 08/08/2024 12:23 PM
--- NOTE | 2024-08-08 13:20 | P.ANPRN ---
Procedure Note - Anesthesia - Nerve Block Performed Right Erector Spinae Single Time Out Performed: Yes Date of Procedure: 08/07/24 Procedure Start Time: 10:53 Procedure Stop Time: :59 Location of Patient: PreOp Indication: Acute Post-Operative Pain, Requested by Surgeon Sedation Type: Sedate with meaningful contact maintained Preparation: Sterile Prep Position: Sitting Needle Types: Pajunk Needle Gauge: 21 Ultrasound used to visualize needle placement: Yes Ultrasound used to observe medication spread: Yes Blood Aspirated: No Pain Paresthesia on Injection Noted: No Resistance on Injection: Normal Image Stored and Saved: Yes Events: Uneventful and Well Tolerated (Ropivacaine 0.5% 15 cc per plus normal saline 10 cc given at T6 on the right side)
[2024-08-08] MEDS: polyethylene glycoL 3350 17 GM POWD.PACK PO PRN (18:28)
[2024-08-09 05:02] LABS: HCT 36.5 % (34.0-46.0); HGB 11.8 gm/dL (11.4-16.0); MCH 30.4 pg (25.0-35.0); MCHC 32.3 g/dL (31.0-37.0); Mean Platelet Volume 7.4; Platelet Count 239 k/uL (150-450); RBC 3.89 m/uL (3.80-5.40); RDW 13.1 % (11.5-15.5); WBC 7.7 k/uL (3.8-10.6)
[2024-08-09 05:21] LABS: African American GFR (CKD) >90 (>60 ml/min/1.73 sqM); Anion Gap 0 mmol/L; Blood Urea Nitrogen 25 mg/dL (7-17); Calcium 9.3 mg/dL (8.4-10.2); Carbon Dioxide 30 mmol/L (22-30); Chloride 100 mmol/L (98-107); Glucose 93 mg/dL (74-99); Non-African American GFR(CKD) >90 (>60 ml/min/1.73 sqM); Potassium 4.8 mmol/L (3.5-5.1); Sodium 130 mmol/L (137-145)
--- NOTE | 2024-08-09 07:13 | P.PN ---
Subjective Progress Note Date: 08/09/24 Principal diagnosis: Lung cancer right lower lobe, biopsy-proven adenocarcinoma. Previous medical history of bladder and bilateral kidney cancer since 2021 without chemo or radiation, currently receiving BCG treatments, chronic hyponatremia, asthma, previous tobacco dependence, COPD POD #2 robotic assisted thoracoscopic right lower lobectomy with mediastinal lymph node dissection The patient was seen and examined this morning sitting up in recliner in the intensive care unit, remains 3 S. overflow patient, no 3 S. beds available. She does complain of some right sided expected postoperative pain, denies shortness of breath. Remains in sinus rhythm, hemodynamically stable, oxygen saturation in the mid 90s on room air, does dip down to 89 to 91% periodically but recovers back up into the mid 90s once she takes deep breaths. She is able to achieve 1500 mL on incentive spirometry. Right pleural chest tube present to [facility], minimal airleak with expiration and coughing. States she has been up and ambulatory since chest tube placed to [facility]. Lab work, chest x-ray reviewed. Discussed with Dr. Murrell this morning. No other new concerns. Objective - Vital Signs Vital signs: Vital Signs Temp 98.6 F 08/09/24 04:00 Pulse 69 08/09/24 06:57 Resp 17 08/09/24 04:00 BP 121/94 08/09/24 04:00 Pulse Ox 99 08/09/24 04:00 FiO2 Intake & Output 08/08/24 08/09/24 08/09/24 18:59 06:59 18:59 Intake Total 780 Output Total 650 605 Balance 130 -605 Weight 55.3 kg Intake: Oral 780 Output: Drainage 50 5 Right Chest 50 5 Urine 600 600 - Exam CONSTITUTIONAL: Appears mostly comfortable, cooperative, no acute distress RESPIRATORY: Lungs sounds diminished bilaterally. Respirations even, nonlabored. Currently on room air with oxygen saturation 95%. Able to achieve 1500 mL on incentive spirometry. Strong cough. CARDIOVASCULAR: S1, S2 present. Regular rate and rhythm, sinus rhythm on telemetry. Palpable peripheral pulses bilaterally. No edema present. No calf pain or tenderness noted. SCDs present. GASTROINTESTINAL: Abdomen soft, nontender, nondistended. Active bowel sounds present 4 quadrants. Tolerating diet. Positive flatus GENITOURINARY: Continues to void INTEGUMENTARY: Skin is warm and dry with evidence of good perfusion. Thoracic incision well approximated and covered with dry intact dressing. NEUROLOGIC: Cranial nerves II through XII intact MUSKULOSKELETAL: Able to move all extremities, strength equal bilaterally, gait normal PSYCHIATRIC: Alert and oriented to person place and time, appropriate affect, intact judgment and insight INVASIVE LINES AND TUBES: Right pleural chest tube present to waterseal, minimal air leak present with expiration and coughing, 5 mL serosanguineous drainage overnight, 100 mL in the last 24 hours - Allied health notes Allied health notes reviewed: nursing - Labs CBC & Chem 7: 08/09/24 04:50 08/09/24 04:50 Labs: Abnormal Lab Results - Last 24 Hours (Table) 08/09/24 Range/Units 04:50 Sodium 130 L (137-145) mmol/L BUN 25 H (7-17) mg/dL - Imaging and Cardiology Chest x-ray: image reviewed Assessment and Plan Assessment: Lung cancer right lower lobe, biopsy-proven adenocarcinoma, status post robotic assisted thoracoscopic right lower lobectomy with mediastinal lymph node dissection History of bladder and bilateral kidney cancer since 2021 without chemo or radiation, currently receiving BCG treatments Chronic hyponatremia Asthma Previous tobacco dependence, preoperative FEV1 82% of predicted Plan: Continue chest tube to waterseal, monitor for airleak resolution Encourage incentive spirometry 10 times every hour while awake. Bronchodilators per pulmonology Will monitor daily labs and x-rays Increase activity as tolerated Continue home medications Pain control per current medication regimen GI/DVT prophylaxis May transfer to 3 S. if bed becomes available More recommendations to follow
--- NOTE | 2024-08-09 07:32 | XR ---
EXAMINATION TYPE: XR chest 1V portable DATE OF EXAM: 08/09/2024 4:43 AM COMPARISON: Chest radiographs from 08/08/2024 CLINICAL INDICATION: Female, 69 years old with history of Post right lower lobectomy; TECHNIQUE: XR chest 1V portable Frontal view of the chest. FINDINGS: Lungs/Pleura: There is no evidence of pleural effusion, focal consolidation, or left pneumothorax. B lunting of the right costophrenic angle. Pulmonary vascularity: Unremarkable. Heart/mediastinum: Cardiomediastinal silhouette is unremarkable. Musculoskeletal: No acute osseous pathology. Other findings: None Lines/Tubes: Right thoracotomy tube is present with small apical pneumothorax. IMPRESSION: 1. Right thoracotomy tube with small apical pneumothorax. 2. Small right pleural effusion. [facility], , 08/09/2024 7:30 AM
[2024-08-09] MEDS: polyethylene glycoL 3350 17 GM POWD.PACK PO SCH (08:34)
--- NOTE | 2024-08-09 14:37 | P.PN ---
Subjective Progress Note Date: 08/09/24 Principal diagnosis: post robotic assisted right lower lobectomy postoperative day 2 This is a pleasant 69-year-old female with a known history of smoking, chronic obstructive pulmonary disease, bladder cancer with metastasis to the kidney and was receiving BCG irrigations of the bladder. A screening CT scan of the chest revealed evidence of a 1.5 cm spiculated lesion in the right upper lobe. This was PET scan positive. She had undergone biopsies that was proven pulmonary adenocarcinoma. She was brought in today electively for a robotic assisted thoracoscopic right lower lobectomy. She is seen today in consultation in the recovery room. She is arousable. She is maintaining good O2 saturations in the 90s on a nonrebreather mask. Right sided chest tube is in place. Positive leak. He is afebrile. Hemodynamically stable. She will be educated regarding the use of the incentive spirometer. X-ray reveals a right sided chest tube in place. No significant pneumothorax noted. She has lactated Ringer's at 20 mL/h. Dilaudid for pain control. Zofran for nausea. Patient was evaluated today on 08/08/2024, patient is now postoperative day #1, remains in the ICU as an overflow, sitting up in the recliner, does not seem to be in any distress, does have some vague postoperative pain, expected, she is in sinus rhythm, hemodynamically stable, achieving 1500 cc on incentive spirometry. Right-sided pleural chest tube remains in place, it is on wall suction, positive air leak with expiration noted. Overall the patient is doing great and as good as expected. WBC count is 14.5 hemoglobin is 12.6 electrolytes are normal renal profile is normal patient was seen today on 08/09/2024, she is now postoperative day #2, doing well ambulating in the ICU, patient is doing great. Compliant with her incentive spirometry and achieving over 500 cc on incentive spirometry right- sided chest tube remains to waterseal, minimal air leak noted. Chest x-ray showed adequate expansion of her lungs, no evidence of pneumothorax. Objective - Vital Signs Vital signs: Vital Signs Temp 98.6 F 08/09/24 12:00 Pulse 67 08/09/24 12:00 Resp 22 08/09/24 12:00 BP 111/74 08/09/24 12:00 Pulse Ox 92 L 08/09/24 12:00 FiO2 Intake & Output 08/08/24 08/09/24 08/09/24 18:59 06:59 18:59 Intake Total 780 Output Total 650 605 Balance 130 -605 Weight 55.3 kg Intake: Oral 780 Output: Drainage 50 5 Right Chest 50 5 Urine 600 600 - Exam GENERAL EXAM: 69-year-old female in no distress, on 2 L nasal cannula with O2 saturation ranging between 92 up to 97% HEAD: Normocephalic. Atraumatic EYES: Normal reaction of pupils, equal size. NOSE: Clear with pink turbinates. THROAT: No erythema or exudates. NECK: No masses, no JVD. CHEST: No chest wall deformity. Right sided chest tube noted, it is now on waterseal LUNGS: Equal air entry with no crackles, wheeze, rhonchi or dullness. CVS: S1 and S2 normal with no audible murmur, regular rhythm. ABDOMEN: No hepatosplenomegaly, normal bowel sounds, no guarding or rigidity. SKIN: No rashes CENTRAL NERVOUS SYSTEM: Alert oriented x 3 no focal deficit EXTREMITIES: No clubbing edema or cyanosis. - Labs CBC & Chem 7: 08/09/24 04:50 08/09/24 04:50 Labs: Abnormal Lab Results - Last 24 Hours (Table) 08/09/24 Range/Units 04:50 Sodium 130 L (137-145) mmol/L BUN 25 H (7-17) mg/dL Assessment and Plan Assessment: Pression: Recently diagnosed right lower lobe adenocarcinoma, status post robotic assisted thoracoscopic right lower lobectomy with mediastinal lymph node dissection postoperative day #2 History of bladder and bilateral kidney cancer since 2021 without chemo or radiation, currently receiving BCG treatments Chronic hyponatremia Asthma Previous tobacco dependence, preoperative FEV1 82% of predicted Recommendation: Patient to transfer to [facility]. once a bed is available Continue oxygen and titrate accordingly Continue incentive spirometry Continue chest tube to waterseal Continue to ambulate Resume home meds and bronchodilators Continue GI and DVT prophylaxis Will continue to follow Time with Patient: Less than 30
[2024-08-10 06:25] LABS: HCT 37.8 % (34.0-46.0); HGB 12.5 gm/dL (11.4-16.0); MCH 30.7 pg (25.0-35.0); MCV 92.9 fL (80.0-100.0); Mean Platelet Volume 7.6; Platelet Count 283 k/uL (150-450); RBC 4.07 m/uL (3.80-5.40); RDW 13.1 % (11.5-15.5); WBC 7.5 k/uL (3.8-10.6)
[2024-08-10 06:44] LABS: African American GFR (CKD) >90 (>60 ml/min/1.73 sqM); Anion Gap 5 mmol/L; Blood Urea Nitrogen 29 mg/dL (7-17); Calcium 10.3 mg/dL (8.4-10.2); Carbon Dioxide 31 mmol/L (22-30); Chloride 97 mmol/L (98-107); Glucose 96 mg/dL (74-99); Non-African American GFR(CKD) >90 (>60 ml/min/1.73 sqM); Sodium 133 mmol/L (137-145)
--- NOTE | 2024-08-10 07:33 | XR ---
EXAMINATION TYPE: XR chest 2V DATE OF EXAM: 08/10/2024 6:30 AM COMPARISON: Chest radiographs from 08/09/2024 CLINICAL INDICATION: Female, 69 years old with history of Right lower lobectomy; [facility] TECHNIQUE: XR chest 2V Frontal and lateral views of the chest. FINDINGS: Lungs/Pleura: Right thoracotomy tube with trace right apical pneumothorax. There is no evidence of pl eural effusion, focal consolidation, or left pneumothorax. Pulmonary vascularity: Unremarkable. Heart/mediastinum: Cardiomediastinal silhouette is unremarkable. Musculoskeletal: No acute osseous pathology. IMPRESSION: Right thoracotomy tube with trace pneumothorax. [facility], , 08/10/2024 7:31 AM
--- NOTE | 2024-08-10 07:49 | P.PN ---
Subjective Progress Note Date: 08/10/24 Principal diagnosis: Lung cancer right lower lobe, biopsy-proven adenocarcinoma. Previous medical history of bladder and bilateral kidney cancer since 2021 without chemo or radiation, currently receiving BCG treatments, chronic hyponatremia, asthma, previous tobacco dependence, COPD POD #3 robotic assisted thoracoscopic right lower lobectomy with mediastinal lymph node dissection The patient was seen and examined this morning sitting up in recliner in the intensive care unit, remains 3 S. overflow patient, no 3 S. beds available. She does complain of some right sided expected postoperative pain but states it is controlled with current medication regimen, denies shortness of breath. Remains in sinus rhythm, hemodynamically stable, oxygen saturation in the mid 90s on room air. She is able to achieve 1418-6900 mL on incentive spirometry. Right pleural chest tube present to waterseal, minimal airleak with forceful coughing only. She has been ambulatory in the hallway without difficulty. Lab work, chest x-ray reviewed. Discussed with Dr. Oliveira. No other new concerns. Objective - Vital Signs Vital signs: Vital Signs Temp 98.8 F 08/10/24 04:00 Pulse 70 08/10/24 04:00 Resp 19 08/10/24 04:00 BP 130/79 08/10/24 04:00 Pulse Ox 90 L 08/10/24 04:00 FiO2 Intake & Output 08/09/24 08/10/24 08/10/24 18:59 06:59 18:59 Intake Total 800 450 Output Total 50 Balance 800 400 Weight 56.2 kg Intake: Oral 800 450 Output: Drainage 50 Right Chest 50 Other: # Voids 1 2 - Exam CONSTITUTIONAL: Appears mostly comfortable, cooperative, no acute distress RESPIRATORY: Lungs sounds diminished bilaterally. Respirations even, nonlabored. Currently on room air with oxygen saturation 95%. Able to achieve 4145-4257 mL on incentive spirometry. Strong cough. CARDIOVASCULAR: S1, S2 present. Regular rate and rhythm, sinus rhythm on telemetry. Palpable peripheral pulses bilaterally. No edema present. No calf pain or tenderness noted. SCDs present. GASTROINTESTINAL: Abdomen soft, nontender, nondistended. Active bowel sounds present 4 quadrants. Tolerating diet GENITOURINARY: Continues to void INTEGUMENTARY: Skin is warm and dry with evidence of good perfusion NEUROLOGIC: Cranial nerves II through XII intact MUSKULOSKELETAL: Able to move all extremities, strength equal bilaterally, gait normal PSYCHIATRIC: Alert and oriented to person place and time, appropriate affect, intact judgment and insight INVASIVE LINES AND TUBES: Right pleural chest tube present to [facility], minimal air leak present with forceful coughing only, 50 mL serosanguineous drainage overnight, 100 mL in the last 24 hours - Allied health notes Allied health notes reviewed: nursing - Labs CBC & Chem 7: 08/10/24 05:54 08/10/24 05:54 Labs: Abnormal Lab Results - Last 24 Hours (Table) 08/10/24 Range/Units 05:54 Sodium 133 L (137-145) mmol/L Chloride 97 L (98-107) mmol/L Carbon Dioxide 31 H (22-30) mmol/L BUN 29 H (7-17) mg/dL Calcium 10.3 H (8.4-10.2) mg/dL - Imaging and Cardiology Chest x-ray: report reviewed, image reviewed Assessment and Plan Assessment: Lung cancer right lower lobe, biopsy-proven adenocarcinoma, status post robotic assisted thoracoscopic right lower lobectomy with mediastinal lymph node dissection History of bladder and bilateral kidney cancer since 2021 without chemo or radiation, currently receiving BCG treatments Chronic hyponatremia Asthma Previous tobacco dependence, preoperative FEV1 82% of predicted Plan: [facility] to [facility], monitor for airleak resolution Encourage incentive spirometry 10 times every hour while awake. Bronchodilators per pulmonology Will monitor daily labs and x-rays Increase activity as tolerated Continue home medications Pain control per current medication regimen GI/DVT prophylaxis May transfer to 3 S. if bed becomes available More recommendations to follow
[2024-08-10] MEDS: MAGNESIUM HYDROXIDE 2,400 MG/30 ML CUP PO STA (09:12)
[2024-08-10] MEDS: bisacodyL 10 MG SUPP RECTAL SCH (09:12)
--- NOTE | 2024-08-10 13:23 | P.PN ---
Subjective Progress Note Date: 08/10/24 Principal diagnosis: post robotic assisted right lower lobectomy postoperative day #3 This is a pleasant 69-year-old female with a known history of smoking, chronic obstructive pulmonary disease, bladder cancer with metastasis to the kidney and was receiving BCG irrigations of the bladder. A screening CT scan of the chest revealed evidence of a 1.5 cm spiculated lesion in the right upper lobe. This was PET scan positive. She had undergone biopsies that was proven pulmonary adenocarcinoma. She was brought in today electively for a robotic assisted thoracoscopic right lower lobectomy. She is seen today in consultation in the recovery room. She is arousable. She is maintaining good O2 saturations in the 90s on a nonrebreather mask. Right sided chest tube is in place. Positive leak. He is afebrile. Hemodynamically stable. She will be educated regarding the use of the incentive spirometer. X-ray reveals a right sided chest tube in place. No significant pneumothorax noted. She has lactated Ringer's at 20 mL/h. Dilaudid for pain control. Zofran for nausea. Patient was evaluated today on 08/08/2024, patient is now postoperative day #1, remains in the ICU as an overflow, sitting up in the recliner, does not seem to be in any distress, does have some vague postoperative pain, expected, she is in sinus rhythm, hemodynamically stable, achieving 1500 cc on incentive spirometry. Right-sided pleural chest tube remains in place, it is on wall suction, positive air leak with expiration noted. Overall the patient is doing great and as good as expected. WBC count is 14.5 hemoglobin is 12.6 electrolytes are normal renal profile is normal patient was seen today on 08/09/2024, she is now postoperative day #2, doing well ambulating in the ICU, patient is doing great. Compliant with her incentive spirometry and achieving over 500 cc on incentive spirometry right- sided chest tube remains to waterseal, minimal air leak noted. Chest x-ray showed adequate expansion of her lungs, no evidence of pneumothorax. Seen today on 08/10/2024, patient is now postoperative day #3 robotic assisted thoracoscopic right lower lobectomy with mediastinal lymph node dissection, patient is doing well, ambulating in the ICU without any difficulty, patient is an overflow in the ICU. Chest x-ray is reassuring, she does have a trace of right apical pneumothorax, pathology from her surgery is pending. Patient is compliant with her incentive spirometry does not seem to be in any distress. WBC count is 7.5 hemoglobin 12.5 basic metabolic profile is normal and renal profile is normal calcium is 10.3 Objective - Vital Signs Vital signs: Vital Signs Temp 98.6 F 08/10/24 12:00 Pulse 85 08/10/24 12:00 Resp 20 08/10/24 12:00 BP 117/79 08/10/24 12:00 Pulse Ox 94 L 08/10/24 12:00 FiO2 Intake & Output 08/09/24 08/10/24 08/10/24 18:59 06:59 18:59 Intake Total 800 450 Output Total 50 Balance 800 400 Weight 56.2 kg Intake: Oral 800 450 Output: Drainage 50 Right Chest 50 Other: Voiding Method Toilet # Voids 1 2 - Exam GENERAL EXAM: 69-year-old female in no distress, on room air with O2 sat of 94% HEAD: Normocephalic. Atraumatic EYES: Normal reaction of pupils, equal size. NOSE: Clear with pink turbinates. THROAT: No erythema or exudates. NECK: No masses, no JVD. CHEST: No chest wall deformity. Right sided chest tube noted, it is now on waterseal LUNGS: Equal air entry with no crackles, wheeze, rhonchi or dullness. CVS: S1 and S2 normal with no audible murmur, regular rhythm. ABDOMEN: No hepatosplenomegaly, normal bowel sounds, no guarding or rigidity. SKIN: No rashes CENTRAL NERVOUS SYSTEM: Alert oriented x 3 no focal deficit EXTREMITIES: No clubbing edema or cyanosis. - Labs CBC & Chem 7: 08/10/24 05:54 08/10/24 05:54 Labs: Abnormal Lab Results - Last 24 Hours (Table) 08/10/24 Range/Units 05:54 Sodium 133 L (137-145) mmol/L Chloride 97 L (98-107) mmol/L Carbon Dioxide 31 H (22-30) mmol/L BUN 29 H (7-17) mg/dL Calcium 10.3 H (8.4-10.2) mg/dL Assessment and Plan Assessment: Pression: Recently diagnosed right lower lobe adenocarcinoma, status post robotic assisted thoracoscopic right lower lobectomy with mediastinal lymph node dissection postoperative day #3 History of bladder and bilateral kidney cancer since 2021 without chemo or radiation, currently receiving BCG treatments Chronic hyponatremia Asthma Previous tobacco dependence, preoperative FEV1 82% of predicted Recommendation: Continue oxygen and titrate accordingly Continue incentive spirometry Continue chest tube to waterseal, chest x-ray today is reassuring patient has minimal air leak upon coughing Continue to ambulate Resume home meds and bronchodilators Continue GI and DVT prophylaxis Will continue to follow Time with Patient: Less than 30
[2024-08-11 05:52] LABS: HCT 37.8 % (34.0-46.0); HGB 12.3 gm/dL (11.4-16.0); MCH 30.5 pg (25.0-35.0); MCHC 32.6 g/dL (31.0-37.0); MCV 93.3 fL (80.0-100.0); Mean Platelet Volume 7.4; Platelet Count 269 k/uL (150-450); RBC 4.05 m/uL (3.80-5.40); RDW 13.2 % (11.5-15.5); WBC 9.9 k/uL (3.8-10.6)
[2024-08-11 06:07] LABS: African American GFR (CKD) >90 (>60 ml/min/1.73 sqM); Anion Gap 3 mmol/L; Blood Urea Nitrogen 33 mg/dL (7-17); Calcium 10.1 mg/dL (8.4-10.2); Carbon Dioxide 34 mmol/L (22-30); Chloride 97 mmol/L (98-107); Glucose 103 mg/dL (74-99); Non-African American GFR(CKD) 88 (>60 ml/min/1.73 sqM); Potassium 4.8 mmol/L (3.5-5.1); Sodium 134 mmol/L (137-145)
[2024-08-11] MEDS ORDERED: bisacodyL 10 MG SUPP RECTAL PRN (06:52)
--- NOTE | 2024-08-11 07:40 | P.PN ---
Subjective Progress Note Date: 08/11/24 Principal diagnosis: Lung cancer right lower lobe, biopsy-proven adenocarcinoma. Previous medical history of bladder and bilateral kidney cancer since 2021 without chemo or radiation, currently receiving BCG treatments, chronic hyponatremia, asthma, previous tobacco dependence, COPD POD #3 robotic assisted thoracoscopic right lower lobectomy with mediastinal lymph node dissection The patient was seen and examined this morning sitting up in recliner in the intensive care unit, remains 3 S. overflow patient, no 3 S. beds available. States right sided expected postoperative pain controlled with current medication regimen, this morning she complains of some nausea and headache, denies shortness of breath. Remains in sinus rhythm, hemodynamically stable, oxygen saturation in the mid 90s on room air. She is able to achieve 2917-1330 mL on incentive spirometry. Right pleural chest tube present to waterseal, minimal airleak with forceful coughing only. She has been ambulatory in the hallway without difficulty. Lab work, chest x-ray reviewed. No other new concerns. Objective - Vital Signs Vital signs: Vital Signs Temp 98.0 F 08/11/24 04:00 Pulse 78 08/11/24 04:00 Resp 19 08/11/24 04:00 BP 148/68 08/11/24 04:00 Pulse Ox 94 L 08/11/24 04:00 FiO2 Intake & Output 08/10/24 08/11/24 08/11/24 18:59 06:59 18:59 Intake Total 1000 Output Total 130 Balance 1000 -130 Weight 54 kg Intake: Oral 1000 Output: Drainage 130 Right Chest 130 Other: Voiding Method Toilet Toilet # Voids 3 # Bowel Movements 1 - Exam CONSTITUTIONAL: Appears mostly comfortable, cooperative, no acute distress RESPIRATORY: Lungs sounds diminished bilaterally. Respirations even, nonlabor ed. Currently on room air with oxygen saturation 94%. Able to achieve 1000- 1250 mL on incentive spirometry. Strong cough. CARDIOVASCULAR: S1, S2 present. Regular rate and rhythm, sinus rhythm on telemetry. Palpable peripheral pulses bilaterally. No edema present. No calf pain or tenderness noted. SCDs present. GASTROINTESTINAL: Abdomen soft, nontender, nondistended. Active bowel sounds present 4 quadrants. Tolerating diet. Positive bowel movement 08/11 GENITOURINARY: Continues to void INTEGUMENTARY: Skin is warm and dry with evidence of good perfusion NEUROLOGIC: Cranial nerves II through XII intact MUSKULOSKELETAL: Able to move all extremities, strength equal bilaterally, gait normal PSYCHIATRIC: Alert and oriented to person place and time, appropriate affect, intact judgment and insight INVASIVE LINES AND TUBES: Right pleural chest tube present to waterseal, minimal air leak present at end expiration and with forceful coughing, 130 mL serosanguineous drainage in the last 24 hours - Allied health notes Allied health notes reviewed: nursing - Labs CBC & Chem 7: 08/11/24 05:24 08/11/24 05:24 Labs: Abnormal Lab Results - Last 24 Hours (Table) 08/11/24 Range/Units 05:24 Sodium 134 L (137-145) mmol/L Chloride 97 L (98-107) mmol/L Carbon Dioxide 34 H (22-30) mmol/L BUN 33 H (7-17) mg/dL Glucose 103 H (74-99) mg/dL - Imaging and Cardiology Chest x-ray: image reviewed Assessment and Plan Assessment: Lung cancer right lower lobe, biopsy-proven adenocarcinoma, status post robotic assisted thoracoscopic right lower lobectomy with mediastinal lymph node dissection, final pathology pending History of bladder and bilateral kidney cancer since 2021 without chemo or radiation, currently receiving BCG treatments Chronic hyponatremia Asthma Previous tobacco dependence, preoperative FEV1 82% of predicted Plan: Continue chest tube to waterseal, monitor for airleak resolution Encourage incentive spirometry 10 times every hour while awake. Bronchodilators per pulmonology Will monitor daily labs and x-rays Increase activity as tolerated Continue home medications Pain control per current medication regimen GI/DVT prophylaxis May transfer to 3 S. if bed becomes available More recommendations to follow
--- NOTE | 2024-08-11 08:37 | XR ---
EXAMINATION TYPE: XR chest 2V DATE OF EXAM: 08/11/2024 6:23 AM COMPARISON: 08/10/2024 CLINICAL INDICATION: Female, 69 years old with history of Right lower lobectomy, TECHNIQUE: XR chest 2V view(s) obtained. FINDINGS: The heart size is normal. The pulmonary vasculature is normal. The lungs are clear. Air fluid levels on the right lung base. Loculated hydro-pneumothorax thorax is present at the right costophrenic angle. Right-sided chest tube remains in position. Right apical pn eumothorax is present IMPRESSION: 1. Stable right apical and right costophrenic angle hydropneumothorax post lobectomy. [facility], , 08/11/2024 8:34 AM
[2024-08-11] MEDS: SENNOSIDES-DOCUSATE SODIUM 1 EACH TAB PO SCH (12:02)
--- NOTE | 2024-08-11 13:01 | P.PN ---
Subjective Progress Note Date: 08/11/24 This is a pleasant 69-year-old female with a known history of smoking, chronic obstructive pulmonary disease, bladder cancer with metastasis to the kidney and was receiving BCG irrigations of the bladder. A screening CT scan of the chest revealed evidence of a 1.5 cm spiculated lesion in the right upper lobe. This was PET scan positive. She had undergone biopsies that was proven pulmonary adenocarcinoma. She was brought in today electively for a robotic assisted thoracoscopic right lower lobectomy. She is seen today in consultation in the recovery room. She is arousable. She is maintaining good O2 saturations in the 90s on a nonrebreather mask. Right sided chest tube is in place. Positive leak. He is afebrile. Hemodynamically stable. She will be educated regarding the use of the incentive spirometer. X-ray reveals a right sided chest tube in place. No significant pneumothorax noted. She has lactated Ringer's at 20 mL/h. Dilaudid for pain control. Zofran for nausea. Patient was evaluated today on 08/08/2024, patient is now postoperative day #1, remains in the ICU as an overflow, sitting up in the recliner, does not seem to be in any distress, does have some vague postoperative pain, expected, she is in sinus rhythm, hemodynamically stable, achieving 1500 cc on incentive spirometry. Right-sided pleural chest tube remains in place, it is on wall suction, positive air leak with expiration noted. Overall the patient is doing great and as good as expected. WBC count is 14.5 hemoglobin is 12.6 electrolytes are normal renal profile is normal patient was seen today on 08/09/2024, she is now postoperative day #2, doing well ambulating in the ICU, patient is doing great. Compliant with her incentive spirometry and achieving over 500 cc on incentive spirometry right- sided chest tube remains to waterseal, minimal air leak noted. Chest x-ray showed adequate expansion of her lungs, no evidence of pneumothorax. Seen today on 08/10/2024, patient is now postoperative day #3 robotic assisted thoracoscopic right lower lobectomy with mediastinal lymph node dissection, patient is doing well, ambulating in the ICU without any difficulty, patient is an overflow in the ICU. Chest x-ray is reassuring, she does have a trace of right apical pneumothorax, pathology from her surgery is pending. Patient is compliant with her incentive spirometry does not seem to be in any distress. WBC count is 7.5 hemoglobin 12.5 basic metabolic profile is normal and renal profile is normal calcium is 10.3 The patient is seen today August 11, 2024 in follow-up in the intensive care unit. Postoperative day #4. Is currently sitting up in a chair at the bedside. Awake and alert in no acute distress. Maintaining good O2 saturations in the 90s on room air. Stable right apical and right costophrenic angle hydropneumothorax post lobectomy noted on chest x-ray. Right sided chest tube remains in good position. Minimal leak noted with forceful cough. Well with the incentive spirometer and pulling 1 to 1.5 L. Been up ambulating with assistance. No worsening shortness of breath, cough or congestion. No hemoptysis. White count 9.9. Hemoglobin 12.3. Platelets 269. Sodium 134. Potassium 4.8. Bicarb 34. BUN 33. Creatinine was 0.71. Glucose 103. She remains DuoNeb inhalations and Symbicort. Heparin for DVT prophylaxis. Objective - Vital Signs Vital signs: Vital Signs Temp 98.0 F 08/11/24 08:00 Pulse 84 08/11/24 12:18 Resp 18 08/11/24 12:00 BP 118/90 08/11/24 12:00 Pulse Ox 97 08/11/24 12:00 FiO2 Intake & Output 08/10/24 08/11/24 08/11/24 18:59 06:59 18:59 Intake Total 1000 Output Total 130 Balance 1000 -130 Weight 54 kg Intake: Oral 1000 Output: Drainage 130 Right Chest 130 Other: Voiding Method Toilet Toilet Toilet # Voids 3 # Bowel Movements 1 - Exam GENERAL EXAM: Alert, active, 69-year-old female, up in a chair, on room air, fairly comfortable in no apparent distress. HEAD: Normocephalic. EYES: Normal reaction of pupils, equal size. NOSE: Clear with pink turbinates. THROAT: No erythema or exudates. NECK: No masses, no JVD. CHEST: No chest wall deformity. Right sided chest tube to waterseal Pleur-evac with minimal leak with forceful cough LUNGS: Equal air entry with no crackles, wheeze, rhonchi or dullness. CVS: S1 and S2 normal with no audible murmur, regular rhythm. ABDOMEN: No hepatosplenomegaly, normal bowel sounds, no guarding or rigidity. SPINE: No scoliosis or deformity SKIN: No rashes CENTRAL NERVOUS SYSTEM: No focal deficits, tone is normal in all 4 extremities. EXTREMITIES: There is no peripheral edema. No clubbing, no cyanosis. Peripheral pulses are intact. - Labs CBC & Chem 7: 08/11/24 05:24 08/11/24 05:24 Labs: Abnormal Lab Results - Last 24 Hours (Table) 08/11/24 Range/Units 05:24 Sodium 134 L (137-145) mmol/L Chloride 97 L (98-107) mmol/L Carbon Dioxide 34 H (22-30) mmol/L BUN 33 H (7-17) mg/dL Glucose 103 H (74-99) mg/dL Assessment and Plan Assessment: PET positive pulmonary adenocarcinoma of the right lower lobe. Status post robotic assisted right lower lobectomy. 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 Status post transurethral resection of the bladder tumor Chronic tobacco dependence Plan: The patient was seen and evaluated Chest x-ray, labs and medications reviewed Right sided chest tube minimal leak Hourly use of the incentive spirometer Increase her activity as tolerated She is a 3 S. overflow We will continue to follow I have personally seen and examined the patient, performed the documentation and the assessment and plan as written. Number of minutes spent on the visit: 10 Dictation was produced using [employer] dictation software. Please excuse any grammatical, word or spelling errors.
--- NOTE | 2024-08-12 07:22 | P.PN ---
Subjective Progress Note Date: 08/12/24 Principal diagnosis: Lung cancer right lower lobe, biopsy-proven adenocarcinoma. Previous medical history of bladder and bilateral kidney cancer since 2021 without chemo or radiation, currently receiving BCG treatments, chronic hyponatremia, asthma, previous tobacco dependence, COPD POD #5 robotic assisted thoracoscopic right lower lobectomy with mediastinal lymph node dissection The patient was seen and examined this morning sitting up in recliner in the intensive care unit, remains 3 S. overflow patient, no 3 S. beds available. States right sided expected postoperative pain mostly controlled with current medication regimen although she did have some sharp pain to her right side about 2 am, denies shortness of breath. Remains in sinus rhythm, hemodynamically stable, oxygen saturation in the mid 90s on room air. She is able to achieve 1500 mL on incentive spirometry. Right pleural chest tube present to waterseal, airleak present at end expiration and with coughing. She has been ambulatory in the hallway without difficulty. Chest x-ray reviewed. Discussed with Dr. Murrell. No other new concerns. Objective - Vital Signs Vital signs: Vital Signs Temp 97.9 F 08/12/24 04:00 Pulse 76 08/12/24 04:00 Resp 16 08/12/24 04:00 BP 140/102 08/12/24 04:00 Pulse Ox 96 08/12/24 04:00 FiO2 Intake & Output 08/11/24 08/12/24 08/12/24 18:59 06:59 18:59 Intake Total 1200 600 Output Total 220 80 Balance 980 520 Weight 52.7 kg Intake: Oral 1200 600 Output: Drainage 220 80 Right Chest 220 80 Other: Voiding Method Toilet Toilet # Voids 2 2 - Exam CONSTITUTIONAL: Appears mostly comfortable, cooperative, no acute distress RESPIRATORY: Lungs sounds diminished bilaterally. Respirations even, nonlabored. Currently on room air with oxygen saturation 96%. Able to achieve 1500 mL on incentive spirometry. Strong cough. CARDIOVASCULAR: S1, S2 present. Regular rate and rhythm, sinus rhythm on telemetry. Palpable peripheral pulses bilaterally. No edema present. No calf pain or tenderness noted. SCDs present. GASTROINTESTINAL: Abdomen soft, nontender, nondistended. Active bowel sounds present 4 quadrants. Tolerating diet. Positive bowel movement 08/11 GENITOURINARY: Continues to void INTEGUMENTARY: Skin is warm and dry with evidence of good perfusion NEUROLOGIC: Cranial nerves II through XII intact MUSKULOSKELETAL: Able to move all extremities, strength equal bilaterally, gait normal PSYCHIATRIC: Alert and oriented to person place and time, appropriate affect, intact judgment and insight INVASIVE LINES AND TUBES: Right pleural chest tube present to waterseal, air leak present at end expiration and with coughing - Allied health notes Allied health notes reviewed: nursing - Labs CBC & Chem 7: 08/11/24 05:24 08/11/24 05:24 - Imaging and Cardiology Chest x-ray: image reviewed Assessment and Plan Assessment: Lung cancer right lower lobe, biopsy-proven adenocarcinoma, status post robotic assisted thoracoscopic right lower lobectomy with mediastinal lymph node dissection, final pathology pending History of bladder and bilateral kidney cancer since 2021 without chemo or radiation, currently receiving BCG treatments Chronic hyponatremia Asthma Previous tobacco dependence, preoperative FEV1 82% of predicted Plan: Continue chest tube to waterseal, monitor for airleak resolution Encourage incentive spirometry 10 times every hour while awake. Bronchodilators per pulmonology Will monitor daily labs and x-rays Increase activity as tolerated Continue home medications Pain control per current medication regimen GI/DVT prophylaxis May transfer to 3 S. if bed becomes available More recommendations to follow
--- NOTE | 2024-08-12 07:46 | XR ---
EXAMINATION TYPE: XR chest 2V DATE OF EXAM: 08/12/2024 6:27 AM COMPARISON: 08/11/2024 CLINICAL INDICATION: Female, 69 years old with history of right lower lobectomy, TECHNIQUE: XR chest 2V view(s) obtained. FINDINGS: The heart size is normal. The pulmonary vasculature is normal. Loculated right costophrenic angle pneumothorax remains present. Left-sided chest tube remains presen t. There may be small right apical pneumothorax present. IMPRESSION: 1. Stable loculated right base pneumothorax. 2. Small right apical thorax may be present [facility], , 08/12/2024 7:44 AM
--- NOTE | 2024-08-12 13:49 | P.PN ---
Subjective Progress Note Date: 08/12/24 This is a pleasant 69-year-old female with a known history of smoking, chronic obstructive pulmonary disease, bladder cancer with metastasis to the kidney and was receiving BCG irrigations of the bladder. A screening CT scan of the chest revealed evidence of a 1.5 cm spiculated lesion in the right upper lobe. This was PET scan positive. She had undergone biopsies that was proven pulmonary adenocarcinoma. She was brought in today electively for a robotic assisted thoracoscopic right lower lobectomy. She is seen today in consultation in the recovery room. She is arousable. She is maintaining good O2 saturations in the 90s on a nonrebreather mask. Right sided chest tube is in place. Positive leak. He is afebrile. Hemodynamically stable. She will be educated regarding the use of the incentive spirometer. X-ray reveals a right sided chest tube in place. No significant pneumothorax noted. She has lactated Ringer's at 20 mL/h. Dilaudid for pain control. Zofran for nausea. Patient was evaluated today on 08/08/2024, patient is now postoperative day #1, remains in the ICU as an overflow, sitting up in the recliner, does not seem to be in any distress, does have some vague postoperative pain, expected, she is in sinus rhythm, hemodynamically stable, achieving 1500 cc on incentive spirometry. Right-sided pleural chest tube remains in place, it is on wall suction, positive air leak with expiration noted. Overall the patient is doing great and as good as expected. WBC count is 14.5 hemoglobin is 12.6 electrolytes are normal renal profile is normal patient was seen today on 08/09/2024, she is now postoperative day #2, doing well ambulating in the ICU, patient is doing great. Compliant with her incentive spirometry and achieving over 500 cc on incentive spirometry right- sided chest tube remains to waterseal, minimal air leak noted. Chest x-ray showed adequate expansion of her lungs, no evidence of pneumothorax. Seen today on 08/10/2024, patient is now postoperative day #3 robotic assisted thoracoscopic right lower lobectomy with mediastinal lymph node dissection, patient is doing well, ambulating in the ICU without any difficulty, patient is an overflow in the ICU. Chest x-ray is reassuring, she does have a trace of right apical pneumothorax, pathology from her surgery is pending. Patient is compliant with her incentive spirometry does not seem to be in any distress. WBC count is 7.5 hemoglobin 12.5 basic metabolic profile is normal and renal profile is normal calcium is 10.3 The patient is seen today August 11, 2024 in follow-up in the intensive care unit. Postoperative day #4. Is currently sitting up in a chair at the bedside. Awake and alert in no acute distress. Maintaining good O2 saturations in the 90s on room air. Stable right apical and right costophrenic angle hydropneumothorax post lobectomy noted on chest x-ray. Right sided chest tube remains in good position. Minimal leak noted with forceful cough. Well with the incentive spirometer and pulling 1 to 1.5 L. Been up ambulating with assistance. No worsening shortness of breath, cough or congestion. No hemoptysis. White count 9.9. Hemoglobin 12.3. Platelets 269. Sodium 134. Potassium 4.8. Bicarb 34. BUN 33. Creatinine was 0.71. Glucose 103. She remains DuoNeb inhalations and Symbicort. Heparin for DVT prophylaxis. Today August 12, 2024 in follow-up in the intensive care unit. Postoperative day #5. She is currently sitting up in a chair. Awake and alert in no acute distress. Denies any worsening shortness of breath, cough or congestion. Her right sided chest tube remains to waterseal. There is still a air leak noted. Mostly with forceful cough. Chest x-ray shows stable loculated right base pneumothorax. Small right apical pneumothorax. No IV fluids. She is continued on DuoNeb inhalations, Symbicort. Heparin for DVT prophylaxis. She has been up ambulating in the hallway. She continues to work well with the incentive spirom eter. Objective - Vital Signs Vital signs: Vital Signs Temp 97.5 F L 08/12/24 12:00 Pulse 75 08/12/24 12:17 Resp 18 08/12/24 12:00 BP 131/79 08/12/24 12:00 Pulse Ox 96 08/12/24 12:00 FiO2 Intake & Output 08/11/24 08/12/24 08/12/24 18:59 06:59 18:59 Intake Total 1200 600 240 Output Total 220 80 270 Balance 980 520 -30 Weight 52.7 kg Intake: Oral 1200 600 240 Output: Chest Tube Drainage 20 Right Posterior Chest 20 Drainage 220 80 Right Chest 220 80 Urine 250 Other: Voiding Method Toilet Toilet Toilet # Voids 2 2 1 - Exam GENERAL EXAM: Alert, pleasant 69-year-old female, up in a chair, on room air, comfortable in no apparent distress. HEAD: Normocephalic. EYES: Normal reaction of pupils, equal size. NOSE: Clear with pink turbinates. THROAT: No erythema or exudates. NECK: No masses, no JVD. CHEST: No chest wall deformity. Right sided chest tube to waterseal with minimal leak with forceful cough LUNGS: Equal air entry with no crackles, wheeze, rhonchi or dullness. CVS: S1 and S2 normal with no audible murmur, regular rhythm. ABDOMEN: No hepatosplenomegaly, normal bowel sounds, no guarding or rigidity. SPINE: No scoliosis or deformity SKIN: No rashes CENTRAL NERVOUS SYSTEM: No focal deficits, tone is normal in all 4 extremities. EXTREMITIES: There is no peripheral edema. No clubbing, no cyanosis. Peripheral pulses are intact. - Labs CBC & Chem 7: 24 05:24 1224 05:24 Assessment and Plan Assessment: PET positive pulmonary adenocarcinoma of the right lower lobe. Status post ligia otic assisted right lower lobectomy. 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 Status post transurethral resection of the bladder tumor Chronic tobacco dependence Plan: The patient was seen and evaluated Chest x-ray, labs and medications reviewed Remains stable and on room air Right sided chest tube minimal leak Hourly use of the incentive spirometer Increase her activity as tolerated We will continue to follow I have personally seen and examined the patient, performed the documentation and the assessment and plan as written. Dictation was produced using [employer] dictation software. Please excuse any grammatical, word or spelling errors. This patient was seen in coordination with the pulmonary/critical care physician, Dr. Vann. He did spend greater than 50% of the time evaluating, examining and developing the plan of care. He agrees to the above HPI, physical exam, assessment and plan of care as dictated by the nurse practitioner.
[2024-08-12 14:04] VITALS: BMI 19.9
[2024-08-12] MEDS: diphenhydrAMINE 25 MG CAP PO PRN (21:55)
[2024-08-12] MEDS: IBUPROFEN 600 MG TAB PO PRN (21:55)
--- NOTE | 2024-08-13 07:31 | XR ---
EXAMINATION TYPE: XR chest 2V DATE OF EXAM: 08/13/2024 6:41 AM COMPARISON: None. CLINICAL INDICATION: Female, 69 years old with history of post right lower lobectomy, TECHNIQUE: XR chest 2V view(s) obtained. FINDINGS: The heart size is normal. The pulmonary vasculature is normal. No suspicious focal consolidation evident. Right apical pneumothorax and loculated right costophrenic angle pneumothorax remains present. Chest tube is unchanged. Small air-fluid levels within the right costophrenic angle IMPRESSION: 1. Stable right-sided loculated pneumothorax. Chest tube remains in position. [facility], Workstation: [id number], 08/13/2024 7:29 AM
[2024-08-13 08:00] LABS: African American GFR (CKD) >90 (>60 ml/min/1.73 sqM); Anion Gap 7 mmol/L; Blood Urea Nitrogen 35 mg/dL (7-17); Calcium 10.2 mg/dL (8.4-10.2); Carbon Dioxide 29 mmol/L (22-30); Chloride 96 mmol/L (98-107); Glucose 94 mg/dL (74-99); Non-African American GFR(CKD) 85 (>60 ml/min/1.73 sqM); Potassium 5.4 mmol/L (3.5-5.1); Sodium 132 mmol/L (137-145)
--- NOTE | 2024-08-13 08:24 | P.PN ---
Subjective Progress Note Date: 08/13/24 Principal diagnosis: Lung cancer right lower lobe, biopsy-proven adenocarcinoma. Previous medical history of bladder and bilateral kidney cancer since 2021 without chemo or radiation, currently receiving BCG treatments, chronic hyponatremia, asthma, previous tobacco dependence, COPD POD #6 robotic assisted thoracoscopic right lower lobectomy with mediastinal lymph node dissection Prolonged airleak greater than 5 days, somewhat expected due to patient's poor lung status preoperatively The patient was seen and examined this morning sitting up in recliner on the cardiac stepdown unit. States right sided expected postoperative pain mostly controlled with current medication regimen, denies shortness of breath. Remains in sinus rhythm, hemodynamically stable, oxygen saturation in the mid 90s on room air. She is able to achieve 1500 mL on incentive spirometry. Right pleural chest tube present to waterseal, airleak continues to be present at end expiration and with coughing. She has been ambulatory in the hallway without difficulty. Does complain of lack of bowel movement although she did have a small bowel movement on August 11, multiple medications ordered for bowel regimen. Chest x-ray reviewed. No other new concerns. Objective - Vital Signs Vital signs: Vital Signs Temp 97.8 F 08/13/24 03:51 Pulse 79 08/13/24 03:51 Resp 16 08/13/24 03:51 BP 145/85 08/13/24 03:51 Pulse Ox 95 08/13/24 03:51 FiO2 Intake & Output 08/12/24 08/13/24 08/13/24 18:59 06:59 18:59 Intake Total 480 Output Total 270 80 Balance 210 -80 Weight 52.7 kg 52.9 kg Intake: Oral 480 Output: Chest Tube Drainage 20 80 Right Posterior Chest 20 80 Urine 250 Other: Voiding Method Toilet Toilet # Voids 1 1 - Exam CONSTITUTIONAL: Appears mostly comfortable, cooperative, no acute distress RESPIRATORY: Lungs sounds diminished bilaterally. Respirations even, nonlabored. Currently on room air with oxygen saturation 95%. Able to achieve 1500 mL on incentive spirometry. Strong cough. CARDIOVASCULAR: S1, S2 present. Regular rate and rhythm, sinus rhythm on telemetry. Palpable peripheral pulses bilaterally. No edema present. No calf pain or tenderness noted. SCDs present. GASTROINTESTINAL: Abdomen soft, nontender, nondistended. Active bowel sounds present 4 quadrants. Tolerating diet. Positive bowel movement 08/11 GENITOURINARY: Continues to void INTEGUMENTARY: Skin is warm and dry with evidence of good perfusion NEUROLOGIC: Cranial nerves II through XII intact MUSKULOSKELETAL: Able to move all extremities, strength equal bilaterally, gait normal PSYCHIATRIC: Alert and oriented to person place and time, appropriate affect, intact judgment and insight INVASIVE LINES AND TUBES: Right pleural chest tube present to waterseal, air leak present at end expiration and with coughing - Allied health notes Allied health notes reviewed: nursing - Labs CBC & Chem 7: 08/11/24 05:24 08/13/24 07:18 Labs: Abnormal Lab Results - Last 24 Hours (Table) 08/13/24 Range/Units 07:18 Sodium 132 L (137-145) mmol/L Potassium 5.4 H (3.5-5.1) mmol/L Chloride 96 L (98-107) mmol/L BUN 35 H (7-17) mg/dL - Imaging and Cardiology Chest x-ray: report reviewed, image reviewed Assessment and Plan Assessment: Lung cancer right lower lobe, biopsy-proven adenocarcinoma, status post robotic assisted thoracoscopic right lower lobectomy with mediastinal lymph node dissection, final pathology pending Prolonged airleak greater than 5 days History of bladder and bilateral kidney cancer since 2021 without chemo or radiation, currently receiving BCG treatments Chronic hyponatremia Asthma Previous tobacco dependence, preoperative FEV1 82% of predicted Plan: Continue chest tube to waterseal, monitor for airleak resolution Encourage incentive spirometry 10 times every hour while awake. Bronchodilators per pulmonology Will monitor daily labs and x-rays Increase activity as tolerated Continue home medications Pain control per current medication regimen GI/DVT prophylaxis Continue bowel regimen More recommendations to follow
--- NOTE | 2024-08-13 13:54 | P.PN ---
Subjective Progress Note Date: 08/13/24 Principal diagnosis: Lung cancer. This is a pleasant 69-year-old female with a known history of smoking, chronic obstructive pulmonary disease, bladder cancer with metastasis to the kidney and was receiving BCG irrigations of the bladder. A screening CT scan of the chest revealed evidence of a 1.5 cm spiculated lesion in the right upper lobe. This was PET scan positive. She had undergone biopsies that was proven pulmonary adenocarcinoma. She was brought in today electively for a robotic assisted thoracoscopic right lower lobectomy. She is seen today in consultation in the recovery room. She is arousable. She is maintaining good O2 saturations in the 90s on a nonrebreather mask. Right sided chest tube is in place. Positive leak. He is afebrile. Hemodynamically stable. She will be educated regarding the use of the incentive spirometer. X-ray reveals a right sided chest tube in place. No significant pneumothorax noted. She has lactated Ringer's at 20 mL /h. Dilaudid for pain control. Zofran for nausea. Patient was evaluated today on 08/08/2024, patient is now postoperative day #1, remains in the ICU as an overflow, sitting up in the recliner, does not seem to be in any distress, does have some vague postoperative pain, expected, she is in sinus rhythm, hemodynamically stable, achieving 1500 cc on incentive spirometry. Right-sided pleural chest tube remains in place, it is on wall suction, positive air leak with expiration noted. Overall the patient is doing great and as good as expected. WBC count is 14.5 hemoglobin is 12.6 electrolytes are normal renal profile is normal patient was seen today on 08/09/2024, she is now postoperative day #2, doing well ambulating in the ICU, patient is doing great. Compliant with her incentive spirometry and achieving over 500 cc on incentive spirometry right- sided chest tube remains to waterseal, minimal air leak noted. Chest x-ray showed adequate expansion of her lungs, no evidence of pneumothorax. Seen today on 08/10/2024, patient is now postoperative day #3 robotic assisted thoracoscopic right lower lobectomy with mediastinal lymph node dissection, patient is doing well, ambulating in the ICU without any difficulty, patient is an overflow in the ICU. Chest x-ray is reassuring, she does have a trace of right apical pneumothorax, pathology from her surgery is pending. Patient is compliant with her incentive spirometry does not seem to be in any distress. WBC count is 7.5 hemoglobin 12.5 basic metabolic profile is normal and renal profile is normal calcium is 10.3 The patient is seen today August 11, 2024 in follow-up in the intensive care unit. Postoperative day #4. Is currently sitting up in a chair at the bedside. Awake and alert in no acute distress. Maintaining good O2 saturations in the 90s on room air. Stable right apical and right costophrenic angle hydr opneumothorax post lobectomy noted on chest x-ray. Right sided chest tube remains in good position. Minimal leak noted with forceful cough. Well with the incentive spirometer and pulling 1 to 1.5 L. Been up ambulating with assistance. No worsening shortness of breath, cough or congestion. No h emoptysis. White count 9.9. Hemoglobin 12.3. Platelets 269. Sodium 134. Potassium 4.8. Bicarb 34. BUN 33. Creatinine was 0.71. Glucose 103. She remains DuoNeb inhalations and Symbicort. Heparin for DVT prophylaxis. Today August 12, 2024 in follow-up in the intensive care unit. Postoperative day #5. She is currently sitting up in a chair. Awake and alert in no acute distress. Denies any worsening shortness of breath, cough or congestion. Her right sided chest tube remains to waterseal. There is still a air leak noted. Mostly with forceful cough. Chest x-ray shows stable loculated right base pneumothorax. Small right apical pneumothorax. No IV fluids. She is continued on DuoNeb inhalations, Symbicort. Heparin for DVT prophylaxis. She has been up ambulating in the hallway. She continues to work well with the incentive spirometer. Progress note dated August 13, 2024. 69-year-old female who was seen in the intensive care unit yesterday. She is seen today in room 367. The patient is currently on room air. She is not receiving any IV fluids. Right chest tube remains in place. The patient still has a leak. She was seen by cardiothoracic surgery today. Labs today include a sodium 132, potassium 5.4, chlorides 96, CO2 29, BUN 35, creatinine 0.73. Chest x-ray shows a stable right sided loculated pneumothorax. Objective - Vital Signs Vital signs: Vital Signs Temp 97.5 F L 08/13/24 11:32 Pulse 88 08/13/24 12:52 Resp 16 08/13/24 11:32 BP 128/84 08/13/24 11:32 Pulse Ox 97 08/13/24 11:32 FiO2 Intake & Output 08/12/24 08/13/24 08/13/24 18:59 06:59 18:59 Intake Total 480 358 Output Total 270 80 80 Balance 210 -80 278 Weight 52.7 kg 52.9 kg Intake: Oral 480 358 Output: Chest Tube Drainage 20 80 80 Right Posterior Chest 20 80 80 Urine 250 Other: Voiding Method Toilet Toilet Toilet # Voids 1 1 2 - Exam No acute distress, oriented 3. HEENT examination is grossly unremarkable. Mucous membranes are moist. No oral lesions. Neck supple. Full range of motion. No adenopathy thyromegaly or neck vein distention. Cardiovascular examination reveals regular rhythm rate. S1-S2 normal. No S3 or S4. No discernible murmur noted. Right sided chest tube remains in place. Lungs reveal clear breath sounds. Breath sounds are equal bilaterally. No adventitious lung sounds including wheezes rhonchi or crackles. Abdomen soft bowel sounds are heard. No masses or tenderness. Extremities are intact. No cyanosis clubbing or edema. Skin is without rash or lesion. Neurologic examination is brief but nonfocal. 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 Status post robotic assisted right lower lobectomy. Postoperative day #6. Moderate persistent chronic bronchial asthma, stable. 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 Status post transurethral resection of the bladder tumor. Chronic tobacco dependence. Plan: Plan dated August 13, 2024. The patient is seen today in room 367. She was in the intensive care unit yesterday. Labs, x-rays, and all medications are reviewed. The patient still has a leak, from that right sided chest tube. Cardiothoracic surgery is following. The patient continues with the incentive spirometer. We will continue to follow make recommendations along the way. Prognosis is guarded. No additional recommendations are made at this time. Time with Patient: Less than 30
[2024-08-13 18:52] LABS: HCT 40.3 % (34.0-46.0); HGB 12.7 gm/dL (11.4-16.0); Hypochromasia Slight; MCH 30.1 pg (25.0-35.0); MCHC 31.6 g/dL (31.0-37.0); MCV 95.5 fL (80.0-100.0); Mean Platelet Volume 9.6; Platelet Count 291 k/uL (150-450); RBC 4.22 m/uL (3.80-5.40); RDW 13.3 % (11.5-15.5); WBC 10.6 k/uL (3.8-10.6)
--- NOTE | 2024-08-14 07:54 | P.PN ---
Subjective Progress Note Date: 08/14/24 Principal diagnosis: Lung cancer right lower lobe, biopsy-proven adenocarcinoma. Past medical history significant for bladder and bilateral kidney cancer since 2021 without chemo or radiation, currently receiving BCG treatments, chronic hyponatremia, asthma, previous tobacco dependence, COPD. POD #7 robotic assisted thoracoscopic right lower lobectomy with mediastinal lymph node dissection Prolonged airleak greater than 5 days, somewhat expected due to patient's poor lung status preoperatively. The patient was seen and examined in follow-up today August 14, 2024 at her bedside on the third floor cardiac stepdown unit. She is currently sitting up to the bedside chair, is awake, alert, oriented x 3 and is in no acute apparent distress. She denies any complaints of shortness of breath at this time, although is complaining of some surgical type pain to her right chest tube insertion site, currently rating her pain 8 out of 10 on the pain scale. Oxygen saturations are 95% on room air and she is achieving 1500 mL on her incentive spirometry with encouragement. Right pleural chest tube remains in place to waterseal, intermittent airleak present with coughing. Draining thin serosanguineous drainage with 110 mL output in the last 8 hours and 150 mL output in the last 24 hours. The patient reports she has been up ambulating in the cardiac stepdown unit hallway independently and tolerating well. The patient reports she did have a small bowel movement yesterday August 13, 2024. Chest x-ray results reviewed. Pathology results remain pending. Objective - Vital Signs Vital signs: Vital Signs Temp 97.7 F 08/14/24 04:00 Pulse 78 08/14/24 04:00 Resp 18 08/14/24 04:00 BP 133/82 08/14/24 04:00 Pulse Ox 95 08/14/24 04:00 FiO2 Intake & Output 08/13/24 08/14/24 08/14/24 18:59 06:59 18:59 Intake Total 368 560 Output Total 90 110 Balance 278 450 Weight 52 kg Intake: IV 10 20 Invasive Line 4 10 20 Oral 358 540 Output: Chest Tube Drainage 90 110 Right Posterior Chest 90 110 Other: Voiding Method Toilet Toilet # Voids 2 5 # Bowel Movements 1 - Exam CONSTITUTIONAL: Appears comfortable, cooperative, no acute distress. RESPIRATORY: Lungs sounds diminished bilaterally. Respirations symmetrical, nonlabored. Currently on room air with oxygen saturation 95%. Able to achieve 1500 mL on her incentive spirometry. Strong cough. CARDIOVASCULAR: S1, S2 present. Regular rate and rhythm, sinus rhythm on telemetry, heart rate 95 bpm. Palpable peripheral pulses bilaterally. No edema present. No calf pain or tenderness noted. SCDs present. GASTROINTESTINAL: Abdomen soft, nontender, and nondistended. Active bowel sounds present 4 quadrants. Tolerating diet. Bowel movement August 13, 2024. GENITOURINARY: Continues to void. INTEGUMENTARY: Skin is warm and dry with no evidence of clubbing or cyanosis. Right chest incisions clean, dry and approximated. No redness or drainage present. NEUROLOGIC: Cranial nerves II through XII intact. No focal deficits. MUSKULOSKELETAL: Able to move all extremities, strength equal bilaterally, gait normal. PSYCHIATRIC: Alert and oriented to person place and time, appropriate affect, intact judgment and insight. INVASIVE LINES AND TUBES: Right pleural chest tube present to waterseal, inter mittent air leak present with coughing. Draining thin serosanguineous drainage with 110 mL output in the last 8 hours and 150 mL output in the last 24 hours. - Allied health notes Allied health notes reviewed: nursing - Labs CBC & Chem 7: 08/13/24 07:18 08/13/24 07:18 Labs: Abnormal Lab Results - Last 24 Hours (Table) 08/13/24 Range/Units 07:18 Sodium 132 L (137-145) mmol/L Potassium 5.4 H (3.5-5.1) mmol/L Chloride 96 L (98-107) mmol/L BUN 35 H (7-17) mg/dL - Imaging and Cardiology Chest x-ray: report reviewed, image reviewed Assessment and Plan Assessment: Lung cancer right lower lobe, biopsy-proven adenocarcinoma, status post robotic assisted thoracoscopic right lower lobectomy with mediastinal lymph node dissection, final pathology pending Prolonged airleak greater than 5 days History of bladder and bilateral kidney cancer since 2021 without chemo or radiation, currently receiving BCG treatments Chronic hyponatremia Asthma GERD on Nexium as an outpatient Osteoporosis Previous tobacco dependence, preoperative FEV1 82% of predicted Plan: Continue chest tube to waterseal, continue to monitor for airleak resolution. Encourage incentive spirometry 10 times every hour while awake. Bronchodilators per pulmonology. Will monitor daily labs and x-rays. Increase activity as tolerated. Continue home medications. Pain control per current medication regimen. GI/DVT prophylaxis. Continue bowel regimen. Continue to follow pathology results. More recommendations to follow based on patient's clinical course. Time with Patient: Less than 30
[2024-08-14] MEDS: KETOROLAC 15 MG/ML 1 ML VIAL IVP SCH (10:12)
--- NOTE | 2024-08-14 10:36 | XR ---
EXAMINATION TYPE: XR chest 2V DATE OF EXAM: 08/14/2024 6:27 AM COMPARISON: 08/13/2024 CLINICAL INDICATION: Female, 69 years old with history of Right lower lobectomy, TECHNIQUE: XR chest 2V view(s) obtained. FINDINGS: The heart size is normal. The pulmonary vasculature is normal. Persistent right apical pneumothorax. Right-sided chest tube remains in position. The loculated right costophrenic angle pneumothorax may be slightly smaller than comparison. Air-fluid levels present. IMPRESSION: 1. Persistent loculated pneumothorax right costophrenic angle similar to slightly smaller than compar mario. 2. Stable right apical pneumothorax [facility], , 08/14/2024 10:33 AM
--- NOTE | 2024-08-14 13:38 | P.PN ---
Subjective Progress Note Date: 08/14/24 Principal diagnosis: Lung cancer. This is a pleasant 69-year-old female with a known history of smoking, chronic obstructive pulmonary disease, bladder cancer with metastasis to the kidney and was receiving BCG irrigations of the bladder. A screening CT scan of the chest revealed evidence of a 1.5 cm spiculated lesion in the right upper lobe. This was PET scan positive. She had undergone biopsies that was proven pulmonary adenocarcinoma. She was brought in today electively for a robotic assisted thoracoscopic right lower lobectomy. She is seen today in consultation in the recovery room. She is arousable. She is maintaining good O2 saturations in the 90s on a nonrebreather mask. Right sided chest tube is in place. Positive leak. He is afebrile. Hemodynamically stable. She will be educated regarding the use of the incentive spirometer. X-ray reveals a right sided chest tube in place. No significant pneumothorax noted. She has lactated Ringer's at 20 mL /h. Dilaudid for pain control. Zofran for nausea. Patient was evaluated today on 08/08/2024, patient is now postoperative day #1, remains in the ICU as an overflow, sitting up in the recliner, does not seem to be in any distress, does have some vague postoperative pain, expected, she is in sinus rhythm, hemodynamically stable, achieving 1500 cc on incentive spirometry. Right-sided pleural chest tube remains in place, it is on wall suction, positive air leak with expiration noted. Overall the patient is doing great and as good as expected. WBC count is 14.5 hemoglobin is 12.6 electrolytes are normal renal profile is normal patient was seen today on 08/09/2024, she is now postoperative day #2, doing well ambulating in the ICU, patient is doing great. Compliant with her incentive spirometry and achieving over 500 cc on incentive spirometry right- sided chest tube remains to waterseal, minimal air leak noted. Chest x-ray showed adequate expansion of her lungs, no evidence of pneumothorax. Seen today on 08/10/2024, patient is now postoperative day #3 robotic assisted thoracoscopic right lower lobectomy with mediastinal lymph node dissection, patient is doing well, ambulating in the ICU without any difficulty, patient is an overflow in the ICU. Chest x-ray is reassuring, she does have a trace of right apical pneumothorax, pathology from her surgery is pending. Patient is compliant with her incentive spirometry does not seem to be in any distress. WBC count is 7.5 hemoglobin 12.5 basic metabolic profile is normal and renal profile is normal calcium is 10.3 The patient is seen today August 11, 2024 in follow-up in the intensive care unit. Postoperative day #4. Is currently sitting up in a chair at the bedside. Awake and alert in no acute distress. Maintaining good O2 saturations in the 90s on room air. Stable right apical and right costophrenic angle hydr opneumothorax post lobectomy noted on chest x-ray. Right sided chest tube remains in good position. Minimal leak noted with forceful cough. Well with the incentive spirometer and pulling 1 to 1.5 L. Been up ambulating with assistance. No worsening shortness of breath, cough or congestion. No h emoptysis. White count 9.9. Hemoglobin 12.3. Platelets 269. Sodium 134. Potassium 4.8. Bicarb 34. BUN 33. Creatinine was 0.71. Glucose 103. She remains DuoNeb inhalations and Symbicort. Heparin for DVT prophylaxis. Today August 12, 2024 in follow-up in the intensive care unit. Postoperative day #5. She is currently sitting up in a chair. Awake and alert in no acute distress. Denies any worsening shortness of breath, cough or congestion. Her right sided chest tube remains to waterseal. There is still a air leak noted. Mostly with forceful cough. Chest x-ray shows stable loculated right base pneumothorax. Small right apical pneumothorax. No IV fluids. She is continued on DuoNeb inhalations, Symbicort. Heparin for DVT prophylaxis. She has been up ambulating in the hallway. She continues to work well with the incentive spirometer. Progress note dated August 13, 2024. 69-year-old female who was seen in the intensive care unit yesterday. She is seen today in room 367. The patient is currently on room air. She is not receiving any IV fluids. Right chest tube remains in place. The patient still has a leak. She was seen by cardiothoracic surgery today. Labs today include a sodium 132, potassium 5.4, chlorides 96, CO2 29, BUN 35, creatinine 0.73. Chest x-ray shows a stable right sided loculated pneumothorax. Progress note dated August 14, 2024. 69-year-old female seen today in room 367. The patient is doing relatively well. She is on room air. She still has a right chest tube in place. She still has a bit of a leak. Clinically, she is very stable. She is anxious to get out of the hospital. She was seen by cardiothoracic surgery today. No new labs today as yet. Chest x-ray shows a persistent loculated pneumothorax on the right side, which is smaller, and a stable right apical pneumothorax. Objective - Vital Signs Vital signs: Vital Signs Temp 97.7 F 08/14/24 11:49 Pulse 93 08/14/24 11:49 Resp 18 08/14/24 11:49 BP 107/68 08/14/24 11:49 Pulse Ox 96 08/14/24 11:49 FiO2 Intake & Output 08/13/24 08/14/24 08/14/24 18:59 06:59 18:59 Intake Total 368 560 730 Output Total 90 110 41 Balance 278 450 689 Weight 52 kg Intake: IV 10 20 10 Invasive Line 4 10 20 10 Oral 358 540 720 Output: Chest Tube Drainage 90 110 41 Right Posterior Chest 90 110 41 Other: Voiding Method Toilet Toilet Toilet # Voids 2 5 2 # Bowel Movements 1 - Exam No acute distress, oriented 3. HEENT examination is grossly unremarkable. Mucous membranes are moist. No oral lesions. Neck supple. Full range of motion. No adenopathy thyromegaly or neck vein distention. Cardiovascular examination reveals regular rhythm rate. S1-S2 normal. No S3 or S4. No discernible murmur noted. Right sided chest tube remains in place. Lungs reveal clear breath sounds. Breath sounds are equal bilaterally. No adventitious lung sounds including wheezes rhonchi or crackles. Abdomen soft bowel sounds are heard. No masses or tenderness. Extremities are intact. No cyanosis clubbing or edema. Skin is without rash or lesion. Neurologic examination is brief but nonfocal. - Labs CBC & Chem 7: 08/13/24 07:18 08/13/24 07:18 Assessment and Plan Assessment: PET positive pulmonary adenocarcinoma of the right lower lobe. Status post robotic assisted right lower lobectomy. Postoperative day #7. Moderate persistent chronic bronchial asthma, stable. 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 Status post transurethral resection of the bladder tumor. Chronic tobacco dependence. Plan: Plan dated August 13, 2024. The patient is seen today in room 367. She was in the intensive care unit yesterday. Labs, x-rays, and all medications are reviewed. The patient still has a leak, from that right sided chest tube. Cardiothoracic surgery is following. The patient continues with the incentive spirometer. We will continue to follow make recommendations along the way. Prognosis is guarded. No additional recommendations are made at this time. Plan dated August 14, 2024. The patient is seen today again in room 367. She is on room air. She is not receiving any IV fluids. The right sided chest tube is still in place. She still has a bit of a leak. She was seen by cardiothoracic surgery. Possibly, the chest tube may come out tomorrow. Labs, x-rays, and all medications are reviewed. Clinically, the patient is stable from the pulmonary standpoint. Time with Patient: Less than 30
[2024-08-15 08:16] LABS: HCT 36.9 % (34.0-46.0); HGB 12.7 gm/dL (11.4-16.0); MCH 31.7 pg (25.0-35.0); MCHC 34.5 g/dL (31.0-37.0); MCV 91.8 fL (80.0-100.0); Mean Platelet Volume 7.9; Platelet Count 282 k/uL (150-450); RBC 4.02 m/uL (3.80-5.40); RDW 13.7 % (11.5-15.5); WBC 12.7 k/uL (3.8-10.6)
[2024-08-15 08:37] LABS: African American GFR (CKD) >90 (>60 ml/min/1.73 sqM); Anion Gap 8 mmol/L; Blood Urea Nitrogen 34 mg/dL (7-17); Calcium 9.8 mg/dL (8.4-10.2); Carbon Dioxide 29 mmol/L (22-30); Chloride 93 mmol/L (98-107); Glucose 93 mg/dL (74-99); Non-African American GFR(CKD) 87 (>60 ml/min/1.73 sqM); Potassium 5.4 mmol/L (3.5-5.1); Sodium 130 mmol/L (137-145)
[2024-08-15 08:39] VITALS: BP 119/83; RESP 18; TEMP 97.5
--- NOTE | 2024-08-15 08:45 | P.PN ---
Subjective Progress Note Date: 08/15/24 Principal diagnosis: Lung cancer right lower lobe, biopsy-proven adenocarcinoma. Past medical history significant for bladder and bilateral kidney cancer since 2021 without chemo or radiation, currently receiving BCG treatments, chronic hyponatremia, asthma, previous tobacco dependence, COPD. POD #8 robotic assisted thoracoscopic right lower lobectomy with mediastinal lymph node dissection Prolonged airleak greater than 5 days, somewhat expected due to patient's poor lung status preoperatively. The patient was seen and examined in follow-up today August 15, 2024 at her bedside on the third floor cardiac stepdown unit. The patient is currently sitting up to the bedside chair, is awake, alert, oriented x 3 and is in no acute apparent distress. She denies any complaints of shortness of breath, and states that her pain is much better controlled today from yesterday. She currently rates her pain 4-5 out of 10 on the pain scale. She has been up ambulating in the cardiac stepdown unit hallway independently and tolerating well. Oxygen saturations are 96% on room air and she is achieving 1500 mL on her incentive spirometry with encouragement. Right pleural chest tube remains in place to waterseal. No air leak is present. Draining thin serosanguineous drainage with 200 mL output in the last 24 hours. Laboratory and chest x-ray results were reviewed. Surgical pathology results remains pending. Objective - Vital Signs Vital signs: Vital Signs Temp 97.5 F L 08/15/24 08:00 Pulse 87 08/15/24 08:00 Resp 18 08/15/24 08:00 BP 119/83 08/15/24 08:00 Pulse Ox 100 08/15/24 08:00 FiO2 Intake & Output 08/14/24 08/15/24 08/15/24 18:59 06:59 18:59 Intake Total 858 560 Output Total 80 110 Balance 778 450 Weight 51.6 kg Intake: IV 20 20 Invasive Line 4 20 20 Oral 838 540 Output: Chest Tube Drainage 80 110 Right Posterior Chest 80 110 Other: Voiding Method Toilet Toilet # Voids 2 - Exam CONSTITUTIONAL: Appears comfortable, cooperative, no acute distress. RESPIRATORY: Lungs sounds diminished bilaterally. Respirations symmetrical, nonlabored. Currently on room air with oxygen saturation 96%. Able to achieve 1500 mL on her incentive spirometry. Strong cough. CARDIOVASCULAR: S1, S2 present. Regular rate and rhythm, sinus rhythm on telemetry, heart rate 95 bpm. Palpable peripheral pulses bilaterally. No edema present. No calf pain or tenderness noted. SCDs present. GASTROINTESTINAL: Abdomen soft, nontender, and nondistended. Active bowel sounds present 4 quadrants. Tolerating diet. Bowel movement August 13, 2024. GENITOURINARY: Continues to void. INTEGUMENTARY: Skin is warm and dry with no evidence of clubbing or cyanosis. Right chest incisions clean, dry and approximated. No redness or drainage present. NEUROLOGIC: Cranial nerves II through XII intact. No focal deficits. MUSKULOSKELETAL: Able to move all extremities, strength equal bilaterally, gait normal. PSYCHIATRIC: Alert and oriented to person place and time, appropriate affect, intact judgment and insight. INVASIVE LINES AND TUBES: Right pleural chest tube present to waterseal, no air leak is present. Draining thin serosanguineous drainage with 200 mL output in the last 24 hours. - Allied health notes Allied health notes reviewed: nursing - Labs CBC & Chem 7: 08/15/24 08:03 08/15/24 08:03 Labs: Abnormal Lab Results - Last 24 Hours (Table) 08/15/24 08/15/24 Range/Units 08:03 08:03 WBC 12.7 H (3.8-10.6) k/uL Sodium 130 L (137-145) mmol/L Potassium 5.4 H (3.5-5.1) mmol/L Chloride 93 L (98-107) mmol/L BUN 34 H (7-17) mg/dL - Imaging and Cardiology Chest x-ray: report reviewed, image reviewed Assessment and Plan Assessment: Lung cancer right lower lobe, biopsy-proven adenocarcinoma, status post robotic assisted thoracoscopic right lower lobectomy with mediastinal lymph node dissection, final surgical pathology pending Prolonged airleak greater than 5 days, resolved History of bladder and bilateral kidney cancer since 2021 without chemo or radiation, currently receiving BCG treatments Chronic hyponatremia Asthma GERD on Nexium as an outpatient Osteoporosis Previous tobacco dependence, preoperative FEV1 82% of predicted Plan: We will remove her right pleural chest tube today. We will repeat a chest x-ray later today, and possibly discharge home today. Encourage incentive spirometry 10 times every hour while awake. Bronchodilators per pulmonology. Will monitor daily labs and x-rays. Increase activity as tolerated. Continue home medications. Pain control per current medication regimen. GI/DVT prophylaxis. Continue bowel regimen. Continue to follow pathology results. More recommendations to follow based on patient's clinical course. Time with Patient: Greater than 30
[2024-08-15] MEDS: MAGNESIUM HYDROXIDE 2,400 MG/30 ML CUP PO PRN (08:50)
[2024-08-15 12:22] VITALS: PULSE 96
--- NOTE | 2024-08-15 13:15 | XR ---
EXAMINATION TYPE: XR chest 1V portable DATE OF EXAM: 08/15/2024 7:03 AM COMPARISON: 08/14/2024 CLINICAL INDICATION: Female, 69 years old with history of s/p right lower lobectomy, TECHNIQUE: XR chest 1V portable view(s) obtained. FINDINGS: The heart size is normal. The pulmonary vasculature is normal. The lungs are clear. There is a small loculated right costophrenic angle pneumothorax. Previous righ t apical clearly identified currently. IMPRESSION: 1. Small loculated right costophrenic angle pneumothorax. 2. Right-sided chest tube remains in position [facility], , 08/15/2024 1:13 PM
--- NOTE | 2024-08-15 13:22 | XR ---
EXAMINATION TYPE: XR chest 1V portable DATE OF EXAM: 08/15/2024 1:14 PM COMPARISON: 08/15/2024 earlier exam CLINICAL INDICATION: Female, 69 years old with history of Post chest tube removal, TECHNIQUE: XR chest 1V portable view(s) obtained. FINDINGS: The heart size is normal. The pulmonary vasculature is normal. The lungs are clear. Small loculated right costophrenic angle pneumothorax is present. This is smaller than comparison. Sm all right apical pneumothorax remains present similar to comparison. Prior chest tube is been removed . IMPRESSION: 1. Diminished size of residual right apical and right costophrenic angle pneumothoraces post chest tu be removal. [facility], , 08/15/2024 1:20 PM
--- NOTE | 2024-08-15 14:31 | P.DS ---
Providers Date of admission: 08/07/24 09:14 Expected date of discharge: 08/15/24 Attending physician: Christ Murrell Consults: 08/07/24 17:22 Consult Physician Routine Consulting Provider: Chetan Serrano Reason/Comments: post lobectomy Do you want consulting provider notified?: Already Contacted Primary care physician: Stated None Hospital Course: FINAL DIAGNOSIS: Lung cancer right lower lobe, biopsy-proven adenocarcinoma, status post robotic assisted thoracoscopic right lower lobectomy with mediastinal lymph node dissection, final surgical pathology pending Prolonged airleak greater than 5 days, resolved History of bladder and bilateral kidney cancer since 2021 without chemo or radiation, currently receiving BCG treatments Chronic hyponatremia Asthma GERD on Nexium as an outpatient Osteoporosis Previous tobacco dependence, preoperative FEV1 82% of predicted PRINCIPAL PROCEDURE: 1. Robotic assisted thoracoscopic right lower lobectomy with mediastinal lymph node dissection HISTORY OF PRESENT ILLNESS: This is a 69-year-old female patient who follows on an outpatient basis with Viviane Urban nurse practitioner for her primary care and with Dr. LYUDMILA Lenz for her pulmonary care. The patient has a history of bladder cancer which had spread to the kidney. She is being treated for the cancer and she is undergoing BCG irrigations of the bladder. Recently she had a screening CT scan of the chest due to her history of smoking and a family history of lung cancer. The CT scan of the chest demonstrated a 1.5 cm in diameter right lower lobe spiculated mass in the superior segment. Due to the right lower lobe mass the patient was recommended to undergo a PET CT scan which was positive. There was no evidence of metastasis on either PET or CT with no significant adenopathy present. For further evaluation the patient underwent a CT-guided bronchoscopy, which was positive for adenocarcinoma and she was subsequently referred to Dr. Christ Murrell for evaluation for lung resection. The patient also underwent a pulmonary function test which showed an FEV1 of 1.89 L, which was 80% predicted value, FVC of 3 L, which is 100% of predicted value and a DLCO of 15.6, which is 64% of predicted value. Dr. Murrell met with the patient, reviewed the above mentioned study results, treatment options were discussed including robotic assisted thoracoscopic right lower lobectomy with mediastinal lymph node dissection. The usual preoperative course was outlined with the patient by Dr. Murrell, and knowing and understanding the risks of surgery they patient wished to proceed with the surgical option. HOSPITAL COURSE: The patient was brought to the hospital on 08/07/24, taken to the preoperative area, prepared in the usual fashion, and subsequently taken to the operating room where Dr. Murrell performed a robotic assisted thoracoscopic right lower lobectomy with mediastinal lymph node dissection. Upon completion of surgery the patient was extubated and taken to the recovery room for further monitoring. She was eventually admitted to 3 S. cardiac stepdown unit. She was monitored daily and once airleak was absent her chest tube was discontinued without incident. Follow-up chest x-ray was stable. Her oxygen was titrated down, she was tolerating oral diet, her pain was controlled, and she was ready to be discharged to home on postoperative day #8. She received written and verbal instruction regarding her medications, activity restrictions, signs and symptoms requiring physician notification, and follow-up appointments. Plan - Discharge Summary Discharge Rx Participant: No New Discharge Prescriptions: Continue Latanoprost/Pf [Latanoprost 0.005% Eye Drop] 1 drop BOTH EYES HS Esomeprazole Magnesium [NexIUM] 40 mg PO QAM Brimonidine Tartrate [Alphagan P 0.2% Ophth Soln] 1 drops BOTH EYES BID Multivitamins, Thera [Multivitamin (formulary)] 1 tab PO DAILY Albuterol Inhaler [Ventolin Hfa Inhaler] 1 - 2 puff INHALATION Q6H PRN PRN Reason: sob Denosumab [Prolia] 60 mg SQ Q180D Bacillus Calmette-Gurin (Bcg) 1 dose INTRAVESIC DIRECTED polyethylene glycoL 3350 [Miralax] 17 gm PO DAILY PRN #0 PRN Reason: Constipation Fluticasone Propion/Salmeterol [Advair Hfa 45-21 Mcg Inhaler] 2 puff INHALATION BID Sodium Chloride Tab 1 gm PO TID Calcium Carbonate/Vitamin D3 [Calcium 600-Vit D3 10 mcg (400 Iu)] 1 each PO BID Albuterol Nebulized [Ventolin Nebulized] 2.5 mg INHALATION Q6H PRN PRN Reason: sob Acetaminophen [Tylenol Extra Strength] 500 - 1,000 mg PO Q6H PRN PRN Reason: Pain Melatonin 4 - 5 mg PO HS Discontinued Ciprofloxacin HCl [Cipro] 250 mg PO Q12HR Discharge Medication List Brimonidine Tartrate [Alphagan P 0.2% Ophth Soln] 1 drops BOTH EYES BID 12/11/22 [History] Esomeprazole Magnesium [NexIUM] 40 mg PO QAM 12/11/22 [History] Fluticasone Propion/Salmeterol [Advair Hfa 45-21 Mcg Inhaler] 2 puff INHALATION BID 12/11/22 [History] Latanoprost/Pf [Latanoprost 0.005% Eye Drop] 1 drop BOTH EYES HS 12/11/22 [History] Sodium Chloride Tab 1 gm PO TID 01/03/23 [History] Calcium Carbonate/Vitamin D3 [Calcium 600-Vit D3 10 mcg (400 Iu)] 1 each PO BID 05/28/24 [History] Multivitamins, Thera [Multivitamin (formulary)] 1 tab PO DAILY 05/28/24 [History] Acetaminophen [Tylenol Extra Strength] 500 - 1,000 mg PO Q6H PRN 08/01/24 [History] Albuterol Inhaler [Ventolin Hfa Inhaler] 1 - 2 puff INHALATION Q6H PRN 08/01/24 [History] Albuterol Nebulized [Ventolin Nebulized] 2.5 mg INHALATION Q6H PRN 08/01/24 [History] Bacillus Calmette-Gurin (Bcg) 1 dose INTRAVESIC DIRECTED 08/01/24 [History] Denosumab [Prolia] 60 mg SQ Q180D 08/01/24 [History] Melatonin 4 - 5 mg PO HS 08/04/24 [History] polyethylene glycoL 3350 [Miralax] 17 gm PO DAILY PRN #0 08/15/24 [Rx] Follow up Appointment(s)/Referral(s): [facility], [NON-STAFF] - 1 Week Christ Murrell MD [STAFF PHYSICIAN] - 08/21/24 2:00 pm Triston Lenz MD [STAFF PHYSICIAN] - 08/19/24 10:45 am Brianda Bassett MD [STAFF PHYSICIAN] - 08/26/24 9:30 am Viviane Urban NPC [REFERRING] - As Needed Activity/Diet/Wound Care/Special Instructions: DISCHARGE INSTRUCTIONS: 1. No driving for 2 weeks, or until physician gives their ok. 2. No lifting, pushing, or pulling more than 10 pounds for 2 weeks. The physician will advise of any restriction changes. 3. Continue pain control per as needed orders. Alternate acetaminophen (Tylenol) and ibuprofen (Motrin/Advil) for pain. 4. Continue with incentive spirometry and splinting until otherwise directed by the physician. 5. Leave chest tube dressing for 48 hours. After that, remove all dressings and shower daily. 6. Routine incision care. No powders, lotions, ointments on incisions. 7. Please call surgeon/CABLE INSTALLATION TECHNICIAN for temp greater than 101 F or purulent drainage from incisions. 8. Smoking cessation counseling and program information provided. Quitting smoking is the most important step you can take to improve your health. For additional information and assistance to quit smoking, please call the [place] tobacco quit line (6-719-IZZV-NOW/ ) or online: [email or web address].[email or web address]-[email or web address] it-[email or web address] Discharge Disposition: HOME WITH HOME HEALTH SERVICES
--- NOTE | 2024-08-15 14:31 | P.PN ---
Subjective Progress Note Date: 08/15/24 Principal diagnosis: Lung cancer. This is a pleasant 69-year-old female with a known history of smoking, chronic obstructive pulmonary disease, bladder cancer with metastasis to the kidney and was receiving BCG irrigations of the bladder. A screening CT scan of the chest revealed evidence of a 1.5 cm spiculated lesion in the right upper lobe. This was PET scan positive. She had undergone biopsies that was proven pulmonary adenocarcinoma. She was brought in today electively for a robotic assisted thoracoscopic right lower lobectomy. She is seen today in consultation in the recovery room. She is arousable. She is maintaining good O2 saturations in the 90s on a nonrebreather mask. Right sided chest tube is in place. Positive leak. He is afebrile. Hemodynamically stable. She will be educated regarding the use of the incentive spirometer. X-ray reveals a right sided chest tube in place. No significant pneumothorax noted. She has lactated Ringer's at 20 mL /h. Dilaudid for pain control. Zofran for nausea. Patient was evaluated today on 08/08/2024, patient is now postoperative day #1, remains in the ICU as an overflow, sitting up in the recliner, does not seem to be in any distress, does have some vague postoperative pain, expected, she is in sinus rhythm, hemodynamically stable, achieving 1500 cc on incentive spirometry. Right-sided pleural chest tube remains in place, it is on wall suction, positive air leak with expiration noted. Overall the patient is doing great and as good as expected. WBC count is 14.5 hemoglobin is 12.6 electrolytes are normal renal profile is normal patient was seen today on 08/09/2024, she is now postoperative day #2, doing well ambulating in the ICU, patient is doing great. Compliant with her incentive spirometry and achieving over 500 cc on incentive spirometry right- sided chest tube remains to waterseal, minimal air leak noted. Chest x-ray showed adequate expansion of her lungs, no evidence of pneumothorax. Seen today on 08/10/2024, patient is now postoperative day #3 robotic assisted thoracoscopic right lower lobectomy with mediastinal lymph node dissection, patient is doing well, ambulating in the ICU without any difficulty, patient is an overflow in the ICU. Chest x-ray is reassuring, she does have a trace of right apical pneumothorax, pathology from her surgery is pending. Patient is compliant with her incentive spirometry does not seem to be in any distress. WBC count is 7.5 hemoglobin 12.5 basic metabolic profile is normal and renal profile is normal calcium is 10.3 The patient is seen today August 11, 2024 in follow-up in the intensive care unit. Postoperative day #4. Is currently sitting up in a chair at the bedside. Awake and alert in no acute distress. Maintaining good O2 saturations in the 90s on room air. Stable right apical and right costophrenic angle hydr opneumothorax post lobectomy noted on chest x-ray. Right sided chest tube remains in good position. Minimal leak noted with forceful cough. Well with the incentive spirometer and pulling 1 to 1.5 L. Been up ambulating with assistance. No worsening shortness of breath, cough or congestion. No h emoptysis. White count 9.9. Hemoglobin 12.3. Platelets 269. Sodium 134. Potassium 4.8. Bicarb 34. BUN 33. Creatinine was 0.71. Glucose 103. She remains DuoNeb inhalations and Symbicort. Heparin for DVT prophylaxis. Today August 12, 2024 in follow-up in the intensive care unit. Postoperative day #5. She is currently sitting up in a chair. Awake and alert in no acute distress. Denies any worsening shortness of breath, cough or congestion. Her right sided chest tube remains to waterseal. There is still a air leak noted. Mostly with forceful cough. Chest x-ray shows stable loculated right base pneumothorax. Small right apical pneumothorax. No IV fluids. She is continued on DuoNeb inhalations, Symbicort. Heparin for DVT prophylaxis. She has been up ambulating in the hallway. She continues to work well with the incentive spirometer. Progress note dated August 13, 2024. 69-year-old female who was seen in the intensive care unit yesterday. She is seen today in room 367. The patient is currently on room air. She is not receiving any IV fluids. Right chest tube remains in place. The patient still has a leak. She was seen by cardiothoracic surgery today. Labs today include a sodium 132, potassium 5.4, chlorides 96, CO2 29, BUN 35, creatinine 0.73. Chest x-ray shows a stable right sided loculated pneumothorax. Progress note dated August 14, 2024. 69-year-old female seen today in room 367. The patient is doing relatively well. She is on room air. She still has a right chest tube in place. She still has a bit of a leak. Clinically, she is very stable. She is anxious to get out of the hospital. She was seen by cardiothoracic surgery today. No new labs today as yet. Chest x-ray shows a persistent loculated pneumothorax on the right side, which is smaller, and a stable right apical pneumothorax. Progress note dated August 15, 2024. 69-year-old female seen today in room 367. The patient's chest tube has been removed. Her repeat chest x-ray, does not show an obvious pneumothorax. She may be discharged home possibly later today. She is on room air. She is not receiving any IV fluids. She has no specific complaints, relating to the lungs. She does complain of some diarrhea, and the fact that she has a poor appetite. Labs today include a white count 12.7, hemoglobin 12.7, hematocrit 36.9, and a platelet count of 282,000. Sodium 130, potassium 5.4, chloride 93, CO2 29, BUN 34, creatinine 0.72. Calcium is 9.8. Glucose is 93. X-ray, as reported by radiology suggested diminished size of residual right apical and right costophrenic angle pneumothoraces, after chest tube removal. Objective - Vital Signs Vital signs: Vital Signs Temp 97.5 F L 08/15/24 08:00 Pulse 96 08/15/24 12:32 Resp 18 08/15/24 13:38 BP 119/83 08/15/24 08:00 Pulse Ox 100 08/15/24 08:00 FiO2 Intake & Output 08/14/24 08/15/24 08/15/24 18:59 06:59 18:59 Intake Total 858 560 Output Total 80 110 Balance 778 450 Weight 51.6 kg Intake: IV 20 20 Invasive Line 4 20 20 Oral 838 540 Output: Chest Tube Drainage 80 110 Right Posterior Chest 80 110 Other: Voiding Method Toilet Toilet # Voids 2 - Exam No acute distress, oriented 3. HEENT examination is grossly unremarkable. Mucous membranes are moist. No oral lesions. Neck supple. Full range of motion. No adenopathy thyromegaly or neck vein distention. Cardiovascular examination reveals regular rhythm rate. S1-S2 normal. No S3 or S4. No discernible murmur noted. Right sided chest tube remains in place. Lungs reveal clear breath sounds. Breath sounds are equal bilaterally. No adventitious lung sounds including wheezes rhonchi or crackles. Abdomen soft bowel sounds are heard. No masses or tenderness. Extremities are intact. No cyanosis clubbing or edema. Skin is without rash or lesion. Neurologic examination is brief but nonfocal. - Labs CBC & Chem 7: 08/15/24 08:03 08/15/24 08:03 Labs: Abnormal Lab Results - Last 24 Hours (Table) 08/15/24 08/15/24 Range/Units 08: 08:03 WBC 12.7 H (3.8-10.6) k/uL Sodium 130 L (137-145) mmol/L Potassium 5.4 H (3.5-5.1) mmol/L Chloride 93 L (98-107) mmol/L BUN 34 H (7-17) mg/dL Assessment and Plan Assessment: PET positive pulmonary adenocarcinoma of the right lower lobe. Status post robotic assisted right lower lobectomy. Postoperative day #8. Moderate persistent chronic bronchial asthma, stable. 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 Status post transurethral resection of the bladder tumor. Chronic tobacco dependence. Plan: Plan dated August 13, 2024. The patient is seen today in room 367. She was in the intensive care unit yesterday. Labs, x-rays, and all medications are reviewed. The patient still has a leak, from that right sided chest tube. Cardiothoracic surgery is following. The patient continues with the incentive spirometer. We will continue to follow make recommendations along the way. Prognosis is guarded. No additional recommendations are made at this time. Plan dated August 14, 2024. The patient is seen today again in room 367. She is on room air. She is not receiving any IV fluids. The right sided chest tube is still in place. She still has a bit of a leak. She was seen by cardiothoracic surgery. Possibly, the chest tube may come out tomorrow. Labs, x-rays, and all medications are reviewed. Clinically, the patient is stable from the pulmonary standpoint. Plan dated August 15, 2024. The patient's chest tube has been removed. The follow-up chest x-ray has been reviewed by me. From my perspective, the patient has either no pneumothorax, or very minimal pneumothoraces. Labs, x-rays, and medications are reviewed. From my perspective, the patient could be considered for discharge. Will leave that up to the cardiothoracic service. No additional recommendations are made. Prognosis is guarded. Time with Patient: Less than 30
== END 2024-08-15 16:07 | disposition home health service (06) | DRG 164 ==
LOC: 2ORMAIN 09:14 → 2SICU 15:09 → 3SCARD 08-12 11:54
PROVIDERS: ADMIT Thoracic Surgery (Cardiothoracic Vascular Surgery); ATTEND Thoracic Surgery (Cardiothoracic Vascular Surgery)
PROC: 07B74ZX Excision of Thorax Lymphatic, Percutaneous Endoscopic Approach, Diagnostic (ICD-10-PCS; 2024-08-07)
PROC: 3E0T3BZ Introduction of Anesthetic Agent into Peripheral Nerves and Plexi, Percutaneous Approach (ICD-10-PCS; 2024-08-07)
PROC: 8E0W4CZ Robotic Assisted Procedure of Trunk Region, Percutaneous Endoscopic Approach (ICD-10-PCS; 2024-08-07)
PROC: 0BTF4ZZ Resection of Right Lower Lung Lobe, Percutaneous Endoscopic Approach (ICD-10-PCS; principal; 2024-08-07 10:55)
DX: C34.31 Malignant neoplasm of lower lobe, right bronchus or lung (principal); C66.9 Malignant neoplasm of unspecified ureter; C79.00 Secondary malignant neoplasm of unspecified kidney and renal pelvis; E87.1 Hypo-osmolality and hyponatremia; J93.82 Other air leak; J94.8 Other specified pleural conditions; C67.9 Malignant neoplasm of bladder, unspecified; J44.89 Other specified chronic obstructive pulmonary disease; G89.18 Other acute postprocedural pain; H91.90 Unspecified hearing loss, unspecified ear; K21.9 Gastro-esophageal reflux disease without esophagitis; M81.0 Age-related osteoporosis without current pathological fracture; Z85.528 Personal history of other malignant neoplasm of kidney; Z80.1 Family history of malignant neoplasm of trachea, bronchus and lung; Z85.51 Personal history of malignant neoplasm of bladder; Z87.891 Personal history of nicotine dependence
CPT/HCPCS: 64999; 71045; 71046; 80048; 85025; 85027; 88305; 88309; 88313; 94640

== ENCOUNTER 2024-08-20 09:43 | Emergency (ER) | payer MEDICARE, OTHER ==
[2024-08-20 09:50] VITALS: TEMP 97.5
--- NOTE | 2024-08-20 10:24 | ED ---
General Adult HPI - General Chief complaint: Recheck/Abnormal Lab/Rx Stated complaint: Back Pain Time Seen by Provider: 08/20/24 09:52 Source: patient, RN notes reviewed, old records reviewed Mode of arrival: ambulatory Limitations: no limitations - History of Present Illness Initial comments: 69-year-old female presenting with mid back pain. Patient is 2 weeks postop right lobectomy for lung CA. Patient states she is healing well from the surgery. She has had persistent mid back pain since the time of discharge. She states that the IV medication she was on worked well for her pain but the tramadol was prescribed at discharge has not been adequate to control this pain. She denies trauma. Denies difficulty breathing. Denies fever. - Related Data Home Medications Medication Instructions Recorded Confirmed Brimonidine Tartrate [Alphagan P 1 drops BOTH EYES BID 12/11/22 08/07/24 0.2% Ophth Soln] Esomeprazole Magnesium [NexIUM] 40 mg PO QAM 12/11/22 08/07/24 Fluticasone Propion/Salmeterol 2 puff INHALATION BID 12/11/22 08/07/24 [Advair Hfa 45-21 Mcg Inhaler] Latanoprost/Pf [Latanoprost 0.005% 1 drop BOTH EYES HS 12/11/22 08/07/24 Eye Drop] Sodium Chloride Tab 1 gm PO TID 01/03/23 08/07/24 Calcium Carbonate/Vitamin D3 1 each PO BID 05/28/24 08/07/24 [Calcium 600-Vit D3 10 mcg (400 Iu)] Multivitamins, Thera [Multivitamin 1 tab PO DAILY 05/28/24 08/07/24 (formulary)] Acetaminophen [Tylenol Extra 500 - 1,000 mg PO Q6H PRN 08/01/24 08/07/24 Strength] Albuterol Inhaler [Ventolin Hfa 1 - 2 puff INHALATION Q6H PRN 08/01/24 08/07/24 Inhaler] Albuterol Nebulized [Ventolin 2.5 mg INHALATION Q6H PRN 08/01/24 08/07/24 Nebulized] Bacillus Calmette-Gurin (Bcg) 1 dose INTRAVESIC DIRECTED 08/01/24 08/07/24 Denosumab [Prolia] 60 mg SQ Q180D 08/01/24 08/07/24 Melatonin 4 - 5 mg PO HS 08/04/24 08/07/24 Previous Rx's Medication Instructions Recorded polyethylene glycoL 3350 [Miralax] 17 gm PO DAILY PRN #0 08/15/24 traMADol HCl [Ultram] 50 mg PO Q6HR PRN 3 Days #12 tab 08/18/24 HYDROcodone/APAP 5-325MG [[place] 1 tab PO Q6HR PRN #12 tab 08/20/24 5-325] Allergies Allergy/AdvReac Type Severity Reaction Status Date / Time prednisone Allergy severe Verified 08/20/24 09:50 Rash/Hives,irregular heart rate,anxiety propoxyphene [From Darvon] Allergy severe Verified 08/20/24 09:50 body rash Review of Systems ROS Statement: Those systems with pertinent positive or pertinent negative responses have been documented in the HPI. ROS Other: All systems not noted in ROS Statement are negative. Past Medical History Past Medical History: Asthma, Cancer, COPD, Eye Disorder, GERD/Reflux, Hearing Disorder / Deafness, Osteoarthritis (OA), Renal Disease Additional Past Medical History / Comment(s): Glaucoma, bladder and kidney cancer. sodium issues- maintaining normal levels (Takes supplement). pt states kidneys are functioning well. long standing spot on rll. - had more uptake with last pet scan History of Any Multi-Drug Resistant Organisms: None Reported Past Surgical History: Hysterectomy, Orthopedic Surgery Additional Past Surgical History / Comment(s): tailbone removal, biopsy of kidney and tumor removal on the bladder. lft knee arthrosopy, TURBT, BIILATERAL URETEROSCOPY W/ LASER ABLATION OF RENAL TUMOR Past Anesthesia/Blood Transfusion Reactions: Postoperative Nausea & Vomiting (PONV) Additional Past Anesthesia/Blood Transfusion Reaction / Comment(s): Severe PONV, which lead to hyponatremia after last surgery. basically just nausea not alot of vomiting. lack of appetite. no blood tx hx Past Psychological History: Anxiety Smoking Status: Former smoker Past Alcohol Use History: None Reported Past Drug Use History: None Reported - Past Family History Sister(s) Family Medical History: Cancer Additional Family Medical History / Comment(s): Lung cancer, . Father Family Medical History: Coronary Artery Disease (CAD), Diabetes Mellitus Mother Family Medical History: Diabetes Mellitus, Thyroid Disorder General Exam Limitations: no limitations General appearance: alert, in no apparent distress Head exam: Present: atraumatic, normocephalic Eye exam: Present: normal appearance, PERRL ENT exam: Present: normal exam Neck exam: Present: normal inspection. Absent: tenderness, meningismus Respiratory exam: Present: normal lung sounds bilaterally (Incisions are well- healed no signs of infection), other. Absent: respiratory distress Cardiovascular Exam: Present: regular rate, normal rhythm GI/Abdominal exam: Absent: distended Back exam: Present: vertebral tenderness (Thoracic) Neurological exam: Present: alert, oriented X3 Psychiatric exam: Present: normal affect, normal mood Skin exam: Present: warm, dry, intact. Absent: cyanosis, diaphoretic Course Vital Signs 08/20/24 09:47 Temperature 97.5 F L Pulse Rate 96 Respiratory 16 Rate Blood Pressure 158/94 O2 Sat by Pulse 97 Oximetry Medical Decision Making - Medical Decision Making Was pt. sent in by a medical professional or institution (, PA, COMMERCIAL LINES UNDERWRITER, urgent care, hospital, or long term...) When possible be specific @ -No Did you speak to anyone other than the patient for history (EMS, parent, family, police, friend...)? What history was obtained from this source @ -No Did you review nursing and triage notes (agree or disagree)? Why? @ -I reviewed and agree with nursing and triage notes Were old charts reviewed (outside hosp., previous admission, EMS record, old EKG, old radiological studies, urgent care reports/EKG's, long term records)? Report findings @ -No old charts were reviewed Differential Diagnosis: Vertebral compression fracture, musculoskeletal back pain, renal colic, pneumothorax, pleurisy, postoperative pain. EKG interpreted by me (3pts min.). @ -As above X-rays interpreted by me (1pt min.). @ -Chest x-ray showing a right-sided pleural effusion, no pneumothorax, x-ray of the thoracic spine negative for fracture. CT interpreted by me (1pt min.). @ -None done U/S interpreted by me (1pt. min.). @ -None done What testing was considered but not performed or refused? (CT, X-rays, U/S, labs)? Why? @ -None What meds were considered but not given or refused? Why? @ -None Did you discuss the management of the patient with other professionals (pr ofessionals i.e. , PA, COMMERCIAL LINES UNDERWRITER, lab, RT, psych nurse, social media project manager, mud analysis operator, teacher, [employer] officer, bilingual case manager)? Give summary @ -No Was smoking cessation discussed for >3mins.? @ -No Was critical care preformed (if so, how long)? @ -No Were there social determinants of health that impacted care today? How? (Homelessness, low income, unemployed, alcoholism, drug addiction, transportation, low edu. Level, literacy, decrease access to med. care, senior care, rehab)? @ -No Was there de-escalation of care discussed even if they declined (Discuss DNR or withdrawal of care, Hospice)? DNR status @ -No What co-morbidities impacted this encounter? (DM, HTN, Smoking, COPD, CAD, Cancer, CVA, ARF, Chemo, Hep., AIDS, mental health diagnosis, sleep apnea, morbid obesity)? @ -Recent lobectomy Was patient admitted / discharged? Hospital course, mention meds given and route, prescriptions, significant lab abnormalities, going to OR and other pertinent info. @ -69-year-old female with pain not being treated well with tramadol after surgery. Pain is midline thoracic no injury. Incisions are well-healed. Chest x-ray shows a pleural effusion with no other significant abnormality. X-rays of the thoracic spine are negative. Patient will be switched to [place] for the next several days and she should follow-up with her surgeon. Undiagnosed new problem with uncertain prognosis? @ -No Drug Therapy requiring intensive monitoring for toxicity (Heparin, Nitro, Insulin, Cardizem)? @ -No Were any procedures done? @ -No Diagnosis/symptom? @ -[Thoracic back pain Acute, or Chronic, or Acute on Chronic? @ -Acute Uncomplicated (without systemic symptoms) or Complicated (systemic symptoms)? @ -Default Side effects of treatment? @ -No Exacerbation, Progression, or Severe Exacerbation? @ -No Poses a threat to life or bodily function? How? (Chest pain, [place], [place], pneumonia, PE, COPD, DKA, ARF, appy, cholecystitis, CVA, Diverticulitis, Homicidal, Suicidal, threat to staff... and all critical care pts) @ -No Disposition Clinical Impression: Thoracic back pain Disposition: HOME SELF-CARE Condition: Fair Instructions (If sedation given, give patient instructions): Back Pain (ED) Prescriptions: HYDROcodone/APAP 5-325MG [[place] 5-325] 1 tab PO Q6HR PRN #12 tab PRN Reason: Pain Is patient prescribed a controlled substance at d/c from ED?: No Referrals: None,Stated [REFERRING] - 1-2 days Christ Murrell MD [STAFF PHYSICIAN] - 1-2 days Time of Disposition: 10:52
--- NOTE | 2024-08-20 10:44 | XR ---
EXAMINATION TYPE: XR chest 2V DATE OF EXAM: 08/20/2024 10:35 AM COMPARISON: Chest x-ray 5 days earlier CLINICAL INDICATION: Female, 69 years old with history of pain after lobectomy, TECHNIQUE: Frontal and lateral views of the chest are obtained. FINDINGS: There is new small to moderate size right pleural effusion filling the prior visualized pn eumothorax. Left lung is clear. The cardiac silhouette size is within normal limits with atheroscler otic change in the aortic knob. The osseous structures are intact. IMPRESSION: There is new small to moderate-size right-sided pleural fluid collection filling the prio r visualized pneumothorax. [facility], , 08/20/2024 10:42 AM
--- NOTE | 2024-08-20 10:46 | XR ---
EXAMINATION TYPE: XR thoracic spine 2V DATE OF EXAM: 08/20/2024 10:35 AM COMPARISON: None. CLINICAL INDICATION: Female, 69 years old with history of pain after lobectomy, pain TECHNIQUE: Frontal, lateral, and swimmer's view of thoracic spine are obtained. FINDINGS: Thoracic spine show satisfactory alignment without evidence of acute fracture or dislocatio n. Vertebral body heights and disc space heights are preserved. Visualized ribs are intact bilateral ly. IMPRESSION: No acute fracture or dislocation is seen in the thoracic spine. [facility], , 08/20/2024 10:44 AM
[2024-08-20 11:44] VITALS: BP 147/93; PULSE 64; RESP 18
== END 2024-08-20 11:43 | disposition home or self-care (01) ==
LOC: EC 09:43
DX: M54.6 Pain in thoracic spine (principal); Z87.891 Personal history of nicotine dependence; Z88.8 Allergy status to other drugs, medicaments and biological substances; Z90.2 Acquired absence of lung [part of]
CPT/HCPCS: 71046; 72070; 99283

== ENCOUNTER → 2024-08-29 | Outpatient (CLI) | payer MEDICARE, OTHER ==
--- NOTE | 2024-08-29 23:08 | MR ---
EXAMINATION TYPE: MR thoracic spine wo/w con DATE OF EXAM: 08/29/2024 10:16 PM COMPARISON: None. CLINICAL INDICATION: Female, 69 years old with history of M25.78 OSTEOPHYTE, VERTEBRAE, Severe mid ba ck pain x2 weeks, Hx Bladder and Lung cancer TECHNIQUE: Multiplanar, multiecho imaging on a 3.0 Kaity magnet is performed through the thoracic spi ne. IV Contrast: 5 mL Gadobutrol (None, if empty) FINDINGS: Spinal cord maintains normal signal through its visualized course. Vertebral body alignment is normal. Disc heights are preserved. Disc hydration levels are preserved. No spinal canal stenosis is evident. T6-7: Mild disc bulge has intrathecal sac flattening. No cord contact is evident. No spinal canal clotilde nosis is present. T7: There may be a small Schmorl's node along the inferior endplate of T7. T1: Minimal wedge deformity and superior endplate changes present at T1. Signal within the vertebral body appears the same as adjacent additional vertebral levels. No suspicious edema to suggest acute d eformity is evident. Findings likely an old compression deformity. No posterior wall displacement is evident. No abnormal enhancement is evident. Within the mid to lower right lung field is a T2 hyperintense area which appears hypointense on T1-we ighted images without enhancement is a 7.6 x 2.3 cm area. This may be a loculated effusion. Additiona l workup can be performed with CT chest. IMPRESSION: 1. Old mild compression deformity of T1. 2. Mild disc bulging at T6-7 with mild anterior thecal sac flattening. No stenosis present. 3. Loculated fluid posterior medial right lower lung field.. [facility], , 08/29/2024 11:06 PM
== END | disposition home or self-care (01) ==
LOC: RADMRIMAIN 08:30
PROVIDERS: ATTEND Family Medicine
DX: M25.78 Osteophyte, vertebrae (principal); M50.33 Other cervical disc degeneration, cervicothoracic region
CPT/HCPCS: 72157; A9585

== ENCOUNTER → 2024-09-16 | Outpatient (CLI) | payer MEDICARE, OTHER ==
[2024-09-16 08:59] LABS: ALT 20 U/L (4-34); AST 29 U/L (14-36); African American GFR (CKD) >90 (>60 ml/min/1.73 sqM); Albumin 4.3 g/dL (3.5-5.0); Albumin/Globulin Ratio 1.5; Alkaline Phosphatase 67 U/L (38-126); Anion Gap 7 mmol/L; Blood Urea Nitrogen 23 mg/dL (7-17); Calcium 9.8 mg/dL (8.4-10.2); Carbon Dioxide 30 mmol/L (22-30); Chloride 96 mmol/L (98-107); Globulin 2.8 g/dL; Glucose 93 mg/dL (74-99); Non-African American GFR(CKD) >90 (>60 ml/min/1.73 sqM); Potassium 4.9 mmol/L (3.5-5.1); Sodium 133 mmol/L (137-145); Total Bilirubin 0.8 mg/dL (0.2-1.3); Total Protein 7.1 g/dL (6.3-8.2)
--- NOTE | 2024-09-16 12:14 | CT ---
EXAMINATION TYPE: CT thoracic spine wo/w con DATE OF EXAM: 09/16/2024 9:53 AM COMPARISON: None. 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 TECHNIQUE: Contrast used: mL of Isovue 300 with IV Contrast, (none if empty) Oral contrast used: (none if empty) Axial images at 3 mm thick sections. Reconstructed images in the coronal and sagittal planes. FINDINGS: Lung windows are reviewed. Emphysematous changes are present diffusely. There is some thickening shahnaz g the right posterior medial lung base. This may be a small loculated effusion. Patient status post r ight lobectomy. Thoracic spine: Vertebral body heights are preserved. Disc heights appear preserved. Alignment is nor mal. No suspicious change is evident. No focal disc herniation is identified. IMPRESSION: 1. NO SUSPICIOUS ACUTE THORACIC ABNORMALITY. 2. LOCULATED FLUID ALONG THE POSTERIOR MEDIAL RIGHT LUNG MAY BE POST PNEUMONECTOMY CHANGES. 3. EMPHYSEMATOUS CHANGES DIFFUSELY PRESENT [facility], , 09/16/2024 12:12 PM
== END | disposition home or self-care (01) ==
LOC: RADCTMAIN 07:52
PROVIDERS: ATTEND Student in an Organized Health Care Education/Training Program
DX: J43.9 Emphysema, unspecified (principal); M43.9 Deforming dorsopathy, unspecified; J98.4 Other disorders of lung
CPT/HCPCS: 80053; 72130; 36415; Q9967

== ENCOUNTER 2024-10-21 09:21 | Day surgery (SDC) | payer MEDICARE, OTHER ==
[2024-10-17 16:06] VITALS: BMI 19.7
[~2024-10-21 09:21] MED LIST changes: +HYDROmorphone 0.5 MG/0.5 ML SYRINGE IVP PRN; -ONDANSETRON 4 MG/2 ML VIAL IVP PRN; +fentaNYL (PF) 50 MCG/ML 2 ML AMP IVP PRN
--- NOTE | 2024-10-21 09:57 | P.HPIHPCON ---
History of Present Illness H&P Date: 10/21/24 Chief Complaint: Bladder cancer, bilateral transitional cell carcinoma This is a 69-year-old female with history of high-grade T1 bladder cancer diagnosed back in November 2022 underwent transurethral resection of a bladder tumor, at that time on ureteroscopy there was also evidence of a right sided transitional cell carcinoma lesion involving the renal pelvis, she is status post laser ablation of the tumor on December 2022. had recurrence in May 2023, may 2024 underwent subsequent laser ablation that side. She also developed a left-sided TCC status post laser ablation of that side. Last recurrence on that side was not also in May 2024 she was referred to [facility] and evaluated by Dr. Trevino, patient was not interested in proceeding with bilateral nephro ureterectomy. She also was evaluated by Dr. Simms with medical oncology, and seemed not a candidate for any chemo or immunotherapy at this time. Discussed with her at this point I recommend continued upper tract surveillance with ureteroscopy's. At this time she presents with bilateral diagnostic ureteroscopy with possible laser ablation and stent placement. Discussed we will also evaluate the bladder and if there is evidence of tumor within the bladder then we will proceed with a TURBT. She is aware of the risk which includes but not limited to bleeding, infection, bladder perforation, injury to the ureter, cancer recurrence and the need for additional treatment Consent for Procedure: I have explained the operation/procedure to the patient, including the risks, benefits, side effects, alternative therapies (including not receiving the proposed treatment or service), the likelihood of the patient achieving his/her goals, and potential recuperation problems for the procedure/sedation/analgesia, as well as any blood products, if indicated. I also explained to the patient the risks, benefits and side effects of the alternatives, as well as the risks related to not receiving the proposed procedure, care, treatment, or services. Past Medical History Past Medical History: Asthma, Cancer, COPD, Eye Disorder, GERD/Reflux, Hearing Disorder / Deafness, Osteoarthritis (OA), Renal Disease Additional Past Medical History / Comment(s): Glaucoma, bladder and kidney cancer. sodium issues- maintaining normal levels (Takes supplement). pt states kidneys are functioning well. NATIVE, History of Any Multi-Drug Resistant Organisms: None Reported Past Surgical History: Hysterectomy, Orthopedic Surgery Additional Past Surgical History / Comment(s): tailbone removal, biopsy of kidney and tumor removal on the bladder. lft knee arthrosopy, TURBT, BIILATERAL URETEROSCOPY W/ LASER ABLATION OF RENAL TUMOR, RLLOBE REMOVED,. COLONOCOPY, Past Anesthesia/Blood Transfusion Reactions: Postoperative Nausea & Vomiting (PONV) Additional Past Anesthesia/Blood Transfusion Reaction / Comment(s): Severe PONV, which lead to hyponatremia after last surgery. basically just nausea not alot of vomiting. lack of appetite. no blood tx hx Smoking Status: Former smoker - Past Family History Sister(s) Family Medical History: Cancer Additional Family Medical History / Comment(s): Lung cancer, . Father Family Medical History: Coronary Artery Disease (CAD), Diabetes Mellitus Mother Family Medical History: Diabetes Mellitus, Thyroid Disorder Medications and Allergies Home Medications Medication Instructions Recorded Confirmed Type Brimonidine Tartrate [Alphagan P 1 drops BOTH EYES BID 12/11/22 10/21/24 History 0.2% Ophth Soln] Esomeprazole Magnesium [NexIUM] 40 mg PO QAM 12/11/22 10/21/24 History Fluticasone Propion/Salmeterol 2 puff INHALATION BID 12/11/22 10/21/24 History [Advair Hfa 45-21 Mcg Inhaler] Latanoprost/Pf [Latanoprost 0.005% 1 drop BOTH EYES HS 12/11/22 10/21/24 History Eye Drop] Sodium Chloride Tab 1 gm PO TID 01/03/23 10/21/24 History Calcium Carbonate/Vitamin D3 1 each PO BID 05/28/24 10/21/24 History [Calcium 600-Vit D3 10 mcg (400 Iu)] Multivitamins, Thera [Multivitamin 1 tab PO DAILY 05/28/24 10/21/24 History (formulary)] Acetaminophen [Tylenol Extra 500 - 1,000 mg PO Q6H PRN 08/01/24 10/21/24 History Strength] Albuterol Inhaler [Ventolin Hfa 1 - 2 puff INHALATION Q6H PRN 08/01/24 10/21/24 History Inhaler] Albuterol Nebulized [Ventolin 2.5 mg INHALATION Q6H PRN 08/01/24 10/21/24 History Nebulized] Bacillus Calmette-Gurin (Bcg) 1 dose INTRAVESIC DIRECTED 08/01/24 10/21/24 History Denosumab [Prolia] 60 mg SQ Q180D 08/01/24 10/21/24 History Melatonin 4 - 5 mg PO HS 08/04/24 10/21/24 History polyethylene glycoL 3350 [Miralax] 17 gm PO DAILY PRN #0 08/15/24 10/21/24 Rx HYDROcodone/APAP 10-325MG [[place] 1 tab PO TID PRN 30 Days #90 tab 09/22/24 10/21/24 Rx 10-325] Allergies Allergy/AdvReac Type Severity Reaction Status Date / Time prednisone Allergy severe Verified 10/21/24 09:34 Rash/Hives,irregular heart rate,anxiety propoxyphene [From Darvon] Allergy severe Verified 10/21/24 09:34 body rash Surgical - Exam - General no distress, no pain - Eyes normal ocular movement, no pale - Respiratory normal expansion, normal respiratory effort - Abdomen Abdomen: soft, non tender - Psychiatric oriented to time, oriented to person, oriented to place Assessment and Plan Assessment: OR for cystoscopy, bilateral ureteroscopy, possible laser ablation, possible ureteral stent, possible bladder biopsy
[2024-10-21] MEDS: ONDANSETRON 4 MG/2 ML VIAL IVP ONE (10:00)
[2024-10-21] MEDS: LACTATED RINGERS 1,000 ML IV SCH (10:00)
[2024-10-21] MEDS ORDERED: ePHEDrine 50 MG/ML 1 ML VIAL ONE (10:02)
[2024-10-21] MEDS ORDERED: PHENYLEPHRINE 10 MG/ML VIAL ONE (10:02)
[2024-10-21] MEDS ORDERED: fentaNYL (PF) 50 MCG/ML 2 ML AMP ONE (10:02)
[2024-10-21] MEDS ORDERED: PROPOFOL 10 MG/ML 20 ML VIAL IV ONE (10:02)
[2024-10-21] MEDS: MIDAZOLAM 2 MG/2 ML VIAL IV PRN (10:02)
[2024-10-21] MEDS ORDERED: LIDOCAINE 1% INJ 10MG/ML (20 ML MDV) ONE (10:02)
[2024-10-21] MEDS ORDERED: ACETAMINOPHEN IV (For NPO) 1,000 MG/100 ML VIAL ONE (10:02)
[2024-10-21] MEDS: IV FLUID CONTINUATION 1,000 ML IV ONE ×2 (10:03→12:05)
[2024-10-21] MEDS: IOPAMIDOL-370 50ML BTL MISCELLANE ONE (10:33)
--- NOTE | 2024-10-21 11:30 | FL ---
EXAMINATION TYPE: FL guidance operating room DATE OF EXAM: 10/21/2024 11:17 AM COMPARISON: Pre Operative Images if available both CT/MRI or plain film CLINICAL INDICATION: Female, 69 years old with history of Cysto with litho; TECHNIQUE: FL guidance operating room, multiple fluoroscopic images provided for procedure. DAP: 0.01868 mGym2 Gycm2 uGym2 cGycm2 or equivalent. FINDINGS: Multiple intraoperative fluoroscopic images were taken resulting in ureteral stent placement with sup erior pigtail in appropriate position projecting over the renal pelvis. No immediate intraoperative c omplication. Multilevel degeneration changes throughout the spine. IMPRESSION: 1. No evidence for intraoperative complication. 2. Please see the operative/procedural note for further details. [facility], , 10/21/2024 11:28 AM
--- NOTE | 2024-10-21 11:33 | P.OP ---
Date of Procedure: 10/21/24 Preoperative Diagnosis: Bilateral transitional cell carcinoma, bladder cancer Postoperative Diagnosis: Same Procedure(s) Performed: Cystoscopy, bilateral ureteroscopy, laser ablation of renal tumors, stent insertion Implants: 6 [place] by 22 cm stent in the right ureter, 6 [place] by 24 cm stent in the left ureter Surgeon: Vinny Nova Estimated Blood Loss (ml): 5 Pathology: none sent Condition: stable Disposition: PACU Indications for Procedure: This is a 69-year-old female with history of high-grade T1 bladder cancer diagnosed back in November 2022 underwent transurethral resection of a bladder tumor, at that time on ureteroscopy there was also evidence of a right sided tr ansitional cell carcinoma lesion involving the renal pelvis, she is status post laser ablation of the tumor on December 2022. had recurrence in May 2023, may 2024 underwent subsequent laser ablation that side. She also developed a left- sided TCC status post laser ablation of that side. Last recurrence on that side was not also in May 2024 she was referred to [facility] and evaluated by Dr. Trevino, patient was not interested in proceeding with bilateral nephro ureterectomy. She also was evaluated by Dr. Simms with medical oncology, and seemed not a candidate for any chemo or immunotherapy at this time. Discussed with her at this point I recommend continued upper tract surveillance with ureteroscopy's. At this time she presents with bilateral diagnostic ureteroscopy with possible laser ablation and stent placement. Discussed we will also evaluate the bladder and if there is evidence of tumor within the bladder then we will proceed with a TURBT. She is aware of the risk which includes but not limited to bleeding, infection, bladder perforation, injury to the ureter, cancer recurrence and the need for additional treatment Operative Findings: Multiple papillary tumors throughout the right kidney, multiple hypervascular tumors throughout the left kidney Description of Procedure: Patient brought to the operating room, general anesthesia was induced. She was prepped and draped in sterile fashion and placed in a dorsolithotomy position. Cystoscopy fitted through the 22 [place] sheath was inserted per urethra, cystosc opy was performed which showed no abnormality within the bladder. Attention was then carried to the left ureteral orifice which was intubated with a sensor wire. Next an 1113 [place] access sheath was passed over the wire into the proximal ureter. Next a flexible ureteroscope was inserted through the access sheath, renoscopy was performed which showed multiple tumor throughout the kidney, of note tumor in the renal pelvis was quite large measured greater than 2 cm and hypervascular. At this point using the holmium laser the papillary lesions were ablated, of note there was bleeding from the tumor which significantly limited visualization, I ablated the majority of the tumor, but there was still some residual tumor secondary to backbleeding from the tumor which limited visualization. At this point given the limited visualization and decision was made to not proceed with further ablation of these tumors, more than 50% of the tumors were ablated. Pullback ureteroscopy was performed showed no abnormality within the ureter or any ureteral tumors. Attention was then carried to the right side, cystoscope was reinserted and the right ureter orifice was intubated with a sensor wire. Next 1113 [place] access sheath was passed over the wire and into the proximal ureter under fluoroscopy. Next a flexible scope was inserted through the access sheath, at this point renoscopy was performed showed extensive papillary tumor involving the upper mid and the renal pelvis. There is also involvement of the proximal ureter. Using the holmium laser the tumor was ablated complete ablation of the tumors was performed but of note there was bleeding from the tumor which limited visualization. Pullback ureteroscopy was performed showed no injury to the ureter or any ureteral stones, as ureteroscope was withdrawn a sensor wire was advanced through. Next a ureteral stent was passed over the wire, the proximal curl was visualized on fluoroscopy and the distal curl was visualized using cystoscope. The bladder was emptied at the end of the case. Patient tolerated procedure was taken to recovery in stable condition
[2024-10-21] MEDS ORDERED: ACETAMINOPHEN TAB 325 MG TAB PO PRN (14:46)
[2024-10-21] MEDS: HYDROcodone/APAP 5-325MG 1 EACH TAB PO PRN (15:20)
[2024-10-21] MEDS: SODIUM CHLORIDE 0.9% 1,000 ML IV SCH (15:21)
[2024-10-21] MEDS: SODIUM CHLORIDE TAB 1 GM TAB PO SCH (15:49)
[2024-10-21] MEDS: HEPARIN SODIUM,PORCINE 5,000 UNIT/ML 1 ML VIAL SQ SCH (20:21)
[2024-10-21] MEDS: MELATONIN 5 MG TABLET PO SCH (20:21)
[2024-10-21] MEDS: CALCIUM CARB-VIT D 500 MG-5 MCG TAB PO SCH (20:21)
[2024-10-21] MEDS: ONDANSETRON 4 MG/2 ML VIAL IVP PRN (20:22)
[2024-10-21] MEDS: HYDROcodone/APAP 10-325MG 1 EACH TAB PO PRN (20:22)
[2024-10-21] MEDS: BRIMONIDINE TARTRATE 0.2% DROPS 5 ML BTL BOTH EYES SCH (20:26)
[2024-10-21] MEDS: LATANOPROST 0.005% OPHTH DROPS 2.5 ML BTL BOTH EYES SCH (20:27)
[2024-10-22] MEDS: SYMBICORT 80-4.5 MCG INHALER INHALATION SCH (05:47)
[2024-10-22 07:30] LABS: African American GFR (CKD) 82 (>60 ml/min/1.73 sqM); Anion Gap 5 mmol/L; Blood Urea Nitrogen 26 mg/dL (7-17); Calcium 9.7 mg/dL (8.4-10.2); Carbon Dioxide 32 mmol/L (22-30); Chloride 99 mmol/L (98-107); Glucose 97 mg/dL (74-99); Non-African American GFR(CKD) 71 (>60 ml/min/1.73 sqM); Potassium 4.3 mmol/L (3.5-5.1); Sodium 136 mmol/L (137-145)
[2024-10-22] MEDS: MULTIVITAMINS, THERA 1 EACH TAB PO SCH (09:30)
[2024-10-22] MEDS: PANTOPRAZOLE 40 MG TABLET PO SCH (09:30)
[2024-10-22] MEDS: polyethylene glycoL 3350 17 GM POWD.PACK PO PRN (21:43)
--- NOTE | 2024-10-22 22:09 | P.PN ---
Subjective Progress Note Date: 10/22/24 Having some nausea and flank pain which is improving Objective - Vital Signs Vital signs: Vital Signs Temp 98.3 F 10/22/24 19:59 Pulse 78 10/22/24 19:59 Resp 18 10/22/24 19:59 BP 127/77 10/22/24 19:59 Pulse Ox 94 L 10/22/24 19:59 FiO2 Intake & Output 10/22/24 10/22/24 10/23/24 06:59 18:59 06:59 Intake Total 1320 Output Total 3 Balance 1317 Intake: Oral 1320 Output: Urine 3 Other: Voiding Method Toilet Toilet - Constitutional General appearance: Present: no acute distress - Gastrointestinal General gastrointestinal: Present: soft. Absent: distended, tenderness - Labs CBC & Chem 7: 10/22/24 06:48 Labs: Abnormal Lab Results - Last 24 Hours (Table) 10/22/24 Range/Units 06:48 Sodium 136 L (137-145) mmol/L Carbon Dioxide 32 H (22-30) mmol/L BUN 26 H (7-17) mg/dL Assessment and Plan Assessment: S/P bilateral ureteroscopy with laser ablation, admitted for nauseas and pain post surgery -pain control -continue zofran for nausea -Plan on discharging home tomorrow
[2024-10-23 07:36] VITALS: RESP 18
[2024-10-23 12:31] VITALS: BP 151/90; PULSE 72; TEMP 98.1
--- NOTE | 2024-10-23 12:53 | P.DS ---
Providers Attending physician: Vinny Nova MD Primary care physician: Ning Coats DO Hospital Course: This is a 69-year-old female with history of bilateral TCC. Underwent bilateral ureteroscopy with laser ablation on October 21. Please see op note dated October 21 for surgery details. Patient was admitted to the hospital for pain control and nausea. This improved on postop day #2. She was discharged home on postop day #2, at time of discharge she was tolerating a diet, ambulating, pain was controlled Plan - Discharge Summary Discharge Rx Participant: No New Discharge Prescriptions: New Ketorolac [Toradol] 10 mg PO Q6HR PRN #15 tab PRN Reason: Pain Cephalexin [Keflex] 500 mg PO Q12HR #10 cap ondansetron HCL [Zofran] 8 mg PO Q8HR PRN #20 tab PRN Reason: Nausea And Vomiting No Action Latanoprost/Pf [Latanoprost 0.005% Eye Drop] 1 drop BOTH EYES HS Esomeprazole Magnesium [NexIUM] 40 mg PO QAM Brimonidine Tartrate [Alphagan P 0.2% Ophth Soln] 1 drops BOTH EYES BID Multivitamins, Thera [Multivitamin (formulary)] 1 tab PO DAILY Albuterol Inhaler [Ventolin Hfa Inhaler] 1 - 2 puff INHALATION Q6H PRN PRN Reason: sob Denosumab [Prolia] 60 mg SQ Q180D Bacillus Calmette-Gurin (Bcg) 1 dose INTRAVESIC DIRECTED polyethylene glycoL 3350 [Miralax] 17 gm PO DAILY PRN #0 PRN Reason: Constipation Fluticasone Propion/Salmeterol [Advair Hfa 45-21 Mcg Inhaler] 2 puff INHALATION BID Sodium Chloride Tab 1 gm PO TID Calcium Carbonate/Vitamin D3 [Calcium 600-Vit D3 10 mcg (400 Iu)] 1 each PO BID Albuterol Nebulized [Ventolin Nebulized] 2.5 mg INHALATION Q6H PRN PRN Reason: sob Acetaminophen [Tylenol Extra Strength] 500 - 1,000 mg PO Q6H PRN PRN Reason: Pain Melatonin 4 - 5 mg PO HS HYDROcodone/APAP 10-325MG [[place] 10-325] 1 tab PO TID PRN 30 Days #90 tab PRN Reason: Pain Discharge Medication List Brimonidine Tartrate [Alphagan P 0.2% Ophth Soln] 1 drops BOTH EYES BID 12/11/22 [History] Esomeprazole Magnesium [NexIUM] 40 mg PO QAM 12/11/22 [History] Fluticasone Propion/Salmeterol [Advair Hfa 45-21 Mcg Inhaler] 2 puff INHALATION BID 12/11/22 [History] Latanoprost/Pf [Latanoprost 0.005% Eye Drop] 1 drop BOTH EYES HS 12/11/22 [History] Sodium Chloride Tab 1 gm PO TID 01/03/23 [History] Calcium Carbonate/Vitamin D3 [Calcium 600-Vit D3 10 mcg (400 Iu)] 1 each PO BID 05/28/24 [History] Multivitamins, Thera [Multivitamin (formulary)] 1 tab PO DAILY 05/28/24 [History] Acetaminophen [Tylenol Extra Strength] 500 - 1,000 mg PO Q6H PRN 08/01/24 [History] Albuterol Inhaler [Ventolin Hfa Inhaler] 1 - 2 puff INHALATION Q6H PRN 08/01/24 [History] Albuterol Nebulized [Ventolin Nebulized] 2.5 mg INHALATION Q6H PRN 08/01/24 [History] Bacillus Calmette-Gurin (Bcg) 1 dose INTRAVESIC DIRECTED 08/01/24 [History] Denosumab [Prolia] 60 mg SQ Q180D 08/01/24 [History] Melatonin 4 - 5 mg PO HS 08/04/24 [History] polyethylene glycoL 3350 [Miralax] 17 gm PO DAILY PRN #0 08/15/24 [Rx] HYDROcodone/APAP 10-325MG [[place] 10-325] 1 tab PO TID PRN 30 Days #90 tab 09/22/24 [Rx] Cephalexin [Keflex] 500 mg PO Q12HR #10 cap 10/23/24 [Rx] Ketorolac [Toradol] 10 mg PO Q6HR PRN #15 tab 10/23/24 [Rx] ondansetron HCL [Zofran] 8 mg PO Q8HR PRN #20 tab 10/23/24 [Rx] Follow up Appointment(s)/Referral(s): Vinny Nova MD [STAFF PHYSICIAN] - 10/24/24 11:20 am Discharge Disposition: HOME SELF-CARE
== END 2024-10-23 14:45 | disposition home or self-care (01) ==
LOC: OR 09:21 → 5NMEDONC 11:08 → OR 10-23 14:45
PROVIDERS: ATTEND Urology
DX: C67.9 Malignant neoplasm of bladder, unspecified (principal); C64.1 Malignant neoplasm of right kidney, except renal pelvis; C64.2 Malignant neoplasm of left kidney, except renal pelvis
CPT/HCPCS: 80048; 52356; 52354; C2625 ×2; C1758; J2250; J1644 ×3; J2405; Q9967

== ENCOUNTER → 2024-11-11 | Outpatient (CLI) | payer MEDICARE, OTHER ==
[2024-11-11 12:35] LABS: African American GFR (CKD) >90 (>60 ml/min/1.73 sqM); Blood Urea Nitrogen 29 mg/dL (7-17); Non-African American GFR(CKD) >90 (>60 ml/min/1.73 sqM)
--- NOTE | 2024-11-11 14:22 | CT ---
EXAMINATION TYPE: CT ChestAbdPelvis w con DATE OF EXAM: 11/11/2024 COMPARISON: CT chest 07/03/[address] urogram dated 01/11/2024. CLINICAL INDICATION: Female, 69 years old with history of C34.[address] DLP: 440.7 mGycm Automated exposure control for dose reduction was used. CONTRAST: CT scan of the chest, abdomen and pelvis is performed with Oral Contrast and with IV Contrast, patien t injected with 100ml mL of Isovue 300. FINDINGS: CT chest: There are postsurgical changes of right lung lobectomy. There is no suspicious lung mass or nodule. There is no abnormal airspace/consolidative density or abnormal interstitial density. There is no pleural effusion pneumothorax. There is mild pleural thickening in the right lung base po steriorly. The great vessels and chest are normal there is no mediastinal, hilar or axillary adenopathy. No focal osseous lesions are seen. CT abdomen and pelvis: Gallbladder is normal without distention, pericholecystic fluid, wall thickening or gallstone. There is no biliary ductal dilatation. There is no focal mass or organomegaly involving the liver, pancreas, spleen or adrenal glands.. Ther e is a stable 2 cm cyst in the liver. There is no solid renal mass or hydronephrosis. There is no retroperitoneal adenopathy or hemorrhage in the caliber of the abdominal aorta is normal. The bowel loops are normal in caliber and there is no dilatation or obstruction. No inflammatory silverio ges identified in the bowel wall and mesentery. There is no free intracranial air or fluid. There is no pelvic mass or adenopathy. There is no free fluid within the pelvis. No focal osseous lesions are seen. Soft tissue the abdomen and pelvis are normal. IMPRESSION: No evidence of recurrent or metastatic disease. [facility], , 11/11/2024 2:20 PM
== END | disposition home or self-care (01) ==
LOC: RADCTMAIN 11:44
PROVIDERS: ATTEND Internal Medicine Hematology & Oncology
DX: C34.11 Malignant neoplasm of upper lobe, right bronchus or lung (principal); C65.1 Malignant neoplasm of right renal pelvis; C67.9 Malignant neoplasm of bladder, unspecified
CPT/HCPCS: 82565; 84520; 71260; 74177; 36415; Q9967